=== PATIENT | female | born 1935 | race Caucasian/White ===

== ENCOUNTER 2018-01-15 15:45 | Inpatient (IN) | payer OTHER ==
--- OUTSIDE RECORDS SUMMARY | 2018-01-15 15:47 | XMS REPORT ---
:1935 Author Organization [employer] Care Team Providers Name Role Phone Mccarty, Na Provider Role Unavailable Allergies, Adverse Reactions, Alerts Substance Reaction Event Type Bactrim DS Info Not Available Drug Allergy Problems Problem Type Condition Code Onset Dates Condition Status Problem Mixed hyperlipidemia E78.2 Active Problem Pulmonary fibrosis J84.10 Active Problem Spondylosis M47.9 Active Problem Hypertension I10 Active Problem Anxiety F41.9 Active Problem Allergic rhinitis J30.9 Active Problem Hemorrhoids K64.9 Active Problem Fibrocystic breast N60.19 Active Problem GERD (gastroesophageal reflux K21.9 Active disease) Problem Urinary tract infection N39.0 Active Assessment Pulmonary hypertension I27.20 Active Assessment Anxiety F41.9 Active Assessment Pulmonary fibrosis J84.10 Active Problem At risk for falls Z91.81 Active Problem Iron deficiency anemia due to D50.8 Active dietary causes Assessment Iron deficiency anemia due to D50.8 Active dietary causes Problem Carotid occlusion, 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 Active Assessment Mixed hyperlipidemia E78.2 Active Problem Atopic dermatitis L20.9 Active Medications Medication Code Code Instructions Start End Status Dosage System Date Date [facility] 42364895042 81 MG Orally Active 1 tablet Once a day Nasacort [facility] 44409221423 55 MCG/ACT Active 1 puff in Allergy 24HR Nasally Once a each nostril day Breo Ellipta [facility] 36605791073 100-25 MCG/INH Active 1 puff Inhalation Once a day Omeprazole [facility] 78761587086 20 MG Orally Active 1 capsule Once a day Xanax [facility] [address]-64 0.25 MG Orally Active 1 tablet once a day Celexa [facility] 17688831180 20 MG Orally Active 1 tablet Once a day Zyrtec Allergy [facility] 32611825829 10 MG Orally Active 1 tablet Once a day Ventolin HFA [facility] [address]-56 90 MCG/ACT Active 2 puffs as Inhalation needed every 6 hrs Nystatin [facility] [address]-58 770002 UNIT/GM Active 1 application Externally to affected every 8 hrs area Ferrous [facility] [address]-77 325 (65 Fe) MG Active 1 tablet Sulfate Orally twice a day Simvastatin [facility] 03664834402 80 MG Orally Active 1 tablet in Once a day the evening Coreg [facility] [address]-17 6.25 MG Orally Active 1tablet twice a day Diflucan [facility] 74120806356 150 MG Orally Active 1 tablet Results No Known Results Summary Purpose e[employer]Works Submission
--- OUTSIDE RECORDS SUMMARY | 2018-01-15 15:47 | XMS REPORT | Clinical Summary ---
:1935 Author Organization [facility] Address [address] [place] [address] Care Team Providers Name Role Phone Hedy Mccarty DO Primary Care Provider Allergies Active Allergy Reactions Severity Noted Date Comments Sulfa (Sulfonamide Antibiotics) 05/09/2017 Current Medications Prescription Sig. Disp. Refills Start Date End Date Status VENTOLIN HFA 90 04/17/2017 Active mcg/actuation inhaler LUMIGAN 0.01 % ophthalmic 0.01 drops. 03/08/2017 Active drops carvedilol (COREG) 6.25 MG 6.25 mg. 04/10/2017 Active tablet citalopram (CeleXA) 20 MG 20 mg. 04/10/2017 Active tablet BREO ELLIPTA 100-25 04/17/2017 Active mcg/dose blister with device powder for inhalation omeprazole (PriLOSEC) 20 20 mg. 03/24/2017 Active MG capsule simvastatin (ZOCOR) 80 MG 80 mg. 04/10/2017 Active tablet timolol (TIMOPTIC) 0.5 % 03/03/2017 Active ophthalmic solution aspirin 325 MG tablet Take 325 mg by Active mouth daily. Active Problems Problem Noted Date Lymph nodes enlarged 06/05/2017 Encounters Date Type Specialty Care Team Description 06/27/2017 Telephone Cardiothoracic Surgery Neetu Reyna NP 06/10/2017 Telephone Cardiothoracic Surgery Mert Malhotra MD 06/05/2017 - Hospital Encounter Cardiology Mert Malhotra Lymph nodes 06/06/2017 MD Maryann enlarged 06/05/2017 Anesthesia Event Cardiothoracic Surgery Priyanka Vargas MD 06/05/2017 Procedure Pass Cardiothoracic Surgery 06/05/2017 Surgery Cardiothoracic Surgery Mert Malhotra MD BRONCHOSCOPY 06/04/2017 Telephone Cardiothoracic Surgery Neetu Reyna NP 05/27/2017 Telephone Cardiothoracic Surgery Diamond Bhatia MA 05/09/2017 Hospital Encounter Radiology Mert Malhotra MD 05/09/2017 Hospital Encounter Radiology Mert Malhotra MD 05/09/2017 Lab Lab Mert Malhotra MD 05/09/2017 Office Visit Cardiothoracic Surgery Mert Malhotra LAD ( lymphadenopathy), mediastinal (Primary Dx); MD Maryann SOB (shortness of breath); Pre-op testing 05/09/2017 Ancillary Orders Radiology Mert Malhotra MD after 01/14/2017 Family History Medical History Relation Name Comments Alzheimer's disease Brother Prostate cancer Brother Heart disease Father Stroke Father Arthritis Mother Breast cancer Sister Relation Name Status Comments Brother Father Mother Sister Social History Tobacco Use Types Packs/Day Years Used Date Never Smoker Alcohol Use Drinks/Week oz/Week Comments No Sex Assigned at Date Recorded Not on file Last Filed Vital Signs Vital Sign Reading Time Taken Blood Pressure 152/93 06/06/2017 11:43 AM CDT Pulse 89 06/06/2017 11:43 AM CDT Temperature 36.8 C (98.2 F) 06/06/2017 7:52 AM CDT Respiratory Rate 20 06/06/2017 7:52 AM CDT Oxygen Saturation 94% 06/06/2017 11:43 AM CDT Inhaled Oxygen Concentration - - Weight 72.5 kg (159 lb 13.3 oz) 06/06/2017 4:55 AM CDT Height 162.6 cm (5' 4") 06/05/2017 5:55 AM CDT Body Mass Index 27.44 06/06/2017 4:55 AM CDT Plan of Treatment Health Maintenance Due Date Last Done Comments SHINGRIX VACCINE (#1) 01/14/1984 ZOSTER VACCINE 1994 PNEUMOCOCCAL POLYSACCHARIDE VACCINE AGE 65 AND OVER 1999 PNEUMOCOCCAL-13 1999 INFLUENZA VACCINE 03/12/2018 Procedures Procedure Name Priority Date/Time Associated Diagnosis Comments NJ AN ELECTIVE Routine 06/05/2017 8:31 AM ENDOTRACHEAL AIRWAY CDT Procedure Note - Priyanka Vargas MD - 06/05/2017 8:30 AM CDT Airway Performed by: PRIYANKA VARGAS Authorized by: PRIYANKA VARGAS Location: OR Urgency: Elective Difficult Airway: No Anesthesiologist: PRIYANKA VARGAS Resident/RECEPTION AGENT: VITO QUINONES Preoxygenated with 100% O2: Yes C-spine Precautions Maintained Throughout: Yes Mask Ventilation: Assisted mask Final Airway Type: Endotracheal airway Final Endotracheal Airway: ETT Cuffed: Yes Technique Used: Direct laryngoscopy Insertion Site: Oral Blade Type: Rose Laryngoscope Blade/Videolaryngoscope Blade Size: 2 ETT Size (mm): 8.5 Cuff at minimum occlusion pressure: Yes Measured from: Lips ETT to Lips (cm): 20 Placement Verified by: CO2 detection, direct visualization and equal breath sounds Laryngoscopic view: Grade I - full view of glottis Rapid Sequence Induction (RSI): No Number of Attempts at Approach: 1 x1 attempt easy, atraumatic, lips and teeth as preinduction Mask vent with OPAW Eyes taped after LOLr and prior to Mask ventilation after 01/14/2017 Results Estimated GFR (06/06/2017 5:40 AM)Only the most recent of2 resultswithin the time period is included. Component Value Ref Range GFR Non Af Amer 68 mL/min/1.73 m2 GFR Af Amer 83 mL/min/1.73 m2 Comment: Chronic kidney disease: <60 mL/min/1.73m2 Kidney failure: <15 mL/min/1.73m2 The estimated GFR is calculated from the IDMS-traceable Modification of Diet in Renal Disease Equation. The accuracy of the calculation is poor when the creatinine is normal. Calculated values >90 mL/min/1.73m2 are not reported. This equation has not been validated in children (<18 years), women, the elderly (>70 years), or ethnic groups other than Caucasians and Americans. Specimen Performing Laboratory Plasma specimen [facility] DEPARTMENT OF PATHOLOGY AND GENOMIC MEDICINE [address] [place] [address] CBC with platelet and differential (06/06/2017 5:40 AM)Only the most recent of2 resultswithin the time period is included. Component Value Ref Range WBC 7.58 4.50 - 11.00 k/uL RBC 3.61 (L) 4.20 - 5.50 m/uL HGB 10.6 (L) 12.0 - 16.0 g/dL HCT 32.3 (L) 37.0 - 47.0 % MCV 89.5 82.0 - 100.0 fL MCH 29.4 27.0 - 34.0 pg MCHC 32.8 31.0 - 37.0 g/dL RDW - SD 45.7 37.0 - 55.0 fL MPV 10.0 8.8 - 13.2 fL Platelet count 188 150 - 400 k/uL Nucleated RBC 0.00 /100 WBC Neutrophils 68.5 39.0 - 69.0 % Lymphocytes 20.6 (L) 25.0 - 45.0 % Monocytes 7.4 0.0 - 10.0 % Eosinophils 2.8 0.0 - 5.0 % Basophils 0.3 0.0 - 1.0 % Immature granulocytes 0.4Comment: "Immature granulocytes" 0.0 - 1.0 % (promyelocytes, myelocytes, metamyelocytes) Specimen Performing Laboratory [facility] DEPARTMENT OF PATHOLOGY AND [facility] MEDICINE [address] [place] [address] Basic metabolic panel (06/06/2017 5:40 AM) Component Value Ref Range Sodium 130 (L) 135 - 148 mEq/L Potassium 4.0 3.5 - 5.0 mEq/L Chloride 91 (L) 98 - 112 mEq/L CO2 25 24 - 31 mEq/L Anion gap 14 7 - 15 mEq/L Comment: Starting from November , anion gap calculation no longer incorporates potassium. Please note the change. BUN 10 8 - 23 mg/dL Creatinine 0.8 0.5 - 0.9 mg/dL Glucose 92 65 - 99 mg/dL Calcium 9.1 8.8 - 10.2 mg/dL Specimen Performing Laboratory Plasma specimen [facility] DEPARTMENT OF PATHOLOGY AND GENOMIC MEDICINE [address] [place] [address] AFB culture (06/05/2017 10:22 AM) Component Value Ref Range AFB culture isolate No growth after 6 weeks of incubation. Comment: Specimen Information Specimen Source: Biopsy Specimen Site: Lymph node , 4Right FNA Specimen Performing Laboratory Tissue - Other [facility] DEPARTMENT OF PATHOLOGY AND [facility] MEDICINE [address] [place] [address] Fungus culture (06/05/2017 10:22 AM) Component Value Ref Range Fungus culture isolate No growth after 4 weeks of incubation. Comment: Specimen Information Specimen Source: Biopsy Specimen Site: Lymph node , 4Right FNA Specimen Performing Laboratory Tissue - Other [facility] DEPARTMENT OF PATHOLOGY AND GENOMIC MEDICINE [address] [place] [address] XR Chest 1 Vw Portable (06/05/2017 10:18 AM) Specimen Performing Laboratory [facility] [address] [place] [address] Narrative EXAMINATION:XR CHEST 1 VW PORTABLE CLINICAL HISTORY:SHORTNESS OF BREATH COMPARISON:None. IMPRESSION: Single frontal view reveals a normal cardiomediastinal silhouette, apart from arch calcifications. Pulmonary vasculature is prominent with diffuse patchy airspace opacities concerning for multilobar pneumonia. The remainder of the examination is unremarkable, apart from degenerative changes of the shoulders. [facility]-[id number] Procedure Note Interface, Radiology Results Incoming - 06/05/2017 10:28 AM CDT EXAMINATION: XR CHEST 1 VW PORTABLE CLINICAL HISTORY: SHORTNESS OF BREATH COMPARISON: None. IMPRESSION: Single frontal view reveals a normal cardiomediastinal silhouette, apart from arch calcifications. Pulmonary vasculature is prominent with diffuse patchy airspace opacities concerning for multilobar pneumonia. The remainder of the examination is unremarkable, apart from degenerative changes of the shoulders. [facility]-[id number] Fungus smear (06/05/2017 9:22 AM) Component Value Ref Range Fungus smear No fungi observed. Comment: Specimen Information Specimen Source: Biopsy Specimen Site: Lymph node , 4Right FNA Specimen Performing Laboratory Biopsy [facility] DEPARTMENT OF PATHOLOGY AND GENOMIC MEDICINE [address] [place] [address] Aerobic culture (06/05/2017 9:22 AM) Component Value Ref Range Aerobic culture isolate No growth after 3 days. Comment: Specimen Information Specimen Source: Biopsy Specimen Site: Lymph node , 4Right FNA Specimen Performing Laboratory Tissue - Other [facility] DEPARTMENT OF PATHOLOGY AND GENOMIC MEDICINE [address] [place] [address] Gram stain (06/05/2017 9:22 AM) Component Value Ref Range Gram stain isolate Few WBC's No organisms seen Comment: Specimen Information Specimen Source: Biopsy Specimen Site: Lymph node , 4Right FNA Specimen Performing Laboratory Biopsy [facility] DEPARTMENT OF PATHOLOGY AND GENOMIC MEDICINE [address] [place] [address]33 AFB stain (06/05/2017 9:22 AM) Component Value Ref Range AFB stain No acid fast bacilli (AFB) seen. Comment: Specimen Information Specimen Source: Biopsy Specimen Site: Lymph node , 4Right FNA Specimen Performing Laboratory Biopsy [facility] DEPARTMENT OF PATHOLOGY [address] [address] Anaerobic culture (06/05/2017 9:22 AM) Component Value Ref Range Anaerobic culture isolate No anaerobic organisms isolated. Comment: Specimen Information Specimen Source: Biopsy Specimen Site: Lymph node , 4Right FNA Specimen Performing Laboratory Tissue - Other [facility] OF PATHOLOGY [address] [address] Flow cytometry evaluation (06/05/2017 8:40 AM) Component Value Ref Range Flow cytometry evaluation See link below for PDF Lab Report Specimen Performing Laboratory [facility] DEPARTMENT PATHOLOGY [address] [address] Cytology (non-gynecological) request (06/05/2017 8:40 AM)Only the most recent of2 resultswithin the time period is included. Component Value Ref Range Cytology (non-gynecological) report See link below for PDF Lab Report Specimen Performing Laboratory [facility] DEPARTMENT OF PATHOLOGY AND [address] [address] Type and screen (06/05/2017 6:40 AM)Only the most recent of2 resultswithin the time period is included. Component Value Ref Range ABO grouping O Rh type POS Antibody screen (gel) NEG Specimen Performing Laboratory Blood [facility] DEPARTMENT OF PATHOLOGY [address] [address] Partial thromboplastin time, activated (05/09/2017 4:00 PM) Component Value Ref Range PTT 26.9 23.0 - 36.0 sec Comment: PTT therapeutic range for unfractionated heparin is 61.0-112.0 seconds which corresponds to Anti-Xa 0.3-0.7 U/ml. Specimen Performing Laboratory Blood [facility] DEPARTMENT PATHOLOGY [address] [address] Prothrombin time with INR (05/09/2017 4:00 PM) Component Value Ref Range Prothrombin time 12.8 12.0 - 15.0 sec INR 1.0 Comment: The International Normalized Ratio (INR) is a therapeutic monitoring tool for patients who are stable on oral anticoagulant therapy. An INR of 2.0-3.0 is suggested for deep vein thrombosis/pulmonary embolism. Specimen Performing Laboratory Blood [facility] DEPARTMENT OF PATHOLOGY AND GENOMIC MEDICINE [address] [place] [address] Comprehensive metabolic panel (05/09/2017 4:00 PM) Component Value Ref Range Sodium 140 135 - 148 mEq/L Potassium 5.0 3.5 - 5.0 mEq/L Chloride 101 98 - 112 mEq/L CO2 26 24 - 31 mEq/L Anion gap 13 7 - 15 mEq/L Comment: Starting from November , anion gap calculation no longer incorporates potassium. Please note the change. BUN 19 8 - 23 mg/dL Creatinine 1.1 (H) 0.5 - 0.9 mg/dL Glucose 106 (H) 65 - 99 mg/dL Calcium 9.7 8.8 - 10.2 mg/dL Protein 7.3 6.3 - 8.3 g/dL Comment: Bern 4.6-7.0 g/dL 1 week 4.4-7.6 g/dL 7 months-1year5.1-7.3 g/dL 1-2 years5.6-7.5 g/dL >3 years6.0-8.0 g/dL 18-150 6.3-8.3 g/dL Albumin 3.6 3.5 - 5.0 g/dL A/G ratio 1.0 0.7 - 3.8 Alkaline phosphatase 66 35 - 104 U/L AST 29 10 - 35 U/L ALT 23 5 - 50 U/L Total bilirubin <0.2 0.0 - 1.2 mg/dL Specimen Performing Laboratory Plasma specimen [facility] DEPARTMENT OF PATHOLOGY AND GENOMIC MEDICINE [address] [place] [address] Chest External Study (05/02/2017 1:55 PM)Only the most recent of2 resultswithin the time period is included. Specimen Performing Laboratory [facility] [address] [place] [address] Narrative This exam was not acquired at a [facility] facility and has not been interpreted by a [facility] Provider.The exam was imported into our imaging system for comparisons purposes. after 01/14/2017 Insurance Payer Benefit Plan / Group Subscriber ID Type Phone Address [address] [facility] xxxxxxxxx O
[2018-01-15 17:09] LABS: Absolute Lymphocytes (CBC) 0.5 K/uL (0.7-4.9); Absolute Monocytes 0.3 K/uL (0.1-1.3); Basophils % 0.4 % (0-1.3); Eosinophils % 1.1 % (0-4.4); Hematocrit 35.3 % (36.0-45.0); Lymphocytes % 6.1 % (15.3-44.8); MCH 31.3 pg (27.0-35.0); MCV 94.2 fL (80-100); MPV 8.3 fL (7.6-11.3); Monocytes % 3.2 % (3.3-12.3); RBC Red Blood Cell Count 3.75 M/uL (3.86-4.86)
[2018-01-15 17:15] LABS: Arterial Blood Carboxyhemoglob 1.4 % (0-1.5); Blood Gas Oxyhemoglobin 91.6 % (94-97); Blood O2 Saturation 93.9 % (92-98.5)
[2018-01-15 17:18] LABS: Protime INR 1.06
[2018-01-15] MEDS ORDERED: FUROSEMIDE 40 MG/4 ML VIAL ONE ×2 (17:21→17:52)
[2018-01-15 17:22] LABS: Potassium 4.6 mEq/L (3.6-5.0)
[2018-01-15 17:28] LABS: Albumin 3.5 g/dL (3.2-5.5); Bilirubin Direct 0.1 mg/dL (0-0.2); Bilirubin Total 0.6 mg/dL (0.3-1.2)
[2018-01-15 17:31] LABS: CKMB Creatine Kinase MB 5.6 ng/ml (0.3-4.0)
[2018-01-15 17:34] LABS: Magnesium 1.4 mg/dL (1.8-2.5)
--- NOTE | 2018-01-15 17:34 | RAD REPORT ---
[facility] 5:23 pm CLINICAL HISTORY: sob COMPARISON: August 2017 FINDINGS: Moderate bilateral pulmonary opacities are seen. The heart is enlarged. Mediastinal lymph adenopathy is unchanged. . The heart is normal size IMPRESSION: Moderate bilateral pulmonary opacities. This probably represents mild pulmonary edema, pneumonia or pneumonitis superimposed over pulmonary fibrosis
[2018-01-15] MEDS ORDERED: ALBUTEROL 2.5 MG/3 ML NEB SOL ONE (17:52)
[2018-01-15] MEDS ORDERED: ONDANSETRON 4 MG/2 ML VIAL IV PRN (18:02)
[2018-01-15] MEDS ORDERED: ACETAMINOPHEN 500 MG TAB PO PRN (18:02)
[2018-01-15] MEDS ORDERED: ALBUTEROL 2.5 MG/3 ML NEB SOL NEB PRN (18:02)
[2018-01-15] MEDS ORDERED: IPRATROPIUM BROM 0.5MG/2.5ML NEB PRN (18:02)
[2018-01-15] MEDS ORDERED: Magnesium Sulfate 2gm IVPB 2 G/50 ML BAG IV ONE (18:03)
--- NOTE | 2018-01-15 18:19 | EDPHYS ---
Physician Documentation [facility] Name: Herlinda Matias Age: 83 yrs Sex: Female : 1935 Arrival Date: 01/15/2018 Time: 15:51 Bed 23 Private MD: Chris Pierce K ED Physician Yusef Fuentes HPI: 01/15 18:05 This 83 yrs old Female presents to ER via Ambulatory with complaints of Leg pm1 Swelling and Shortness of breath. 18:05 The patient has shortness of breath at rest. Onset: The symptoms/episode began/occurred pm1 3 day(s) ago. Duration: The symptoms are continuous, and are steadily getting worse. The patient's shortness of breath is aggravated by exertion, is alleviated by nothing. Associated signs and symptoms: Pertinent negatives: chest pain, productive cough, fever. Severity of symptoms: in the emergency department the symptoms are worse Pain is currently a 0 / 10. Patient denies having pedal edema in the past. PCP Lul, Pulmonology Stan. Patient reports 10 pound weight gain over the past 3 days. Patient currently taking spirolactone for diuresis. Historical: - Allergies: 16:04 Sulfa (Sulfonamide Antibiotics); aj - Home Meds: 16:04 aspirin 325 mg Oral tab 1 tab once daily [Active]; citalopram 20 mg tab 1 tab once aj daily [Active]; ferrous sulfate 325 mg (65 mg iron) Oral tab three times a day [Active]; Keflex 500 mg Oral cap 1 cap daily [Active]; omeprazole 20 mg Oral cpDR 1 cap once daily [Active]; sildenafil 20 mg Oral tab 1 tab 3 times per day [Active]; simvastatin 80 mg Oral tab 80 mg daily [Active]; timolol maleate 0.5 % Opht solg 1 drop once daily [Active]; Ventolin HFA 90 mcg/actuation Nebulizer HFAA 2 puffs every 4 hours [Active]; Vitamin C 500 mg Oral tab every morning [Active]; Zyrtec 10 mg Oral tab 1 tab once daily [Active]; 16:06 metoprolol tartrate 25 mg Oral tab 1 tab once daily [Active]; spironolactone 25 mg Oral aj tab 1 tab once daily [Active]; - PMHx: 16:04 Anxiety; pulmonary fibrosis; PULMONARY HYPERTENSION; aj - PSHx: 16:04 None; aj - Immunization history:: Adult Immunizations up to date. - Social history:: Smoking status: Patient/guardian denies using tobacco. - Ebola Screening: : Patient negative for fever greater than or equal to 101.5 degrees Fahrenheit, and additional compatible Ebola Virus Disease symptoms Patient denies exposure to infectious person Patient denies travel to an Ebola-affected area in the 21 days before illness onset No symptoms or risks identified at this time. ROS: 18:05 Constitutional: Negative for fever, chills, and weight loss, Eyes: Negative for injury, pm1 pain, redness, and discharge, ENT: Negative for injury, pain, and discharge, Neck: Negative for injury, pain, and swelling. 18:05 Abdomen/GI: Negative for abdominal pain, nausea, vomiting, diarrhea, and constipation, Back: Negative for injury and pain, MS/Extremity: Negative for injury and deformity, Skin: Negative for injury, rash, and discoloration. 18:05 Cardiovascular: Positive for edema, Negative for chest pain. 18:05 Respiratory: Positive for shortness of breath. 18:05 Neuro: Positive for Forgetfulness , Negative for altered mental status, dizziness, headache. Exam: 18:05 Constitutional: This is a well developed, well nourished patient who is awake, alert, pm1 and in no acute distress. Head/Face: Normocephalic, atraumatic. Eyes: Pupils equal round and reactive to light, extra-ocular motions intact. Lids and lashes normal. Conjunctiva and sclera are non-icteric and not injected. Cornea within normal limits. Periorbital areas with no swelling, redness, or edema. ENT: Nares patent. No nasal discharge, no septal abnormalities noted. Tympanic membranes are normal and external auditory canals are clear. Oropharynx with no redness, swelling, or masses, exudates, or evidence of obstruction, uvula midline. Mucous membranes moist. Neck: Trachea midline, no thyromegaly or masses palpated, and no cervical lymphadenopathy. Supple, full range of motion without nuchal rigidity, or vertebral point tenderness. No Meningismus. Chest/axilla: Normal chest wall appearance and motion. Nontender with no deformity. No lesions are appreciated. 18:05 Abdomen/GI: Soft, non-tender, with normal bowel sounds. No distension or tympany. No guarding or rebound. No evidence of tenderness throughout. Back: No spinal tenderness. No costovertebral tenderness. Full range of motion. Skin: Warm, dry with normal turgor. Normal color with no rashes, no lesions, and no evidence of cellulitis. MS/ Extremity: Pulses equal, no cyanosis. Neurovascular intact. Full, normal range of motion. 18:05 Cardiovascular: Rate: normal, Rhythm: regular, Pulses: no pulse deficits are appreciated, Heart sounds: normal, normal S1and S2, murmur, not appreciated, rub, not appreciated, gallop, not appreciated, Edema: pedal edema, that is moderate, 3+. 18:05 Respiratory: the patient does not display signs of respiratory distress, Respirations: normal, Breath sounds: decreased breath sounds, are located in both bases. 18:05 Neuro: Orientation: is normal, Motor: moves all fours, Sensation: is normal, no obvious gross deficits. Vital Signs: 16:06 BP 98 / 63; Pulse 86; Resp 25; Temp 97.8; Pulse Ox 88% on 2 lpm NC; Weight 77.11 kg; aj Height 5 ft. 5 in. (165.10 cm); 17:30 BP 105 / 60; Pulse 85; Resp 24; Pulse Ox 95% on R/A; kr2 18:30 BP 101 / 70; Pulse 75; Resp 26; Pulse Ox 93% on 2 lpm NC; kr2 19:30 BP 128 / 75; Pulse 75; Resp 24; Pulse Ox 95% on 3 lpm NC; kr2 20:30 BP 131 / 75; Pulse 78; Resp 22; Pulse Ox 97% on 3 lpm NC; kr2 16:06 Body Mass Index 28.29 (77.11 kg, 165.10 cm) aj MDM: 16:34 Patient medically screened. pm1 17:50 Physician consultation: Zay Melchor MD was contacted at 17:50, regarding admission, pm1 patient's condition, and will see patient in ED, shortly. 18:00 Data reviewed: vital signs. pm1 01/15 16:43 Order name: Basic Metabolic Panel pm1 01/15 16:43 Order name: BNP pm1 01/15 16:43 Order name: CBC with Diff pm1 01/15 16:43 Order name: Ckmb pm1 01/15 16:43 Order name: CPK; Complete Time: 17:38 pm1 01/15 16:43 Order name: LFT's; Complete Time: 17:38 pm1 01/15 16:43 Order name: Magnesium; Complete Time: 17:38 pm1 01/15 16:43 Order name: PT-INR; Complete Time: 17:38 pm1 01/15 16:43 Order name: Ptt, Activated; Complete Time: 17:38 pm1 01/15 16:43 Order name: Troponin (emerg Dept Use Only); Complete Time: 17:38 pm1 01/15 16:43 Order name: Blood Culture Adult (2) pm1 01/15 16:43 Order name: Basic Metabolic Panel; Complete Time: 17:38 EDMS 01/15 16:43 Order name: BNP B-Type Natriuretic Peptide; Complete Time: 17:38 EDMS 01/15 16:43 Order name: CBC with Automated Diff; Complete Time: 17:38 EDMS 01/15 16:43 Order name: XRAY Chest (1 view); Complete Time: 17:38 pm1 01/15 16:43 Order name: CKMB Creatine Kinase MB; Complete Time: 17:38 EDMS 01/15 16:47 Order name: Procalcitonin; Complete Time: 01:18 pm1 01/15 16:52 Order name: ABG; Complete Time: 17:38 pm1 01/15 18:06 Order name: Echo with Doppler EDMS 01/15 18:06 Order name: CBC with Automated Diff EDMS 01/15 18:06 Order name: CBC with Automated Diff EDMS 01/15 18:06 Order name: CBC with Automated Diff EDMS 01/15 18:06 Order name: Comprehensive Metabolic Panel EDMS 01/15 18:06 Order name: Comprehensive Metabolic Panel EDMS 01/15 18:06 Order name: Comprehensive Metabolic Panel EDMS 01/15 18:06 Order name: Comprehensive Metabolic Panel EDMS 01/15 16:43 Order name: EKG; Complete Time: 16:43 pm1 01/15 16:43 Order name: Cardiac monitoring; Complete Time: 17:06 pm1 01/15 16:43 Order name: EKG - Nurse/Tech; Complete Time: 17:16 pm1 01/15 16:43 Order name: IV Saline Lock; Complete Time: 17:05 pm1 01/15 16:43 Order name: Labs collected and sent; Complete Time: 17:05 pm1 01/15 16:43 Order name: O2 Per Protocol; Complete Time: 17:05 pm1 01/15 16:43 Order name: O2 Sat Monitoring; Complete Time: 17:05 pm1 01/15 16:43 Order name: Urine Dipstick-Ancillary (obtain specimen); Complete Time: 18:16 pm1 01/15 17:10 Order name: Muro; Complete Time: 17:56 pm1 01/15 18:06 Order name: Physical Therapy Consult EDAZ 01/15 18:06 Order name: Heart Healthy EDMS Administered Medications: 17:30 Drug: Lasix 40 mg Route: IVP; Site: right forearm; kr2 17:45 Follow up: Response: No adverse reaction kr2 17:56 Drug: Albuterol 2.5 mg Route: Inhalation; kr2 20:39 Follow up: Response: No adverse reaction kr2 17:56 Drug: Lasix 40 mg Route: IVP; Site: right forearm; kr2 20:38 Follow up: Response: No adverse reaction kr2 18:00 Drug: Magnesium Sulfate 2 grams Route: IVPB; Infused Over: 2 hrs; Site: right forearm; kr2 20:00 Follow up: Response: No adverse reaction; IV Status: Completed infusion kr2 Disposition: 01/15/18 18:18 Hospitalization ordered by Zay Melchor for Inpatient Admission. Preliminary diagnosis are Acute combined systolic (congestive) and diastolic (congestive) heart failure, Pulmonary hypertension. - Bed requested for Telemetry/MedSurg (Inpatient). - Status is Inpatient Admission. kr2 - Condition is Stable. - Problem is new. - Symptoms have improved. UTI on Admission? No Addendum: 01/17/2018 21:35 Co-signature as Attending Physician, Yusef Fuentes MD. r n Signatures: Dispatcher [employer] [facility] Lore Brambila RN RN dw Myers, Amanda, RN RN aj Nieto, Roman, MD MD rn Marinas, Patrick, SAYRA KITCHEN AIDE pm1 Cherry Jay RN RN kr2 Corrections: (The following items were deleted from the chart) 01/15 18:38 18:18 Hospitalization Ordered by Zay Melchor MD for Inpatient Admission. Preliminary dw diagnosis is Acute combined systolic (congestive) and diastolic (congestive) heart failure; Pulmonary hypertension. Bed requested for Telemetry/MedSurg (Inpatient). Status is Inpatient Admission. Condition is Stable. Problem is new. Symptoms have improved. UTI on Admission? No. pm1 20:40 18:38 01/15/2018 18:18 Hospitalization Ordered by Zay Melchor MD for Inpatient kr2 Admission. Preliminary diagnosis is Acute combined systolic (congestive) and diastolic (congestive) heart failure; Pulmonary hypertension. Bed requested for Telemetry/MedSurg (Inpatient). Status is Inpatient Admission. Condition is Stable. Problem is new. Symptoms have improved. UTI on Admission? No. dw
--- NOTE | 2018-01-15 18:19 | ER ---
Nurse's Notes [facility] Name: Herlinda Matias Age: 83 yrs Sex: Female : 1935 Arrival Date: 01/15/2018 Time: 15:51 Bed 23 Private MD: Chris Pierce K Diagnosis: Acute combined systolic (congestive) and diastolic (congestive) heart failure;Pulmonary hypertension Presentation: 01/15 16:02 Presenting complaint: Patient states: Reports fatigues, generalized weakness, malaise, aj and bilateral leg swelling for 2 days. Transition of care: patient was not received from another setting of care. Onset of symptoms was January 12, 2018. Risk Assessment: Do you want to hurt yourself or someone else? Patient reports no desire to harm self or others. Care prior to arrival: None. 16:02 Method Of Arrival: Ambulatory aj 16:02 Acuity: LALITA 3 aj 16:30 Initial Sepsis Screen: Does the patient meet any 2 criteria? No. Patient's initial kr2 sepsis screen is negative. Does the patient have a suspected source of infection? No. Patient's initial sepsis screen is negative. Triage Assessment: 16:04 General: Appears in no apparent distress. comfortable, Behavior is calm, cooperative, aj appropriate for age. Pain: Denies pain. Neuro: Level of Consciousness is awake, alert, obeys commands, Oriented to person, place, time, situation, Appropriate for age. Cardiovascular: Edema is 2+ to left ankle, left foot, right ankle and right foot. Respiratory: Airway is patent Respiratory effort is even, unlabored, Respiratory pattern is regular, symmetrical. Derm: Skin is intact, is healthy with good turgor, Skin is pink, warm \T\ dry. normal. Musculoskeletal:. Historical: - Allergies: 16:04 Sulfa (Sulfonamide Antibiotics); aj - Home Meds: 16:04 aspirin 325 mg Oral tab 1 tab once daily [Active]; citalopram 20 mg tab 1 tab once aj daily [Active]; ferrous sulfate 325 mg (65 mg iron) Oral tab three times a day [Active]; Keflex 500 mg Oral cap 1 cap daily [Active]; omeprazole 20 mg Oral cpDR 1 cap once daily [Active]; sildenafil 20 mg Oral tab 1 tab 3 times per day [Active]; simvastatin 80 mg Oral tab 80 mg daily [Active]; timolol maleate 0.5 % Opht solg 1 drop once daily [Active]; Ventolin HFA 90 mcg/actuation Nebulizer HFAA 2 puffs every 4 hours [Active]; Vitamin C 500 mg Oral tab every morning [Active]; Zyrtec 10 mg Oral tab 1 tab once daily [Active]; 16:06 metoprolol tartrate 25 mg Oral tab 1 tab once daily [Active]; spironolactone 25 mg Oral aj tab 1 tab once daily [Active]; - PMHx: 16:04 Anxiety; pulmonary fibrosis; PULMONARY HYPERTENSION; aj - PSHx: 16:04 None; aj - Immunization history:: Adult Immunizations up to date. - Social history:: Smoking status: Patient/guardian denies using tobacco. - Ebola Screening: : Patient negative for fever greater than or equal to 101.5 degrees Fahrenheit, and additional compatible Ebola Virus Disease symptoms Patient denies exposure to infectious person Patient denies travel to an Ebola-affected area in the 21 days before illness onset No symptoms or risks identified at this time. Screenin:30 Abuse screen: Denies threats or abuse. Denies injuries from another. Nutritional kr2 screening: No deficits noted. Tuberculosis screening: No symptoms or risk factors identified. Fall Risk IV access (20 points). Ambulatory Aid- Crutches/Cane/Walker (15 pts). Assessment: 16:30 General: Appears in no apparent distress. comfortable, well groomed, well developed, kr2 well nourished, Behavior is calm, cooperative, appropriate for age. Pain: Denies pain. Neuro: Level of Consciousness is awake, alert, obeys commands, Oriented to person, place, time, situation, Appropriate for age. Cardiovascular: Capillary refill < 3 seconds in bilateral fingers Patient's skin is warm and dry. Cardiovascular: Edema is 2+ to left foot, left toes, right foot and right toes. Respiratory: Reports shortness of breath on exertion Airway is patent Respiratory effort is even, unlabored, Respiratory pattern is regular, symmetrical, Breath sounds with crackles bilaterally. the patient has mild shortness of breath. GI: Abdomen is flat, non-distended, Bowel sounds present X 4 quads. : Denies burning with urination. EENT: Nares are clear bilaterally Oral mucosa is moist. Derm: Skin is intact, is healthy with good turgor, Skin is pink, warm \T\ dry. Musculoskeletal: Circulation, motion, and sensation intact. 17:30 Reassessment: Patient appears in no apparent distress at this time. Patient and/or kr2 family updated on plan of care and expected duration. Pain level reassessed. Patient is alert, oriented x 3, equal unlabored respirations, skin warm/dry/pink. Patient denies pain at this time. 18:30 Reassessment: Patient appears in no apparent distress at this time. Patient and/or kr2 family updated on plan of care and expected duration. Pain level reassessed. Patient is alert, oriented x 3, equal unlabored respirations, skin warm/dry/pink. Patient denies pain at this time. Patient states symptoms have improved. 19:30 Reassessment: No changes from previously documented assessment. kr2 20:30 Reassessment: Patient appears in no apparent distress at this time. Patient and/or kr2 family updated on plan of care and expected duration. Pain level reassessed. Patient is alert, oriented x 3, equal unlabored respirations, skin warm/dry/pink. Patient denies pain at this time. Patient states feeling better. Vital Signs: 16:06 BP 98 / 63; Pulse 86; Resp 25; Temp 97.8; Pulse Ox 88% on 2 lpm NC; Weight 77.11 kg; aj Height 5 ft. 5 in. (165.10 cm); 17:30 BP 105 / 60; Pulse 85; Resp 24; Pulse Ox 95% on R/A; kr2 18:30 BP 101 / 70; Pulse 75; Resp 26; Pulse Ox 93% on 2 lpm NC; kr2 19:30 BP 128 / 75; Pulse 75; Resp 24; Pulse Ox 95% on 3 lpm NC; kr2 20:30 BP 131 / 75; Pulse 78; Resp 22; Pulse Ox 97% on 3 lpm NC; kr2 16:06 Body Mass Index 28.29 (77.11 kg, 165.10 cm) aj ED Course: 15:51 Patient arrived in ED. sb2 15:51 Chris Pierce MD is Private Physician. sb2 16:04 Triage completed. aj 16:06 Arm band placed on left wrist. Patient placed in waiting room, Patient notified of wait aj time. 16:30 Patient has correct armband on for positive identification. Bed in low position. Call kr2 light in reach. Side rails up X2. Adult w/ patient. threat monitoring analyst on. Pulse ox on. NIBP on. Door closed. Warm blanket given. Head of bed elevated. 16:31 Cherry Jay, AMANDA is Primary Nurse. kr2 16:34 Yoseph Galvin NP is PHCP. pm1 16:34 Yusef Fuentes MD is Attending Physician. pm1 17:03 Inserted saline lock: 20 gauge in right forearm, using aseptic technique. Blood mb3 collected. 17:21 XRAY Chest (1 view) In Process Unspecified. EDMS 17:21 X-ray completed. Portable x-ray completed in exam room. Patient tolerated procedure jb2 well. 17:23 EKG done, by roof service technician. reviewed by Yoseph Galvin NP. sm3 17:30 Muro cath inserted, using sterile technique, 16 Fr., by ms, balloon inflated, to kr2 gravity drainage, urine specimen collected. 18:18 Zay Melchor MD is Hospitalizing Provider. pm1 20:34 No provider procedures requiring assistance completed. Patient admitted, IV remains in kr2 place. Administered Medications: 17:30 Drug: Lasix 40 mg Route: IVP; Site: right forearm; kr2 17:45 Follow up: Response: No adverse reaction kr2 17:56 Drug: Albuterol 2.5 mg Route: Inhalation; kr2 20:39 Follow up: Response: No adverse reaction kr2 17:56 Drug: Lasix 40 mg Route: IVP; Site: right forearm; kr2 20:38 Follow up: Response: No adverse reaction kr2 18:00 Drug: Magnesium Sulfate 2 grams Route: IVPB; Infused Over: 2 hrs; Site: right forearm; kr2 20:00 Follow up: Response: No adverse reaction; IV Status: Completed infusion kr2 Outcome: 18:18 Decision to Hospitalize by Provider. pm1 20:34 Admitted to Tele accompanied by nurse, family with patient, via stretcher, room 406, kr2 with oxygen, with chart, Report called to Vijaya 20:34 Condition: stable 20:34 Instructed on the need for admit, Demonstrated understanding of instructions. 20:40 Patient left the ED. kr2 Signatures: Dispatcher [employer] Brianne Morse, RN RN Matthew Lovelace jb2 Yoseph Galvin, ASSISTANT ACCOUNT EXECUTIVE ASSISTANT ACCOUNT EXECUTIVE pm1 Cherry Jay, AMANDA RN kr2 Laney López sb2 Dao Ghotra RN RN mb3 Corrina Morris sm3
--- NOTE | 2018-01-15 19:55 | HP ---
Date of Admission: 01/15/2018 Primary Care Physician: Dr. Mccarty. Additional Consulting Physician: Dr. Patricia. Chief Complaint: Generalized weakness, leg swelling. Code Status: DNR. The patient's daughter is a medical power of contract attorney. The patient did not have a living will. History Of Present Illness: The patient is an 83-year-old female with past medical history of moderate idiopathic pulmonary fibrosis, pulmonary hypertension, tricuspid regurgitation, major depressive disorder, GERD, hyperlipidemia, glaucoma, who was in her usual state of health until the past few days when the patient has been feeling overall weak and not like herself. The patient according to the daughter has been somewhat more forgetful. The patient denies any cough, sputum production, ill contacts, or fevers. No nausea or vomiting. The patient does state that she has not been cooking for herself and has been eating canned soup and snacks including potato chips that have a significant amount of salt. The patient is not following a 2 g sodium diet or a fluid-restricted diet. The patient noticed worsening swelling of her lower extremities and gained 10 pounds. The patient is normally on oxygen approximately 3 L all the time due to her pulmonary fibrosis. Due to her worsening conditions that are constant and moderate, the patient came into the ER. No alleviating or aggravating factors. In the ER, her vital signs did show hypoxia and therefore was started on oxygen. She was 88%. She was afebrile. The patient's workup revealed magnesium of 1.4. Troponin was 0.05. BNP was elevated at 2000. Procalcitonin was negative. She was not septic. Her creatinine was elevated at 1.49, usually baseline is normal. Her white count was also normal. The patient's chest x-ray did show some bilateral pulmonary opacities representing likely mild pulmonary edema over pulmonary fibrosis. The patient was then referred for admission. She was given 80 mg of IV Lasix. When seen in the ER, the patient was awake, alert, oriented x3, in some mild distress due to her breathing. Past Medical History: Pulmonary fibrosis, pulmonary hypertension, tricuspid regurgitation, major depressive disorder, anemia, GERD, hyperlipidemia, glaucoma. Past Surgical History: Endoscopy. Family History: Noncontributory in this 83-year-old female. Social History: The patient denies any tobacco use, alcohol use, or illicit drug use. The patient lives at home by herself. She has a walker, fairly independent in her activities of daily living. Allergies: TO SULFA. Medications: List reviewed. Review of Systems: An 11-point system reviewed, negative except as per HPI. Physical Examination: Vital Signs: Blood pressure 98/63, pulse 86, respirations 25, temperature 97.8 , O2 88% on 2 L via nasal cannula. General: Awake, alert, oriented x3, in some mild distress due to difficulty breathing. Elderly female, ill appearing. HEENT: Normocephalic, atraumatic. PERRLA. EOMI. Dry mucous membranes. Oropharynx clear. Conjunctiva anicteric. Poor dentition. Neck: Supple. Trachea midline. CV: S1, S2. Regular rate and rhythm. Peripheral pulses present. Respiratory: Diminished breath sounds bilaterally. No wheezing or stridor. Some crackles heard. No use of accessory muscles. Gastrointestinal: Abdomen is soft, nontender, and nondistended. Positive bowel sounds. No guarding or rigidity. Extremities: No clubbing, cyanosis. 3+ lower extremity edema bilaterally. No calf tenderness. Neuro: Cranial nerves 2 through 12 intact grossly. No focal neurological deficit. Speech is normal. Skin: No rashes. Normal skin turgor. Psych: Mood is okay. Affect is full. Insight and judgment are fair. Laboratory Data: Sodium 132, potassium 4.6, chloride 102, CO2 22, BUN 37, creatinine 1.49, glucose 169, calcium 8.7, magnesium 1.4. Troponin 0.05. BNP is 2126. Procalcitonin 0.05. WBC 9, H and H 11.7 and 35.3, platelets 259, neutrophils 89%. INR 1.06. ABG; pH 7.3, pCO2 35.7, pO2 75.3, bicarb 20.6. Chest x-ray personally reviewed, shows moderate bilateral pulmonary opacities probably represent mild pulmonary edema, pneumonia, or pneumonitis superimposed over pulmonary fibrosis. Assessment And Plan: An 83-year-old female with: 1. Acute exacerbation of pulmonary fibrosis. 2. Acute on chronic respiratory failure 3. Pulmonary hypertension. 4. Tricuspid regurgitation. 5. Gastroesophageal reflux disease. 6. Mixed hyperlipidemia. 7. Major depressive disorder. 8. Anemia NC/NC. 9. Acute congestive heart failure exacerbation. BNP is elevated. Chest x- ray shows edema. We will continue with congestive heart failure guidelines, beta-jaye. No LUPE inhibitor due to acute kidney injury. We will continue with IV Lasix. We will obtain echocardiogram and consult Cardiology. 10. Acute kidney injury. We will monitor creatinine and gentle diuresis. 11. Gastrointestinal and deep venous thrombosis prophylaxis with PPI and Lovenox renally dosed. Plan: Admit the patient to Med/Surg, place as inpatient. We will continue with nebulizer treatments. EDIS Voice ID: [id number] MTDD
[2018-01-15] MEDS ORDERED: METOPROLOL TAR 50 MG TAB PO SCH (21:00)
[2018-01-15] MEDS: ENOXAPARIN 30 MG/0.3 ML SQ SCH (21:36)
[2018-01-15 21:51] VITALS: BMI 30.7
--- NOTE | 2018-01-15 22:38 | EKG ---
Test Date: 2018-01-15 Test Time: 17:14:46 Last Putter Away: CHUCK MEASUREMENT RESULTS: Intervals: Rate: 83 OH: 156 QRSD: 78 QT: 384 QTc: 451 Perry: P: 30 OH: 156 QRS: -52 T: 85 INTERPRETIVE STATEMENTS: Normal sinus rhythm Possible Left atrial enlargement Left axis deviation Possible Anterior infarct, age undetermined Abnormal ECG Compared to ECG 08/16/2017 15:27:09 Sinus tachycardia no longer present ST (T wave) deviation no longer present Electronically Signed On 01-15-18 22:38:17 CDT by Mark Garcia
[2018-01-16 04:15] LABS: Absolute Lymphocytes (CBC) 1.4 K/uL (0.7-4.9); Absolute Monocytes 0.7 K/uL (0.1-1.3); Absolute Neutrophil 6.7 K/uL (1.8-8.0); Basophils % 0.3 % (0-1.3); Eosinophils % 1.7 % (0-4.4); Hematocrit 34.5 % (36.0-45.0); Lymphocytes % 15.8 % (15.3-44.8); MCH 30.7 pg (27.0-35.0); MPV 8.2 fL (7.6-11.3); Monocytes % 7.4 % (3.3-12.3); RBC Red Blood Cell Count 3.67 M/uL (3.86-4.86)
[2018-01-16 04:29] LABS: Albumin 3.4 g/dL (3.2-5.5); Bilirubin Total 0.6 mg/dL (0.3-1.2); Potassium 5.1 mEq/L (3.6-5.0); Protein, Total 5.8 g/dL (6.0-8.3)
[2018-01-16 05:47] LABS: Magnesium 1.7 mg/dL (1.8-2.5)
[2018-01-16] MEDS ORDERED: MAGNESIUM SULFATE 1 gm IVPB 1 GM/100 ML BAG IV ONE (06:00)
[2018-01-16 08:27] VITALS: O2SAT 94
[2018-01-16] MEDS ORDERED: CETIRIZINE HCL 5 MG TABLET PO SCH (09:00)
[2018-01-16] MEDS ORDERED: CITALOPRAM 10 MG TABLET PO SCH (09:00)
[2018-01-16] MEDS ORDERED: FUROSEMIDE 40 MG/4 ML VIAL IV SCH (09:00)
[2018-01-16] MEDS ORDERED: predniSONE 10 MG TAB PO SCH (09:00)
[2018-01-16] MEDS ORDERED: BIMATOPROST OPHTH DROPS/2.5 ML BTL OPTH SCH (09:00)
[2018-01-16] MEDS ORDERED: FERROUS SULFATE 325 MG TAB PO SCH (09:00)
[2018-01-16] MEDS ORDERED: HOME MED 1 EA UNK (Brimonidine Tartrate/Timolol [Combigan 0.2%-0.5% Eye Drops] 1 DROP) EACH EYE SCH (09:00)
[2018-01-16] MEDS ORDERED: SPIRONOLACTONE 25 MG TABLET PO SCH (09:00)
[2018-01-16] MEDS ORDERED: ASPIRIN EC 325 MG TABLET PO SCH (09:00)
[2018-01-16] MEDS ORDERED: METOPROLOL XL 25 MG TAB PO SCH (09:00)
[2018-01-16] MEDS: ENOXAPARIN 30 MG/0.3 ML SQ SCH (10:14)
[2018-01-16] MEDS: SILDENAFIL CITRATE 20 MG TABLET PO SCH ×2 (10:58→13:45)
[2018-01-16 11:01] VITALS: BP 132/69
--- NOTE | 2018-01-16 11:49 | ECHO ---
HEIGHT: 5 ft 2 in WEIGHT: 167 lb 11.2 oz DATE OF STUDY: 01/16/[address]: Zay Melchor MD 2-DIMENSIONAL: YES M.MODE: YES DOPPLER: YES COLOR FLOW: YES TDS: PORTABLE: DEFINITY: BUBBLE STUDY: DIAGNOSIS: CONGESTIVE HEART FAILURE CARDIAC HISTORY: CATHERIZATION: NO SURGERY: NO PROSTHETIC VALVE: NO PACEMAKER: NO MEASUREMENTS (cm) DIASTOLIC (NORMALS) SYSTOLIC (NORMALS) IVSd 1.0 (0.6-1.2) LVIDs 1.6 (2.0-3.5) LVEF 83% LVIDd 3.2 (3.5-5.7) %FS 50% LVPWd 1.0 (0.6-1.2) Ao Diam 2.6 (2.0-3.7) 2 DIMENSIONAL ASSESSMENT: RIGHT ATRIUM: NORMAL LEFT ATRIUM: NORMAL RIGHT VENTRICLE: NORMAL LEFT VENTRICLE: NORMAL TRICUSPID VALVE: NORMAL MITRAL VALVE: NORMAL PULMONIC VALVE: NORMAL AORTIC VALVE: NORMAL PERICARDIAL EFFUSION: NONE AORTIC ROOT: NORMAL LEFT VENTRICULAR WALL MOTION: DIASTOLIC DYSFUNCTION. DOPPLER/COLOR FLOW: MODERATE TRICUSPID REGURGITATION. SEVERE PULMONARY HYPERTENSION. RIGHT VENTRICULAR SYSTOLIC PRESSURE 91 mmHg COMMENTS: SEVERE PULMONARY HYPERTENSION. RIGHT VENTRICULAR SYSTOLIC PRESSURE 91 mmHg. DIASTOLIC DYSFUNCTION. NORMAL EJECTION FRACTION. TECHNOLOGIST: SANIYA PEREZ
--- NOTE | 2018-01-16 12:26 | RAD REPORT ---
EXAM DESCRIPTION: RAD - Chest Single View - 01/16/2018 11:30 am CLINICAL HISTORY: Shortness of breath COMPARISON: January 15 chest film TECHNIQUE: AP portable chest image was obtained 1118 hours . FINDINGS: Lungs are underinflated. Interstitial markings remain prominent. Alveolar opacification se en in the mid and lower lung eastman have partially cleared. Fullness of the right hilum and suprahila r region is stable. This is believed to be summation of tortuous vascularity rather than mass. No pne umothorax or large pleural effusion. No acute bone finding. Chronic right shoulder degenerative lopez e noted. No acute aortic findings suspected. IMPRESSION: Bilateral alveolar edema or infiltrate pattern showing improvement from January 15. No new or progressive finding.
[2018-01-16 12:37] VITALS: TEMP 97.2
[2018-01-16] MEDS ORDERED: SOD POLYSTYREN SUL 15 GM/60 ML UCUP PO ONE (13:41)
--- NOTE | 2018-01-16 16:25 | DS ---
Date of Discharge: 01/16/2018 Consultants: Dr. Pierce with Pulmonology, Dr. Garcia with Cardiology. Admitting Diagnoses: 1.Acute congestive heart failure exacerbation, diastolic dysfunction, improved. 2.Acute exacerbation of pulmonary fibrosis. 3.Hypoxia. 4.Hypertension. 5.Tricuspid regurgitation. 6.Gastroesophageal reflux disease. 7.Mixed hyperlipidemia. 8.Major depressive disorder. 9.Anemia. 10.Acute kidney injury. Discharge Diagnoses: 1.Acute congestive heart failure exacerbation, diastolic dysfunction, ejection fraction of 83%. 2.Severe pulmonary hypertension. 3.Hypoxia, improved. 4.Acute exacerbation of pulmonary fibrosis, improved. 5.Acute on chronic respiratory distress. The patient is on 3 L of oxygen at home. 6.Tricuspid regurgitation. 7.Gastroesophageal reflux disease without esophagitis. 8.Mixed hyperlipidemia. 9.Major depressive disorder. 10.Hypomagnesemia, corrected. 11.Anemia, normocytic normochromic. 12.Acute kidney injury. Hospital Course: The patient is an 83-year-old female with multiple medical conditions including mod erate idiopathic pulmonary fibrosis, on oxygen 3 L 04/03, pulmonary hypertension, tricuspid regurgitat ion, hyperlipidemia, comes in with shortness of breath and generalized swelling and generalized weakn ess. The patient had been eating canned soups and snacks like potato chips that had significant amou nt of added sodium. The patient had gained approximately 10 pounds and had significant lower extremi ty swelling. The patient was found to have an elevated BNP of 2000. She was hypoxic at 88% and had a mild troponin leak of 0.05. No chest pain. Her electrolytes showed low magnesium, which was repla elliot. Her creatinine was slightly elevated at 1.49. She was given Lasix, started on CHF guidelines. The patient diuresed well, had improvement in her condition. The patient was saturating well on her home level of oxygen. She was seen by Dr. Garcia and Dr. Patricia of Cardiology. Echocardiogram was done, which showed EF of 84% with severe pulmonary hypertension. The patient was seen by Dr. Lorelei mancia and the patient was cleared for discharge from his standpoint. The patient was then able to ambul ate well without any difficulties using her walker. The patient does not require any residential facility or inpatient physical therapy. The patient was then cleared for discharge. Her chest x-ra y showed improvement in the edema pattern. Discharge Condition: Stable. Activity: Fall precautions. Diet: Low-sodium fluid-restricted diet. Followup: Follow up with primary care physician in 1-2 days. Follow up with upholstery technician, Dr. Roberto johnson in 2-3 days. Follow up with greenhouse worker, Dr. Patricia in 2 weeks. Return to the ER for worseni ng condition. Medications: As per the medication reconciliation list. Physical Examination: General: Awake, alert, oriented x3. No acute distress. CV: S1, S2. No murmurs. Respiratory: Moving air well bilaterally. No wheezing. Abdomen: Soft, nontender, and nondistended. Positive bowel sounds. Extremities: No clubbing, cyanosis. Trace pedal edema. Neurologic: Nonfocal. Total time spent discharging the patient was 37 minutes. /RODO Voice ID: [id number] Report ID: [id number]
[2018-01-16] MEDS ORDERED: ATORVASTATIN 40 MG TAB PO SCH (21:00)
[2018-01-17] MEDS ORDERED: PANTOPRAZOLE 40MG TABLET PO SCH (06:30)
--- NOTE | 2018-01-18 02:36 | CON ---
Date of Consultation: 01/18/2018 Reason For Consultation: Congestive heart failure. History Of Present Illness: Ms. Matias is an 83-year-old woman, who has severe pulmonary hypertensio n more than 70 mm of right ventricular systolic pressure as of April 2017 with a normal ejection fraction, decreased left ventricular compliance consistent with chronic diastolic congestive heart fa ilure. Has a history of hypertension, anxiety, dyslipidemia, COPD, gastroesophageal reflux disease, and anemia. She came in with shortness of breath, edema, and congestive heart failure by x-ray. Allergies: SHE IS ALLERGIC TO SULFA. Review of Systems: Negative. Social History: Negative. Family History: Negative. Medications: Zocor, Viagra, Aldactone, metoprolol, and inhalers. Past Medical History: As stated above. Physical Examination: Vital Signs: Stable. She was afebrile. HEENT: Exam negative. Neck: Supple. No bruit, lymphadenopathy, JVD, or thyromegaly. Chest: Reveals some rales at the bases. Cardiac: Exam revealed a regular rhythm and rate with a tricuspid regurgitation and murmur. No gall ops or rubs. Abdomen: Benign. Extremities: Revealed trace edema. Diagnostic Data: Include a creatinine of 1.4. Her magnesium was 1.4. Her BNP was 2126. Her tropon in was 0.05. Chest x-ray showed a combination of pulmonary fibrosis and CHF, possible pneumonitis, p ossible pneumonia. In August of 2017, stress test was negative. Impression And Plan: 1.Acute exacerbation of chronic diastolic congestive heart failure. 2.Severe pulmonary fibrosis. A repeat echocardiogram is pending. 3.Moderate renal insufficiency. 4.Hypomagnesemia. 5.Elevated BNP and troponin secondary to pulmonary hypertension and congestive heart failure. Her o ther problems include dyslipidemia and hypertension, chronic obstructive pulmonary disease, anxiety, gastroesophageal reflux, anemia, this seemed to be stable. She is on Viagra 20 mg 3 times a day for her pulmonary hypertension. As her right ventricular systolic pressure has worsened, so decreasing t hat may not be a bad idea. I believe Dr. Pierce is consulted. The patient is stable enough certai nly from a symptom standpoint and oxygenation standpoint that she can go home. She is on home oxygen . I will see her in the office soon. SERVANDO/RODO Voice ID: [id number] Report ID: [id number]
== END 2018-01-16 16:18 | disposition home or self-care (01) | DRG 292 ==
LOC: ER 15:45 → ERHOLD 18:09 → 4TH 19:55
PROVIDERS: ADMIT Family Medicine; ATTEND Family Medicine
DX: I11.0 Hypertensive heart disease with heart failure (principal); N17.9 Acute kidney failure, unspecified; I50.33 Acute on chronic diastolic (congestive) heart failure; R06.03 Acute respiratory distress; R09.02 Hypoxemia; I27.20 Pulmonary hypertension, unspecified; J84.10 Pulmonary fibrosis, unspecified; I07.1 Rheumatic tricuspid insufficiency; K21.9 Gastro-esophageal reflux disease without esophagitis; E78.2 Mixed hyperlipidemia; F32.9 Major depressive disorder, single episode, unspecified; E83.42 Hypomagnesemia; D64.9 Anemia, unspecified
CPT/HCPCS: 36415; 51702; 71045; 80048; 80053; 80076; 82550; 82553; 82805; 83735; 83880; 84145; 84484; 85025; 85610; 85730; 87040; 93005; 93306; 94760; 96365; 96366; 96375; 97163; 99285; J1650; J3475; J7512

== ENCOUNTER 2018-04-07 14:01 | Observation (INO) | payer OTHER ==
--- OUTSIDE RECORDS SUMMARY | 2018-04-07 14:03 | XMS REPORT ---
:1935 Author Organization [employer] Care Team Providers Name Role Phone Mccarty, Na Provider Role Unavailable Allergies, Adverse Reactions, Alerts Substance Reaction Event Type Bactrim DS Info Not Available Drug Allergy Problems Problem Type Condition Code Onset Dates Condition Status Assessment Pernicious anemia D51.0 Active Problem Atopic dermatitis L20.9 Active Assessment Fatigue, unspecified type R53.83 Active Problem Mixed hyperlipidemia E78.2 Active Assessment Urinary tract infection without N39.0 Active hematuria, site unspecified Problem Spondylosis M47.9 Active Problem Chronic fatigue R53.82 Active Problem 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19 Active Problem Hemorrhoids K64.9 Active Problem Hypertension I10 Active Problem Allergic rhinitis J30.9 Active Problem Iron deficiency anemia due to D50.8 Active dietary causes Problem Carotid occlusion, 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 Active Problem Pulmonary fibrosis J84.10 Active Problem At risk for falls Z91.81 Active Medications Medication Code Code Instructions Start End Status Dosage System Date Date Coreg [facility] 95060217905 6.25 MG Orally Active 1tablet twice a day Nasacort [facility] 60482977365 55 MCG/ACT Active 1 puff in Allergy 24HR Nasally Once a each nostril day Celexa [facility] 72588276116 20 MG Orally Active 1 tablet Once a day Diflucan [facility] 69312602755 150 MG Orally Active 1 tablet Augmentin [facility] 42786032922 500-125 MG December 13December 20, Active 1 tablet Orally every 12 2018 2018 hrs Omeprazole [facility] 17208783157 20 MG Orally Active 1 capsule Once a day Simvastatin ND 45145017164 80 MG Orally Active 1 tablet in Once a day the evening Aspir-81 [facility] 47843359887 81 MG Orally Active 1 tablet Once a day Nystatin [facility] 37152927970 009805 UNIT/GM Active 1 application Externally to affected every 8 hrs area Ventolin HFA [facility] 42127264095 90 MCG/ACT Active 2 puffs as Inhalation needed every 6 hrs Ferrous [facility] 96379024357 325 (65 Fe) MG Active 1 tablet Sulfate Orally twice a day Ventolin HFA [facility] 76039544000 90 Active INHALE TWO PUFFS BY MOUTH FOUR TIMES A DAY Xanax [facility] 99553682035 0.25 MG Orally Active 1 tablet once a day Zyrtec Allergy [facility] 08781052157 10 MG Orally Active 1 tablet Once a day Breo Ellipta [facility] 41169792496 100-25 MCG/INH Active 1 puff Inhalation Once a day Results No Known Results Summary Purpose eClinicalWorks Submission
--- OUTSIDE RECORDS SUMMARY | 2018-04-07 14:03 | XMS REPORT ---
[...] Start End Status Dosage System Date Date [facility] 44546240276 81 MG Orally Active 1 tablet Once a day Nasacort [facility] 17551815940 55 MCG/ACT Active 1 puff in Allergy 24HR Nasally Once a each nostril day Breo Ellipta [facility] 26379709636 100-25 MCG/INH Active 1 puff Inhalation Once a day Omeprazole [facility] 18626436568 20 MG Orally Active 1 capsule Once a day Xanax [facility] [address]-81 0.25 MG Orally Active 1 tablet once a day Celexa [facility] 40162765009 20 MG Orally Active 1 tablet Once a day Zyrtec Allergy [facility] 46625059675 10 MG Orally Active 1 tablet Once a day Ventolin HFA [facility] [address]-68 90 MCG/ACT Active 2 puffs as Inhalation needed every 6 hrs Nystatin [facility] [address]-47 760647 UNIT/GM Active 1 application Externally to affected every 8 hrs area Ferrous [facility] [address]-19 325 (65 Fe) MG Active 1 tablet Sulfate Orally twice a day Simvastatin [facility] 41740419995 80 MG Orally Active 1 tablet in Once a day the evening Coreg [facility] [address]-30 6.25 MG Orally Active 1tablet twice a day Diflucan [facility] 91888789068 150 MG Orally Active 1 tablet Results No Known Results Summary Purpose [employer]ClinicalWorks Submission
--- OUTSIDE RECORDS SUMMARY | 2018-04-07 14:03 | XMS REPORT ---
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 Active Assessment Mixed hyperlipidemia E78.2 Active Assessment Pulmonary fibrosis J84.10 Active Assessment Pulmonary hypertension I27.20 Active Problem Atopic dermatitis L20.9 Active Assessment Iron deficiency anemia due to D50.8 Active dietary causes Problem Mixed hyperlipidemia E78.2 Active Assessment Chronic fatigue R53.82 Active Problem Spondylosis M47.9 Active Problem Chronic fatigue [...] Start End Status Dosage System Date Date Ventolin HFA [facility] 64766166409 90 MCG/ACT Active 2 puffs as Inhalation needed every 6 hrs Xanax [facility] 96419253171 0.25 MG Orally Active 1 tablet once a day Omeprazole ND 25471217855 20 MG Orally Active 1 capsule Once a day Diflucan ND 69778587009 150 MG Orally Active 1 tablet Nystatin ND 83129060615 614267 UNIT/GM Active 1 application Externally to affected every 8 hrs area Coreg [facility] 75447816231 6.25 MG Orally Active 1tablet twice a day Zyrtec Allergy [facility] 81065194524 10 MG Orally Active 1 tablet Once a day Aspir-81 [facility] 71384474158 81 MG Orally Active 1 tablet Once a day Ventolin HFA [facility] 58620335342 90 Active INHALE TWO PUFFS BY MOUTH FOUR TIMES A DAY Celexa [facility] 37381682396 20 MG Orally Active 1 tablet Once a day Nasacort [facility] 61271793926 55 MCG/ACT Active 1 puff in Allergy 24HR Nasally Once a each nostril day Ferrous [facility] 35653593030 325 (65 Fe) MG Active 1 tablet Sulfate Orally twice a day Breo Ellipta [facility] 85648241605 100-25 MCG/INH Active 1 puff Inhalation Once a day Simvastatin [facility] 86136715345 80 MG Orally Active 1 tablet in Once a day the evening Results Name Result Date Reference Range Unit Abnormality Flag B12 VITAMIN CBC W/AUTO DIFF Summary Purpose eClinicalWorks Submission
--- OUTSIDE RECORDS SUMMARY | 2018-04-07 14:03 | XMS REPORT | Clinical Summary ---
:1935 Author Organization [facility] Address [address] [place] [address] Care Team Providers Name Role Phone Hedy [...] Ancillary Orders Radiology Mert Malhotra MD after 04/06/2017 Family History Medical History Relation Name Comments [...] 03/12/2018 Procedures Procedure Name Priority Date/Time Associated Comments Diagnosis ESTIMATED GFR Routine 06/06/2017 5:40 Results for this AM CDT procedure are in the results section. HC COMPLETE BLD COUNT Routine 06/06/2017 5:40 Results for this W/AUTO DIFF AM CDT procedure are in the results section. BASIC METABOLIC PANEL Routine 06/06/2017 5:40 Results for this AM CDT procedure are in the results section. AFB CULTURE Timed 06/05/2017 10:22 Lymph nodes Results for this AM CDT enlarged procedure are in the results section. FUNGUS CULTURE Timed 06/05/2017 10:22 Lymph nodes Results for this AM CDT enlarged procedure are in the results section. XR CHEST 1 VW STAT 06/05/2017 10:18 Results for this PORTABLE AM CDT procedure are in the results section. AFB STAIN Timed 06/05/2017 9:22 Results for this AM CDT procedure are in the results section. GRAM STAIN Timed 06/05/2017 9:22 Results for this AM CDT procedure are in the results section. FUNGUS SMEAR Timed 06/05/2017 9:22 Results for this AM CDT procedure are in the results section. AEROBIC CULTURE Timed 06/05/2017 9:22 Lymph nodes Results for this AM CDT enlarged procedure are in the results section. ANAEROBIC CULTURE Timed 06/05/2017 9:22 Lymph nodes Results for this AM CDT enlarged procedure are in the results section. CYTOLOGY Routine 06/05/2017 8:40 Results for this (NON-GYNECOLOGICAL) AM CDT procedure are in REQUEST the results section. CYTOLOGY Routine 06/05/2017 8:40 Results for this (NON-GYNECOLOGICAL) AM CDT procedure are in REQUEST the results section. FLOW CYTOMETRY Routine 06/05/2017 8:40 Results for this EVALUATION AM CDT procedure are in the results section. OH AN ELECTIVE Routine 06/05/2017 8:31 ENDOTRACHEAL AIRWAY AM CDT Procedure Note - Priyanka Vargas MD - 06/05/2017 8:30 AM CDT Airway Performed by: RPIYANKA VARGAS Authorized by: PRIYANKA VARGAS Location: [place] Urgency: Elective Difficult Airway: No Anesthesiologist: PRIYANKA VARGAS Resident/AGRICULTURAL APPRAISER: VITO QUINONES Preoxygenated with 100% O2: Yes [...] after LOLr and prior to Mask ventilation TYPE AND SCREEN STAT 06/05/2017 6:40 AM CDT TYPE AND SCREEN Routine 05/09/2017 4:00 PM CDT ESTIMATED GFR Routine 05/09/2017 4:00 PM CDT PARTIAL THROMBOPLASTIN TIME Routine 05/09/2017 4:00 PM CDT Results for this (PTT) procedure are in the results section. HC COMPLETE BLD COUNT W/AUTO Routine 05/09/2017 4:00 PM CDT Results for this DIFF procedure are in the results section. PROTHROMBIN TIME WITH INR Routine 05/09/2017 4:00 PM CDT COMPREHENSIVE METABOLIC Routine 05/09/2017 4:00 PM CDT Results for this PANEL procedure are in the results section. CT CHEST EXTERNAL STUDY Routine 05/02/2017 1:[address] CHEST EXTERNAL STUDY Routine 04/25/2017 10:07 AM CDT after 04/06/2017 Results Estimated GFR (06/06/2017 5:40 AM)Only the most recent of2 resultswithin the time period is included. GFR Non Af Amer 68 mL/min/1.73 m2 [facility] DEPARTMENT OF PATHOLOGY AND GENOMIC MEDICINE GFR Af Amer 83 mL/min/1.73 m2 [facility] DEPARTMENT OF Comment: PATHOLOGY AND GENOMIC Chronic kidney disease: <60 mL/min/1.73m2 MEDICINE Kidney failure: <15 mL/min/1.73m2 The estimated GFR is calculated from the IDMS-traceable Modification of Diet in Renal Disease Equation. The accuracy of the calculation is poor when the creatinine is normal. Calculated values >90 mL/min/1.73m2 are not reported. This equation has not been validated in children (<18 years), women, the elderly (>70 years), or ethnic groups other than Caucasians and Americans. Specimen Plasma specimen Performing Organization Address City/State/Zipcode Phone Number [facility] DEPARTMENT OF PATHOLOGY AND [address] [place], [place] [address] [address] GENOMIC MEDICINE CBC with platelet and differential (06/06/2017 5:40 AM)Only the most recent of2 resultswithin the time period is included. WBC 7.58 4.50 - 11.00 k/uL [facility] DEPARTMENT OF PATHOLOGY AND GENOMIC MEDICINE RBC 3.61 (L) 4.20 - 5.50 m/uL [facility] DEPARTMENT OF PATHOLOGY AND GENOMIC MEDICINE HGB 10.6 (L) 12.0 - 16.0 g/dL [facility] DEPARTMENT OF PATHOLOGY AND GENOMIC MEDICINE HCT 32.3 (L) 37.0 - 47.0 % [facility] DEPARTMENT OF PATHOLOGY AND GENOMIC MEDICINE MCV 89.5 82.0 - 100.0 fL [facility] DEPARTMENT OF PATHOLOGY AND GENOMIC MEDICINE MCH 29.4 27.0 - 34.0 pg [facility] DEPARTMENT OF PATHOLOGY AND GENOMIC MEDICINE MCHC 32.8 31.0 - 37.0 g/dL [facility] DEPARTMENT OF PATHOLOGY AND GENOMIC MEDICINE RDW - SD 45.7 37.0 - 55.0 fL [facility] DEPARTMENT OF PATHOLOGY AND GENOMIC MEDICINE MPV 10.0 8.8 - 13.2 fL [facility] DEPARTMENT OF PATHOLOGY AND GENOMIC MEDICINE Platelet count 188 150 - 400 k/uL [facility] DEPARTMENT OF PATHOLOGY AND GENOMIC MEDICINE Nucleated RBC 0.00 /100 WBC [facility] DEPARTMENT OF PATHOLOGY AND GENOMIC MEDICINE Neutrophils 68.5 39.0 - 69.0 % [facility] DEPARTMENT OF PATHOLOGY AND GENOMIC MEDICINE Lymphocytes 20.6 (L) 25.0 - 45.0 % [facility] DEPARTMENT OF PATHOLOGY AND GENOMIC MEDICINE Monocytes 7.4 0.0 - 10.0 % [facility] DEPARTMENT OF PATHOLOGY AND GENOMIC MEDICINE Eosinophils 2.8 0.0 - 5.0 % [facility] DEPARTMENT OF PATHOLOGY AND GENOMIC MEDICINE Basophils 0.3 0.0 - 1.0 % [facility] DEPARTMENT OF PATHOLOGY AND GENOMIC MEDICINE Immature granulocytes 0.4Comment: 0.0 - 1.0 % [facility] DEPARTMENT OF "Immature PATHOLOGY AND GENOMIC granulocytes" MEDICINE (promyelocytes, myelocytes, metamyelocytes) Performing Organization Address City/State/Zipcode Phone Number [facility] DEPARTMENT OF PATHOLOGY AND [address] [place] [phone] [employer] MEDICINE Basic metabolic panel (06/06/2017 5:40 AM) Sodium 130 (L) 135 - 148 mEq/L [facility] DEPARTMENT OF PATHOLOGY AND GENOMIC MEDICINE Potassium 4.0 3.5 - 5.0 mEq/L [facility] DEPARTMENT OF PATHOLOGY AND GENOMIC MEDICINE Chloride 91 (L) 98 - 112 mEq/L [facility] DEPARTMENT OF PATHOLOGY AND GENOMIC MEDICINE CO2 25 24 - 31 mEq/L [facility] DEPARTMENT OF PATHOLOGY AND GENOMIC MEDICINE Anion gap 14 7 - 15 mEq/L [facility] DEPARTMENT OF PATHOLOGY Comment: AND [facility] Starting from November , anion gap calculation no longer incorporates potassium. Please note the change. BUN 10 8 - 23 mg/dL [facility] DEPARTMENT OF PATHOLOGY AND GENOMIC MEDICINE Creatinine 0.8 0.5 - 0.9 mg/dL [facility] DEPARTMENT OF PATHOLOGY AND GENOMIC MEDICINE Glucose 92 65 - 99 mg/dL [facility] DEPARTMENT OF PATHOLOGY AND GENOMIC MEDICINE Calcium 9.1 8.8 - 10.2 mg/dL [facility] DEPARTMENT OF PATHOLOGY AND GENOMIC MEDICINE Specimen Plasma specimen Performing Organization Address City/[facility]/[employer] Phone Number [facility] DEPARTMENT OF PATHOLOGY AND [address] [place] [address] AFB culture (06/05/2017 10:22 AM) AFB culture isolate No growth after 6 weeks of incubation. [facility] DEPARTMENT OF PATHOLOGY Comment: AND [employer] [facility] Specimen Information Specimen Source: Biopsy Specimen Site: Lymph node , 4Right FNA Specimen Biopsy - Other Performing Organization Address City/[facility]/[employer] Phone Number [facility] DEPARTMENT OF PATHOLOGY AND [address] [place] [address] Fungus culture (06/05/2017 10:22 AM) Fungus culture isolate No growth after 4 weeks of incubation. [facility] DEPARTMENT OF Comment: PATHOLOGY AND GENOMIC Specimen Information MEDICINE Specimen Source: Biopsy Specimen Site: Lymph node , 4Right FNA Specimen Biopsy - Other Performing Organization Address City/[facility]/[employer] Phone Number [facility] DEPARTMENT OF PATHOLOGY AND [address] [place] [address] GENOMIC [facility] XR Chest 1 Vw Portable (06/05/2017 10:18 AM) Narrative Performed At EXAMINATION:XR CHEST 1 VW PORTABLE [facility] CLINICAL HISTORY:SHORTNESS OF BREATH COMPARISON:None. IMPRESSION: Single frontal view reveals a normal cardiomediastinal silhouette, apart from arch calcifications. Pulmonary vasculature is prominent with diffuse patchy airspace opacities concerning for multilobar pneumonia. The remainder of the examination is unremarkable, apart from degenerative changes of the shoulders. [facility]-[id number] Procedure Note Interface, Radiology Results Incoming - [...] apart from degenerative changes of the shoulders. [facility]-[id number] Performing Organization Address City/[facility]/Zipcode Phone Number [address] [address] Fungus smear (06/05/2017 9:22 AM) Fungus smear No fungi observed. [facility] DEPARTMENT OF PATHOLOGY Comment: AND GENOMIC MEDICINE Specimen Information Specimen Source: Biopsy Specimen Site: Lymph node , 4Right FNA Specimen Biopsy Performing Organization Address [facility]/[employer] Phone Number [facility] DEPARTMENT OF PATHOLOGY AND [address] [place] [address] GENOMIC MEDICINE Aerobic culture (06/05/2017 9:22 AM) Aerobic culture isolate No growth after 3 days. [facility] DEPARTMENT OF Comment: PATHOLOGY AND GENOMIC Specimen Information MEDICINE Specimen Source: Biopsy Specimen Site: Lymph node , 4Right FNA Specimen Biopsy - Other Performing Organization Address [facility]/[employer] Phone Number [facility] DEPARTMENT OF PATHOLOGY AND [address] [place] [address] GENOMIC MEDICINE Gram stain (06/05/2017 9:22 AM) Gram stain isolate Few WBC's [facility] DEPARTMENT OF PATHOLOGY No organisms seen AND GENOMIC MEDICINE Comment: Specimen Information Specimen Source: Biopsy Specimen Site: Lymph node , 4Right FNA Specimen Biopsy Performing Organization Address [facility]/Zipcode Phone Number [facility] DEPARTMENT OF PATHOLOGY AND [address] [place], [place] [phone] GENOMIC MEDICINE AFB stain (06/05/2017 9:22 AM) AFB stain No acid fast bacilli (AFB) seen. [facility] DEPARTMENT OF PATHOLOGY AND Comment: GENOMIC MEDICINE Specimen Information Specimen Source: Biopsy Specimen Site: Lymph node , 4Right FNA Specimen Biopsy Performing Organization Address City/[facility]/[employer] Phone Number [facility] DEPARTMENT OF PATHOLOGY AND [address] [place] [address] Anaerobic culture (06/05/2017 9:22 AM) Anaerobic culture No anaerobic organisms isolated. [facility] DEPARTMENT OF isolate Comment: PATHOLOGY AND GENOMIC Specimen Information MEDICINE Specimen Source: Biopsy Specimen Site: Lymph node , 4Right FNA Specimen Biopsy - Other Performing Organization Address [facility]/[employer] Phone Number [facility] DEPARTMENT OF PATHOLOGY AND [address] [place] [address] GENOMIC [facility] Flow cytometry evaluation (06/05/2017 8:40 AM) [facility] DEPARTMENT OF PATHOLOGY AND GENOMIC MEDICINE Flow cytometry evaluation See link below for PDF [facility] DEPARTMENT OF Lab Report PATHOLOGY AND GENOMIC MEDICINE Performing Organization Address [facility]/[employer] Phone Number [facility] DEPARTMENT OF PATHOLOGY AND [address] [place] [address] GENOMIC [facility] Cytology (non-gynecological) request (06/05/2017 8:40 AM)Only the most recent of2 resultswithin the time period is included. [facility] DEPARTMENT OF PATHOLOGY AND GENOMIC MEDICINE Cytology See link below for PDF [facility] DEPARTMENT OF (non-gynecological) report Lab Report PATHOLOGY AND GENOMIC MEDICINE Performing Organization Address [facility] Number [facility] DEPARTMENT OF PATHOLOGY AND [address] [place] [address] GENOMIC MEDICINE Type and screen (06/05/2017 6:40 AM)Only the most recent of2 resultswithin the time period is included. ABO grouping O [facility] DEPARTMENT OF PATHOLOGY AND GENOMIC MEDICINE Rh type POS [facility] DEPARTMENT OF PATHOLOGY AND GENOMIC MEDICINE Antibody screen (gel) NEG [facility] DEPARTMENT OF PATHOLOGY AND GENOMIC MEDICINE Specimen Blood Performing Organization Address City/[facility]/Zipcode Phone Number [facility] DEPARTMENT OF PATHOLOGY AND [address] [place] [address] Partial thromboplastin time, activated (05/09/2017 4:00 PM) PTT 26.9 23.0 - 36.0 sec [facility] DEPARTMENT OF PATHOLOGY Comment: AND [facility] PTT therapeutic range for unfractionated heparin is 61.0-112.0 seconds which corresponds to Anti-Xa 0.3-0.7 U/ml. Specimen Blood Performing Organization Address City/[facility]/Zipcode Phone Number [facility] DEPARTMENT OF PATHOLOGY AND [address] [place] [address] [facility] Prothrombin time with INR (05/09/2017 4:00 PM) Prothrombin time 12.8 12.0 - 15.0 sec [facility] DEPARTMENT OF PATHOLOGY AND GENOMIC MEDICINE INR 1.0 [facility] DEPARTMENT OF Comment: PATHOLOGY AND GENOMIC The International Normalized Ratio (INR) is a therapeutic MEDICINE monitoring tool for patients who are stable on oral anticoagulant therapy. An INR of 2.0-3.0 is suggested for deep vein thrombosis/pulmonary embolism. Specimen Blood Performing Organization Address City/[facility]/[employer] Phone Number [facility] PATHOLOGY AND [address] [place] [address] [facility] Comprehensive metabolic panel (05/09/2017 4:00 PM) Sodium 140 135 - 148 mEq/L [facility] DEPARTMENT OF PATHOLOGY AND GENOMIC MEDICINE Potassium 5.0 3.5 - 5.0 mEq/L [facility] DEPARTMENT OF PATHOLOGY AND GENOMIC MEDICINE Chloride 101 98 - 112 mEq/L [facility] DEPARTMENT OF PATHOLOGY AND GENOMIC MEDICINE CO2 26 24 - 31 mEq/L [facility] DEPARTMENT OF PATHOLOGY AND GENOMIC MEDICINE Anion gap 13 7 - 15 mEq/L [facility] DEPARTMENT OF Comment: PATHOLOGY AND GENOMIC Starting from November , anion gap calculation MEDICINE no longer incorporates potassium. Please note the change. BUN 19 8 - 23 mg/dL [facility] DEPARTMENT OF PATHOLOGY AND GENOMIC MEDICINE Creatinine 1.1 (H) 0.5 - 0.9 mg/dL [facility] DEPARTMENT OF PATHOLOGY AND GENOMIC MEDICINE Glucose 106 (H) 65 - 99 mg/dL [facility] DEPARTMENT OF PATHOLOGY AND GENOMIC MEDICINE Calcium 9.7 8.8 - 10.2 mg/dL [facility] DEPARTMENT OF PATHOLOGY AND GENOMIC MEDICINE Protein 7.3 6.3 - 8.3 g/dL [facility] DEPARTMENT OF Comment: PATHOLOGY AND GENOMIC 4.6-7.0 g/dL MEDICINE 1 week 4.4-7.6 g/dL 7 months-1year5.1-7.3 g/dL 1-2 years5.6-7.5 g/dL >3 years6.0-8.0 g/dL 18-150 6.3-8.3 g/dL Albumin 3.6 3.5 - 5.0 g/dL [facility] DEPARTMENT OF PATHOLOGY AND GENOMIC MEDICINE A/G ratio 1.0 0.7 - 3.8 [facility] DEPARTMENT OF PATHOLOGY AND GENOMIC MEDICINE Alkaline phosphatase 66 35 - 104 U/L [facility] DEPARTMENT OF PATHOLOGY AND GENOMIC MEDICINE AST 29 10 - 35 U/L [facility] DEPARTMENT OF PATHOLOGY AND GENOMIC MEDICINE ALT 23 5 - 50 U/L [facility] DEPARTMENT OF PATHOLOGY AND GENOMIC MEDICINE Total bilirubin <0.2 0.0 - 1.2 mg/dL [facility] DEPARTMENT OF PATHOLOGY AND GENOMIC MEDICINE Specimen Plasma specimen Performing Organization Address City/State/[place] Phone Number [facility] DEPARTMENT OF PATHOLOGY AND [address] [place] [address] [facility] MEDICINE CT Chest External Study (05/02/2017 1:55 PM)Only the most recent of2 resultswithin the time period is included. Narrative Performed At This exam was not acquired at a [facility] facility and has not been [facility] interpreted by a [facility] Provider.The exam was imported into our imaging system for comparisons purposes. Performing Organization Address City/[facility]/[employer] Phone Number [facility] [address] [place] [address] after 04/06/2017 Insurance Payer Benefit Plan / Group Subscriber ID Type Phone Address [employer] [facility] xxxxxxxxx O
--- OUTSIDE RECORDS SUMMARY | 2018-04-07 14:04 | XMS REPORT ---
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 unspecified etiology Assessment Pulmonary fibrosis J84.10 Active Assessment Mixed hyperlipidemia E78.2 Active Assessment Anemia due to vitamin B12 D51.9 Active deficiency, unspecified B12 deficiency type Assessment Hypomagnesemia E83.42 Active Problem Atopic dermatitis L20.9 Active Assessment Acute on chronic diastolic I50.33 Active congestive heart failure Problem Mixed hyperlipidemia E78.2 Active Assessment Hospital discharge follow-up Z09 Active Problem Spondylosis M47.9 Active Problem Chronic [...] Start End Status Dosage System Date Date Lasix ND 32374727541 20 MG Orally January 20, Active 1 tablet Once a day 2017 Celexa ND 84401153198 20 MG Orally Active 1 tablet Once a day Zyrtec Allergy NDC 27028769202 10 MG Orally Active 1 tablet Once a day Nystatin [facility] 32041674822 559378 UNIT/GM Active 1 application Externally to affected every 8 hrs area Omeprazole [facility] 56949512945 20 MG Orally Active 1 capsule Once a day Aspir-81 [facility] 48233000265 81 MG Orally Active 1 tablet Once a day Ferrous [facility] 38082016071 325 (65 Fe) MG Active 1 tablet Sulfate Orally twice a day Ventolin HFA [facility] 78777556171 90 Active INHALE TWO PUFFS BY MOUTH FOUR TIMES A DAY Xanax [facility] 45591443672 0.25 MG Orally Active 1 tablet once a day Diflucan [facility] 60708044686 150 MG Orally Active 1 tablet Coreg [facility] 56504215651 6.25 MG Orally Active 1tablet twice a day Breo Ellipta [facility] 48245385980 100-25 MCG/INH Active 1 puff Inhalation Once a day Nasacort [facility] 09841468400 55 MCG/ACT Active 1 puff in Allergy 24HR Nasally Once a each nostril day Simvastatin [facility] 33468837408 80 MG Orally Active 1 tablet in Once a day the evening Ventolin HFA [facility] 30603550018 90 MCG/ACT Active 2 puffs as Inhalation needed every 6 hrs Results No Known Results Summary Purpose [employer] Submission
--- OUTSIDE RECORDS SUMMARY | 2018-04-07 14:04 | XMS REPORT ---
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 Problem Hospital discharge follow-up Z09 Active Problem Anxiety F41.9 Active Problem Anemia due to vitamin B12 D51.9 Active deficiency, unspecified B12 deficiency type Problem GERD (gastroesophageal reflux K21.9 Active disease) Problem Urinary tract infection N39.0 Active Problem Hypomagnesemia E83.42 Active Problem Pulmonary hypertension, moderate to I27.20 [...] Active Problem Pulmonary fibrosis J84.10 Active Problem Atopic dermatitis L20.9 Active Problem At risk for falls Z91.81 Active Problem Mixed hyperlipidemia E78.2 Active Medications No Known Medications Results No Known Results Summary Purpose [employer] Submission
[2018-04-07 16:06] LABS: Absolute Lymphocytes (CBC) 0.7 K/uL (0.7-4.9); Absolute Monocytes 0.3 K/uL (0.1-1.3); Absolute Neutrophil 5.6 K/uL (1.8-8.0); Basophils % 0.5 % (0-1.3); Eosinophils % 0.9 % (0-4.4); Hematocrit 37.4 % (36.0-45.0); MCH 29.5 pg (27.0-35.0); MCV 91.9 fL (80-100); MPV 8.7 fL (7.6-11.3); RBC Red Blood Cell Count 4.07 M/uL (3.86-4.86)
[2018-04-07 16:23] LABS: Albumin 3.3 g/dL (3.4-5.0); Bilirubin Direct 0.2 mg/dL (0-0.2); Bilirubin Total 0.4 mg/dL (0.2-1.0); Magnesium 1.5 mg/dL (1.8-2.4); Potassium 4.4 mmol/L (3.5-5.1); Protein, Total 6.4 g/dL (6.4-8.2)
[2018-04-07 16:36] LABS: Urine Blood NEGATIVE (NEG); Urine Glucose NEGATIVE (NEG); Urine Protein 2+ (NEG); Urine Specific Gravity 1.015 (1.005-1.030); Urine pH 5.5 (5.0-7.0)
[2018-04-07 16:38] LABS: Protime INR 1.03
[2018-04-07] MEDS ORDERED: NA CHLORIDE 0.9% 1,000 ML ONE (16:53)
[2018-04-07] MEDS ORDERED: MAGNESIUM SULFATE 1 gm IVPB 1 GM/100 ML BAG IV ONE (16:58)
--- NOTE | 2018-04-07 17:09 | RAD REPORT ---
EXAM DESCRIPTION: RAD - Chest Single View - 04/07/2018 4:42 pm CLINICAL HISTORY: Cough and congestion, shortness of breath COMPARISON: Portable chest January 16, 2018, CT chest August 2017, two view chest exam April 2017 TECHNIQUE: AP portable chest image was obtained 1629 hours . FINDINGS: Patient has very extensive chronic interstitial lung disease as well as low lung volumes. Lung parenchyma is not clearly different from 2017 imaging which is favored to be at or near baseline . Severity of disease can easily obscure early edema or infiltrate. . Cardiac silhouette is enlarged but stable. No upper lobe vascular engorgement. Right-side peritracheal and mediastinal mass density was shown on the CT study to be very pronounced and tortuous vasculature. No measurable pleural effus ion and no pneumothorax. No acute bone finding. Patient has chronic rotator cuff tear on the right an d probably on the left. No acute aortic findings suspected. IMPRESSION: Very extensive baseline interstitial lung disease. Early interstitial edema or infiltrat e is easily masked.
--- NOTE | 2018-04-07 17:12 | EDPHYS ---
Physician Documentation [facility] Name: Herlinda Matias Age: 83 yrs Sex: Female : 1935 Arrival Date: 04/07/2018 Time: 14:06 Bed 5 Private MD: Hedy Mccarty ED Physician Dereck Savage HPI: 04/07 16:34 This 83 yrs old Female presents to ER via Wheelchair with complaints of temo Weakness, Leg Swelling. 16:34 The patient presents to the emergency department with weakness of the entire body, temo generalized weakness. Onset: The symptoms/episode began/occurred 3 day(s) ago. Context: occurred at home. Associated signs and symptoms: Pertinent positives: weakness. Severity of symptoms: At their worst the symptoms were mild in the emergency department the symptoms are unchanged. Patient's baseline: Neuro: alert and fully oriented. The patient has experienced similar episodes in the past, a few times. Historical: - Allergies: 14:13 Sulfa (Sulfonamide Antibiotics); aa5 - Home Meds: 19:32 aspirin 325 mg Oral tab 1 tab once daily [Active]; citalopram 20 mg tab 1 tab once lp1 daily [Active]; ferrous sulfate 325 mg (65 mg iron) Oral tab three times a day [Active]; Keflex 500 mg Oral cap 1 cap daily [Active]; metoprolol tartrate 25 mg Oral tab 1 tab once daily [Active]; omeprazole 20 mg Oral cpDR 1 cap once daily [Active]; sildenafil 20 mg Oral tab 1 tab 3 times per day [Active]; simvastatin 80 mg Oral tab 80 mg daily [Active]; spironolactone 25 mg Oral tab 1 tab once daily [Active]; timolol maleate 0.5 % Opht solg 1 drop once daily [Active]; Ventolin HFA 90 mcg/actuation Nebulizer HFAA 2 puffs every 4 hours [Active]; Vitamin C 500 mg Oral tab every morning [Active]; Zyrtec 10 mg Oral tab 1 tab once daily [Active]; - PMHx: 14:13 Anxiety; pulmonary fibrosis; PULMONARY HYPERTENSION; aa5 - PSHx: 14:13 None; aa5 - Immunization history:: Adult Immunizations up to date. - Ebola Screening: : No symptoms or risks identified at this time. - Social history:: Smoking status: Patient/guardian denies using tobacco. - Family history:: not pertinent. ROS: 16:34 Constitutional: Negative for fever, chills, and weight loss, Eyes: Negative for injury, temo pain, redness, and discharge, ENT: Negative for injury, pain, and discharge, Neck: Negative for injury, pain, and swelling, Cardiovascular: Negative for chest pain, palpitations, and edema, Abdomen/GI: Negative for abdominal pain, nausea, vomiting, diarrhea, and constipation, Back: Negative for injury and pain, : Negative for injury, bleeding, discharge, and swelling, MS/Extremity: Negative for injury and deformity, Skin: Negative for injury, rash, and discoloration, Psych: Negative for depression, anxiety, suicide ideation, homicidal ideation, and hallucinations, Allergy/Immunology: Negative for hives, rash, and allergies, Endocrine: Negative for neck swelling, polydipsia, polyuria, polyphagia, and marked weight changes. 16:34 Respiratory: Positive for cough, shortness of breath, at rest. 16:34 Abdomen/GI: Negative for abdominal pain. 16:34 MS/extremity: Positive for swelling, of the right leg and left leg. Exam: 16:34 Constitutional: This is a well developed, well nourished patient who is awake, alert, temo and in no acute distress. Head/Face: Normocephalic, atraumatic. Eyes: Pupils equal round and reactive to light, extra-ocular motions intact. Lids and lashes normal. Conjunctiva and sclera are non-icteric and not injected. Cornea within normal limits. Periorbital areas with no swelling, redness, or edema. ENT: Nares patent. No nasal discharge, no septal abnormalities noted. Tympanic membranes are normal and external auditory canals are clear. Oropharynx with no redness, swelling, or masses, exudates, or evidence of obstruction, uvula midline. Mucous membranes moist. Neck: Trachea midline, no thyromegaly or masses palpated, and no cervical lymphadenopathy. Supple, full range of motion without nuchal rigidity, or vertebral point tenderness. No Meningismus. Chest/axilla: Normal chest wall appearance and motion. Nontender with no deformity. No lesions are appreciated. Cardiovascular: Regular rate and rhythm with a normal S1 and S2. No gallops, murmurs, or rubs. Normal PMI, no JVD. No pulse deficits. Abdomen/GI: Soft, non-tender, with normal bowel sounds. No distension or tympany. No guarding or rebound. No evidence of tenderness throughout. Back: No spinal tenderness. No costovertebral tenderness. Full range of motion. Female : Normal external genitalia. Skin: Warm, dry with normal turgor. Normal color with no rashes, no lesions, and no evidence of cellulitis. Neuro: Awake and alert, GCS 15, oriented to person, place, time, and situation. Cranial nerves II-XII grossly intact. Motor strength 5/5 in all extremities. Sensory grossly intact. Cerebellar exam normal. Normal gait. Psych: Awake, alert, with orientation to person, place and time. Behavior, mood, and affect are within normal limits. 16:34 Cardiovascular: Rate: normal, Rhythm: regular, Pulses: Pulses are 4+ in bilateral radial, brachial, femoral, popliteal, posterior tibial and and dorsalis pedis arteries.. Heart sounds: normal, Edema: 3+ edema to level of left midcalf, left ankle, right midcalf and right ankle, JVD: is not appreciated. 16:34 Respiratory: the patient does not display signs of respiratory distress, Respirations: normal, Breath sounds: rhonchi, that are mild, are scattered, Respiratory rate: 26 16:34 Musculoskeletal/extremity: ROM: full active range of motion, full passive range of motion, Circulation is intact in all extremities. Sensation intact. Compartment Syndrome exam of affected extremity: is normal. DVT Exam: no pain, no tenderness, negative Homans' sign noted on exam, no appreciated bluish discoloration, no erythema, no increased warmth, swelling. Vital Signs: 14:18 BP 99 / 79; Pulse 81; Resp 22 S; Temp 98.0(TE); Pulse Ox 80% on 3 lpm NC; Weight 74.39 aa5 kg (R); Height 5 ft. 2 in. (157.48 cm) (R); Pain 0/10; 14:23 Pulse Ox 83% on 3 lpm NC; aa5 14:30 Pulse Ox 90% on 3 lpm NC; aa5 15:03 BP 116 / 88; Pulse 84; Resp 23; Pulse Ox 98% on 3 lpm NC; dh3 15:49 Temp 97.5(O); dh3 16:03 BP 123 / 97; Pulse 87; Resp 26; Pulse Ox 98% on 3 lpm NC; dh3 19:33 BP 121 / 92; Pulse 87; Resp 24; Temp 97.7(O); Pulse Ox 96% on 3 lpm NC; lp1 20:28 BP 129 / 94; Pulse 89; Resp 22; Pulse Ox 97% on 3 lpm NC; lp1 20:54 BP 125 / 93; Pulse 87; Resp 22; Pulse Ox 98% on 3 lpm NC; lp1 14:18 Body Mass Index 30.00 (74.39 kg, 157.48 cm) aa5 14:30 After pt was placed in bed pt's O2 increased to 90% aa5 MDM: 14:30 Patient medically screened. [facility] 16:38 Data reviewed: vital signs, nurses notes, lab test result(s), EKG, radiologic studies, [facility] CT scan, plain films. 04/07 15:42 Order name: Basic Metabolic Panel; Complete Time: 16:32 [facility] 04/07 15:42 Order name: CBC with Diff; Complete Time: 16:32 [facility] 04/07 15:42 Order name: Ckmb; Complete Time: 16:32 [facility] 04/07 15:42 Order name: CPK; Complete Time: 16:32 [facility] 04/07 15:42 Order name: LFT's; Complete Time: 16:32 [facility] 04/07 15:42 Order name: Magnesium; Complete Time: 16:32 [facility] 04/07 15:42 Order name: NT PRO-BNP; Complete Time: 16:32 [facility] 04/07 15:42 Order name: PT-INR; Complete Time: 17:08 [facility] 04/07 15:42 Order name: Ptt, Activated; Complete Time: 17:08 [facility] 04/07 15:42 Order name: Troponin (emerg Dept Use Only); Complete Time: 17:08 [facility] 04/07 15:42 Order name: Lipase; Complete Time: 16:32 [facility] 04/07 15:42 Order name: Urine Culture [facility] 04/07 16:29 Order name: Urine Dipstick--Ancillary (enter results); Complete Time: 17:08 04/07 16:33 Order name: TSH [facility] 04/07 15:42 Order name: XRAY Chest (1 view); Complete Time: 17:15 [facility] 04/07 15:42 Order name: EKG; Complete Time: 15:42 [facility] 04/07 15:42 Order name: Cardiac monitoring; Complete Time: 16:11 [facility] 04/07 15:42 Order name: EKG - Nurse/Tech; Complete Time: 16:11 [facility] 04/07 15:42 Order name: IV Saline Lock; Complete Time: 16:11 [facility] 04/07 16:33 Order name: Blood Culture Adult (2) [facility] 04/07 17:03 Order name: Diet Heart Healthy; Complete Time: 17:03 [facility] 04/07 17:19 Order name: CONS Physician Consult [facility] 04/07 17:20 Order name: CONS Physician Consult [facility] 04/07 17:20 Order name: Echo with Doppler [facility] 04/07 15:42 Order name: Labs collected and sent; Complete Time: 16:11 [facility] 04/07 15:42 Order name: O2 Per Protocol; Complete Time: 16:11 [facility] 04/07 15:42 Order name: O2 Sat Monitoring; Complete Time: 16:11 [facility] 04/07 15:42 Order name: Urine Dipstick-Ancillary (obtain specimen); Complete Time: 16:10 [facility] Administered Medications: 16:58 Drug: Magnesium Sulfate 1 grams Route: IVPB; Infused Over: 1 hrs; Site: right forearm; jl7 17:20 Follow up: IV Pause: 04/07/2018 17:20; IV Pause Reason: Limited IV access/Medication jl7 interaction 18:15 Follow up: Response: No adverse reaction; IV Status: Completed infusion jl7 16:59 Drug: NS 0.9% 1000 ml Route: IV; Rate: 75 ml/hr; Site: right forearm; jl7 20:30 Follow up: IV Status: IV converted to saline lock lp1 17:25 Drug: Lasix 40 mg Route: IVP; Site: right forearm; jl7 18:00 Follow up: Response: No adverse reaction jl7 17:29 Drug: Xopenex 1.25 mg Route: Inhalation; jl7 18:00 Follow up: Response: No adverse reaction jl7 17:29 Drug: AtroVENT Aerosol 0.5 mg Route: Inhalation; jl7 18:00 Follow up: Response: No adverse reaction jl7 17:30 Drug: Rocephin - (cefTRIAXone) 1 grams Route: IVPB; Infused Over: 30 mins; Site: right jl7 forearm; 17:32 Follow up: Response: No adverse reaction; IV Status: Completed infusion jl7 17:33 Follow up: Response: No adverse reaction; IV Status: Completed infusion jl7 Disposition: 04/07/18 17:11 Hospitalization ordered by Valerio Leo for Observation. Preliminary diagnosis are Dyspnea, Cystitis, Cardiomegaly, Hypomagnesemia, Pulmonary fibrosis, unspecified. - Bed requested for Telemetry/MedSurg (Inpatient). - Status is Observation. lp1 - Condition is Fair. - Problem is new. - Symptoms have improved. UTI on Admission? Yes Signatures: Dispatcher [employer] EDMS VibhaMaryuri rg2 Dereck Savage MD MD cha Calderon, Audri, RN RN aa5 Larissa Gil RN RN lp1 Dominguez Fernandes PA PA jr8 Helio Young RN RN jl7 Corrections: (The following items were deleted from the chart) 20:26 17:11 Hospitalization Ordered by Valerio Leo DO for Observation. Preliminary rg2 diagnosis is Dyspnea; Cystitis; Cardiomegaly; Hypomagnesemia; Pulmonary fibrosis, unspecified. Bed requested for Telemetry/MedSurg (Inpatient). Status is Observation. Condition is Fair. Problem is new. Symptoms have improved. UTI on Admission? Yes. [facility] 21:00 20:26 04/07/2018 17:11 Hospitalization Ordered by Valerio Leo DO for Observation. lp1 Preliminary diagnosis is Dyspnea; Cystitis; Cardiomegaly; Hypomagnesemia; Pulmonary fibrosis, unspecified. Bed requested for Telemetry/MedSurg (Inpatient). Status is Observation. Condition is Fair. Problem is new. Symptoms have improved. UTI on Admission? Yes. rg2
--- NOTE | 2018-04-07 17:12 | ER ---
Nurse's Notes [facility] Name: Herlinda Matias Age: 83 yrs Sex: Female : 1935 Arrival Date: 04/07/2018 Time: 14:06 Bed 5 Private MD: Hedy Mccarty Diagnosis: Dyspnea;Cystitis;Cardiomegaly;Hypomagnesemia;Pulmonary fibrosis, unspecified Presentation: 04/07 14:15 Presenting complaint: Patient states: generalized weakness and radha leg swelling. Pt's aa5 daughter states "the doctor said to give her spironolactone 25mg twice a day instead of once a day on 04/05/18". Pt's daughter also reports pt completed Flagyl x 2 weeks for C-diff. Pt currently 80% 3 L NC, no respiratory distress noted. Transition of care: patient was not received from another setting of care. Onset of symptoms was March 2018. Risk Assessment: Do you want to hurt yourself or someone else? Patient reports no desire to harm self or others. Care prior to arrival: None. 14:15 Method Of Arrival: Wheelchair aa5 14:15 Acuity: LALITA 2 aa5 16:26 Initial Sepsis Screen: Does the patient meet any 2 criteria? No. Patient's initial jl7 sepsis screen is negative. Does the patient have a suspected source of infection? No. Patient's initial sepsis screen is negative. Historical: - Allergies: 14:13 Sulfa (Sulfonamide Antibiotics); aa5 - Home Meds: 19:32 aspirin 325 mg Oral tab 1 tab once daily [Active]; citalopram 20 mg tab 1 tab once lp1 daily [Active]; ferrous sulfate 325 mg (65 mg iron) Oral tab three times a day [Active]; Keflex 500 mg Oral cap 1 cap daily [Active]; metoprolol tartrate 25 mg Oral tab 1 tab once daily [Active]; omeprazole 20 mg Oral cpDR 1 cap once daily [Active]; sildenafil 20 mg Oral tab 1 tab 3 times per day [Active]; simvastatin 80 mg Oral tab 80 mg daily [Active]; spironolactone 25 mg Oral tab 1 tab once daily [Active]; timolol maleate 0.5 % Opht solg 1 drop once daily [Active]; Ventolin HFA 90 mcg/actuation Nebulizer HFAA 2 puffs every 4 hours [Active]; Vitamin C 500 mg Oral tab every morning [Active]; Zyrtec 10 mg Oral tab 1 tab once daily [Active]; - PMHx: 14:13 Anxiety; pulmonary fibrosis; PULMONARY HYPERTENSION; aa5 - PSHx: 14:13 None; aa5 - Immunization history:: Adult Immunizations up to date. - Ebola Screening: : No symptoms or risks identified at this time. - Social history:: Smoking status: Patient/guardian denies using tobacco. - Family history:: not pertinent. Screenin:30 Abuse screen: Denies threats or abuse. Denies injuries from another. Nutritional jl7 screening: No deficits noted. Tuberculosis screening: No symptoms or risk factors identified. Fall Risk No fall in past 12 months (0 pts). No secondary diagnosis (0 pts). IV access (20 points). Ambulatory Aid- Crutches/Cane/Walker (15 pts). Gait- Weak (10 pts.). Mental Status- Oriented to own ability (0 pts). Total Wang Fall Scale indicates High Risk Score (45 or more points). Fall prevention measures have been instituted. Side Rails Up X 2 Placed Close to Nursing Station Frequent Obs/Assessments Occuring Family Present and informed to notify staff if the need to leave the bedside As available patient and family educated on Fall Prevention Program and Strategies. Assessment: 15:30 General: Appears in no apparent distress. Behavior is calm, cooperative, appropriate jl7 for age. Pain: Denies pain. Neuro: Level of Consciousness is awake, alert, obeys commands, Oriented to person, place, time, situation. Cardiovascular: Heart tones present Murmur present Patient's skin is warm and dry. Respiratory: Airway is patent Respiratory effort is even, unlabored, Respiratory pattern is regular, symmetrical, Breath sounds with crackles in left posterior upper lobe, right posterior upper lobe, left posterior lower lobe, right posterior middle lobe and right posterior lower lobe. GI: No signs and/or symptoms were reported involving the gastrointestinal system. Patient currently denies diarrhea, nausea, vomiting. : Urine is cloudy, Denies burning with urination. EENT: No signs and/or symptoms were reported regarding the EENT system. Derm: Skin is pink, warm \\T\\ dry. Musculoskeletal: No signs and/or symptoms reported regarding the musculoskeletal system. 19:23 Reassessment: Pt changed per staging technician cabrera care performed and pt changed into clean ea brief. Tolerated well. 19:28 Reassessment: Patient is alert, oriented x 3, equal unlabored respirations, skin lp1 warm/dry/pink. aware of pending admission, daughter at bedside. Pain: Denies pain. Respiratory: Respiratory effort is even, Breath sounds are clear bilaterally. Derm: Skin is fragile, is thin, Skin is dry, Skin is normal. 20:28 Reassessment: Attempted to give report, management development specialist states room has not been assigned to lp1 nurse yet. 21:00 Reassessment: Patient is alert, oriented x 3, equal unlabored respirations, skin lp1 warm/dry/pink. Patient states feeling better. Vital Signs: 14:18 BP 99 / 79; Pulse 81; Resp 22 S; Temp 98.0(TE); Pulse Ox 80% on 3 lpm NC; Weight 74.39 aa5 kg (R); Height 5 ft. 2 in. (157.48 cm) (R); Pain 0/10; 14:23 Pulse Ox 83% on 3 lpm NC; aa5 14:30 Pulse Ox 90% on 3 lpm NC; aa5 15:03 BP 116 / 88; Pulse 84; Resp 23; Pulse Ox 98% on 3 lpm NC; dh3 15:49 Temp 97.5(O); dh3 16:03 BP 123 / 97; Pulse 87; Resp 26; Pulse Ox 98% on 3 lpm NC; dh3 19:33 BP 121 / 92; Pulse 87; Resp 24; Temp 97.7(O); Pulse Ox 96% on 3 lpm NC; lp1 20:28 BP 129 / 94; Pulse 89; Resp 22; Pulse Ox 97% on 3 lpm NC; lp1 20:54 BP 125 / 93; Pulse 87; Resp 22; Pulse Ox 98% on 3 lpm NC; lp1 14:18 Body Mass Index 30.00 (74.39 kg, 157.48 cm) aa5 14:30 After pt was placed in bed pt's O2 increased to 90% aa5 ED Course: 14:06 Patient arrived in ED. mr 14:07 Hedy Mccarty MD is Private Physician. mr 14:13 Arm band placed on. aa5 14:18 Triage completed. aa5 14:28 Patient placed in an exam room, on a stretcher. aa5 14:30 Dereck Savage MD is Attending Physician. temo 15:30 Patient has correct armband on for positive identification. Placed in gown. Bed in low jl7 position. Call light in reach. Side rails up X2. meat stocker on. Pulse ox on. NIBP on. Warm blanket given. 15:42 Helio Young, RN is Primary Nurse. jl7 16:01 EKG done, by precision lens technician. reviewed by Dereck Savage MD. 3 16:05 Initial lab(s) drawn, by wa, sent to lab. Urine collected: straight cath specimen, jl7 cloudy. Inserted saline lock: 20 gauge in right forearm, using aseptic technique. Blood collected. 16:40 X-ray completed. Portable x-ray completed in exam room. Patient tolerated procedure az well. 16:41 XRAY Chest (1 view) In Process Unspecified. EDMS 16:55 First set of blood cultures drawn by wa, by venipuncture 23G to right ac. tsh drawn by [facility], sent to lab. 17:09 Valerio Leo DO is Hospitalizing Provider. temo 17:10 Second set of blood cultures drawn by wa, by venipuncture 23G to right ac. 3 19:16 Primary Nurse role handed off by Helio Young, AMANDA jl7 19:28 Larissa Gil, AMANDA is Primary Nurse. lp1 19:30 No provider procedures requiring assistance completed. Patient admitted, IV remains in lp1 place. Administered Medications: 16:58 Drug: Magnesium Sulfate 1 grams Route: IVPB; Infused Over: 1 hrs; Site: right forearm; jl7 17:20 Follow up: IV Pause: 04/07/2018 17:20; IV Pause Reason: Limited IV access/Medication jl7 interaction 18:15 Follow up: Response: No adverse reaction; IV Status: Completed infusion jl7 16:59 Drug: NS 0.9% 1000 ml Route: IV; Rate: 75 ml/hr; Site: right forearm; jl7 20:30 Follow up: IV Status: IV converted to saline lock lp1 17:25 Drug: Lasix 40 mg Route: IVP; Site: right forearm; jl7 18:00 Follow up: Response: No adverse reaction jl7 17:29 Drug: Xopenex 1.25 mg Route: Inhalation; 7 18:00 Follow up: Response: No adverse reaction jl7 17:29 Drug: AtroVENT Aerosol 0.5 mg Route: Inhalation; jl7 18:00 Follow up: Response: No adverse reaction jl7 17:30 Drug: Rocephin - (cefTRIAXone) 1 grams Route: IVPB; Infused Over: 30 mins; Site: right jl7 forearm; 17:32 Follow up: Response: No adverse reaction; IV Status: Completed infusion jl7 17:33 Follow up: Response: No adverse reaction; IV Status: Completed infusion 7 Outcome: 17:11 Decision to Hospitalize by Provider. [facility] 19:32 Condition: stable [facility] 19:32 Instructed on the need for admit. 20:53 Admitted to Tele family with patient, via stretcher, room 420, with chart, Report lp1 called to AMANDA Mathur 21:00 Patient left the ED. lp1 Signatures: Dispatcher [employer] EDMS Dereck Savage MD MD cha Rivera, Maria Corneila Deras, RN RN aa5 Larissa Gil RN RN lp1 Helio Young RN RN jl7 Faina Gaona 3 Omaira Archibald RN Corrina Aguirre ea 3 Fatuma Luu Corrections: (The following items were deleted from the chart) 20:55 20:53 Admitted to Tele family with patient, room 420, with chart, Report called to rajinder Mathur RN lp1
[2018-04-07] MEDS ORDERED: LEVALBUTEROL 1.25 MG/3 ML NEB ONE (17:23)
[2018-04-07] MEDS ORDERED: FUROSEMIDE 40 MG/4 ML VIAL ONE (17:23)
[2018-04-07] MEDS ORDERED: IPRATROPIUM BROM 0.5MG/2.5ML ONE (17:23)
[2018-04-07] MEDS ORDERED: CEFTRIAXONE/SWI 1gm 1 GM/10 ML SYR ONE (17:24)
[2018-04-07] MEDS ORDERED: ALBUTEROL 2.5 MG/3 ML NEB SOL NEB PRN (18:10)
[2018-04-07] MEDS ORDERED: ACETAMINOPHEN 500 MG TAB PO PRN (18:10)
[2018-04-07] MEDS ORDERED: ONDANSETRON 4 MG/2 ML VIAL IV PRN (18:10)
--- NOTE | 2018-04-07 18:24 | P.HP ---
Certification for Inpatient Patient admitted to: Observation With expected LOS: <2 Midnights Patient will require the following post-hospital care: Home Health Services Practitioner: I am a practitioner with admitting privileges, knowledge of patient current condition, hospital course, and medical plan of care. Services: Services provided to patient in accordance with Admission requirements found in Title 42 Section 412.3 of the Code of Federal Regulations Patient History Date of Service: 04/07/18 Primary Care Provider: Dr. Mccarty; Pulmonary-Dr. Pierce Reason for admission: Shortness of breath, edema History of Present Illness: 83-year-old female presented emergency room with increasing edema to the lower extremities and shortness of breath. Patient with history of pulmonary hypertension, pulmonary fibrosis, chronic steroid use, and GERD. Over the last several days she has been having increasing swelling to the lower extremities. She apparently called her electrical inspector who increased her aldactone. She was to get home health as well. She also reports that she had C diff colitis 2 weeks ago and finished antibiotics last week. A recent C diff culture was negative. Patient noted increasing sleep and fatigue. Her weight has increased. She further reports that she had a sleep study done recently. She is waiting on results. She came to the ER for further evaluation. In the ER patient was evaluated. Patient required oxygen as she was hypoxic off oxygen. White count 6.7, hemoglobin 12. Sodium 142, potassium 4.4, BUN of 36, creatinine 1.3 with a GFR of 39. Blood sugar 127. Magnesium 1.5. BNP 8782. Tsh unremarkable. Urinalysis showed no bacteria. Chest x-ray showed chronic interstitial lung disease. Patient was admitted for observation. When saw the patient ER, she data have edema to the lower extremities. She also had some edema to the face. Patient was given IV Lasix in the emergency room. She did not appear in any respiratory distress. She is stable this time. Allergies nitrofurantoin [From Macrobid] Adverse Reaction (Unknown, Verified 01/15/18 21: 46) Shortness of breath Sulfa (Sulfonamide Antibiotics) Allergy (Uncoded 07/12/17 03:40) Unknown Home medications list reviewed: Yes Home Medications: Albuterol Sulfate [Ventolin Hfa] 2 inhaler IH QID 08/17/17 Ascorbic Acid [Vitamin C] 2 tab PO DAILY 08/17/17 Aspirin [Aspirin EC 325 MG] 325 mg PO DAILY 08/17/17 Bimatoprost [Lumigan Opthalmic Drops*] 1 drops OPTH DAILY 08/17/17 Cetirizine HCl [Zyrtec] 10 mg PO DAILY 08/17/17 Citalopram Hydrobromide [Citalopram HBr] 20 mg PO DAILY 08/17/17 Ferrous Sulfate [Ferrous Sulfate*] 325 mg PO BID 08/17/17 Omeprazole 20 mg PO DAILY 08/17/17 Sildenafil Citrate [Sildenafil] 20 mg PO TID 08/17/17 Simvastatin 80 mg PO BEDTIME 08/17/17 Acetaminophen [Tylenol Extra Strength] 500 mg PO BID PRN 01/16/18 Brimonidine Tartrate/Timolol [Combigan 0.2%-0.5% Eye Drops] 1 drop EACH EYE BID 01/16/18 Cephalexin [Keflex*] 500 mg PO DAILY 01/16/18 Cyanocobalamin (Vitamin B-12) [Vitamin B-12] 1,000 mcg PO DAILY 01/16/18 Furosemide [Lasix] 20 mg PO DAILY #30 tablet 01/16/18 Metoprolol Succinate [Toprol Xl*] 25 mg PO DAILY 01/16/18 Multivitamin [Multivitamins] 1 cap PO DAILY 01/16/18 Spironolactone [Aldactone*] 25 mg PO DAILY 01/16/18 predniSONE [Prednisone*] 10 mg PO DAILY 01/16/18 - Past Medical/Surgical History Diabetic: No -: Pulmonary fibrosis -: Pulmonary hypertension -: Tricuspid regurgitation -: CHF, diastolic dysfunction -: GERD -: Iron deficiency anemia -: Depression -: Hyperlipidemia -: Chronic steroids -: Endoscopy Psychosocial/ Personal History: Patient lives by herself. - Family History Father -: Stroke Mother -: Other (see notes) Notes: Rheumatoid arthritis - Social History Smoking Status: Never smoker Alcohol use: No CD- Drugs: No Caffeine use: Yes Place of Residence: Home Review of Systems General: Weakness, Malaise, As per HPI Eyes: Unremarkable ENT: Unremarkable Respiratory: Shortness of Breath, As per HPI Cardiovascular: Edema, As per HPI Gastrointestinal: Unremarkable Genitourinary: Unremarkable Musculoskeletal: Unremarkable Integumentary: Unremarkable Neurological: Unremarkable Lymphatics: Unremarkable Physical Examination - Physical Exam General: Alert, In no apparent distress, Oriented x3, Cooperative HEENT: Atraumatic, Normocephalic, PERRLA, Mucous membr. moist/pink Neck: Supple, No Thyromegaly Respiratory: Crackles/rales Cardiovascular: Normal pulses, Regular rate/rhythm Gastrointestinal: Normal bowel sounds, Soft and benign, Non-distended, No tenderness, No masses, No rebound, No guarding Musculoskeletal: No erythema, No tenderness, No warmth Integumentary: No erythema, No warmth, No cyanosis, Tenderness/swelling (1+ pitting edema to the lower extremities bilateral) Neurological: Normal speech, Normal strength at 5/5 x4 extr, Normal tone, Normal affect Lymphatics: No axilla or inguinal lymphadenopathy - Studies Laboratory Data (last 24 hrs) 04/07/18 15:53: PT 12.1, INR 1.03, APTT 23.0 L 04/07/18 15:53: WBC 6.7, Hgb 12.0, Hct 37.4, Plt Count 185 04/07/18 15:53: Sodium 142, Potassium 4.4, BUN 36 H, Creatinine 1.30, Glucose 127 H, Magnesium 1.5 L, Total Bilirubin 0.4, AST 32, ALT 26, Alkaline Phosphatase 40 L, Lipase 145 Assessment and Plan - Problems (Diagnosis) (1) Shortness of breath Current Visit: Yes Status: Acute Plan: Shortness of breath and edema likely from severe pulmonary hypertension and diastolic dysfunction. Will start IV Lasix. Will continue with Aldactone. Will provide a 1500 cc per day fluid restriction. Pulmonology has been consulted for further recommendation. Patient uses home oxygen. Patient also on chronic steroids. Will continue both. Anticipate discharge tomorrow if much improved. I will turn the service over to Dr. Mccormack tomorrow. I will go over the plan of care. (2) Edema Current Visit: Yes Status: Acute Plan: Her weight has increased along with edema over the last week. Will start IV Lasix. Will continue with Aldactone. Will address fluid restriction. Edema related to pulmonary hypertension and acute on chronic diastolic dysfunction. Qualifiers: Edema type: unspecified Qualified Code(s): R60.9 - Edema, unspecified (3) CHF (congestive heart failure) Current Visit: Yes Status: Acute Plan: Acute on chronic diastolic dysfunction. Will continue with IV Lasix. Will continue with Aldactone. Continue with fluid restriction. Anticipate possible discharge tomorrow. Patient will need to be set up with home health. Pulmonology consulted to further assess. Will continue with her pulmonary hypertension medication. Qualifiers: Heart failure type: diastolic Heart failure chronicity: acute on chronic Qualified Code(s): I50.33 - Acute on chronic diastolic (congestive) heart failure (4) Hyperlipidemia Current Visit: Yes Status: Chronic Plan: Continue home medication Qualifiers: Hyperlipidemia type: unspecified Qualified Code(s): E78.5 - Hyperlipidemia , unspecified (5) Depression Current Visit: Yes Status: Chronic Plan: Continue home medication Qualifiers: Depression Type: unspecified Qualified Code(s): F32.9 - Major depressive disorder, single episode, unspecified (6) Hypomagnesemia Current Visit: Yes Status: Acute Plan: Will monitor and replace appropriately. Replacement protocol in place. (7) Renal insufficiency Current Visit: Yes Status: Acute Plan: Likely from chronic diuretics. Will continue with diuresis due to acute on chronic CHF. Will monitor renal function closely. (8) Hypoxemia Current Visit: No Status: Acute Plan: Patient was hypoxic in the emergency room. Will need to maintain oxygen. Patient has home oxygen at home. (9) Pulmonary fibrosis Current Visit: No Status: Chronic Plan: Patient with chronic pulmonary fibrosis. Patient seen by pulmonology. Will consult pulmonology to further address. Patient on home oxygen. (10) Pulmonary hypertension Current Visit: No Status: Chronic Plan: Patient with pulmonary hypertension. Will continue with her home medication Discharge Plan: Home Plan to discharge in: 24 Hours - Advance Directives Does patient have a Living Will: No Does patient have a Durable POA for Healthcare: Yes - Code Status/Comfort Care Code Status Assessed: Yes Time Spent Managing Pts Care (In Minutes): 55
--- NOTE | 2018-04-07 19:06 | EKG ---
Test Date: 2018-04-07 Test Time: 15:51:39 Corporate Development Analyst: CHUCK MEASUREMENT RESULTS: Intervals: Rate: 89 NV: 164 QRSD: 76 QT: 376 QTc: 457 [place]: P: 37 NV: 164 QRS: -43 T: 28 INTERPRETIVE STATEMENTS: Sinus rhythm with premature atrial complexes Left axis deviation Low voltage QRS Inferior infarct, age undetermined Cannot rule out Anterior infarct, age undetermined Abnormal ECG Compared to ECG 01/15/2018 17:14:46 Atrial premature complex(es) now present Low QRS voltage now present Myocardial infarct finding still present Electronically Signed On 04-07-18 19:06:06 CDT by Mark Garcia
[2018-04-07 21:48] VITALS: BMI 29.9
[2018-04-07] MEDS: IPRATROPIUM BROM 0.5MG/2.5ML NEB SCH (21:51)
[2018-04-07 23:04] LABS: Urine Appearance CLEAR; Urine Bilirubin NEGATIVE (NEG); Urine Blood NEGATIVE (NEG); Urine Color YELLOW; Urine Glucose NEGATIVE (NEG); Urine Protein NEGATIVE (NEG); Urine Urobilinogen 0.2 mg/dL (0.2-1.0); Urine pH 5.5 (5.0-7.0)
[2018-04-07 23:20] LABS: Urine Microscopic Reflex ORDER UMIC
[2018-04-07] MEDS: SILDENAFIL CITRATE 20 MG TABLET PO SCH (23:20)
[2018-04-07] MEDS: ATORVASTATIN 40 MG TAB PO SCH (23:20)
[2018-04-07] MEDS: ENOXAPARIN 30 MG/0.3 ML SQ SCH (23:20)
[2018-04-07] MEDS: SPIRONOLACTONE 25 MG TABLET PO SCH (23:21)
[2018-04-07] MEDS: LACTOBACILLUS/ACIDOPHILUS TAB PO SCH (23:21)
[2018-04-08 00:10] LABS: Urine Culture Reflex Order NOT NEEDED
[2018-04-08 00:16] LABS: Urine Bacteria <20 /HPF (<20); Urine RBC NONE SEEN /HPF (NONE SEEN)
[2018-04-08] MEDS: IPRATROPIUM BROM 0.5MG/2.5ML NEB SCH ×4 (02:52→20:33)
[2018-04-08 05:14] LABS: Absolute Lymphocytes (CBC) 1.5 K/uL (0.7-4.9); Absolute Monocytes 0.7 K/uL (0.1-1.3); Absolute Neutrophil 4.9 K/uL (1.8-8.0); Basophils % 0.7 % (0-1.3); Eosinophils % 2.9 % (0-4.4); Hematocrit 35.6 % (36.0-45.0); Lymphocytes % 20.5 % (15.3-44.8); MCH 30.7 pg (27.0-35.0); MCV 92.9 fL (80-100); MPV 8.7 fL (7.6-11.3); Monocytes % 9.8 % (3.3-12.3); RBC Red Blood Cell Count 3.84 M/uL (3.86-4.86)
[2018-04-08 05:32] LABS: Magnesium 1.8 mg/dL (1.8-2.4)
[2018-04-08] MEDS ORDERED: MAGNESIUM SULFATE 1 gm IVPB 1 GM/100 ML BAG IV ONE (06:30)
[2018-04-08] MEDS: PANTOPRAZOLE 40MG TABLET PO SCH (06:39)
[2018-04-08] MEDS: METOPROLOL XL 25 MG TAB PO SCH (06:39)
[2018-04-08] MEDS: ENOXAPARIN 30 MG/0.3 ML SQ SCH (08:42)
[2018-04-08] MEDS: CYANOCOBALAMIN 1,000 MCG TAB PO SCH (08:42)
[2018-04-08] MEDS: CETIRIZINE HCL 5 MG TABLET PO SCH (08:42)
[2018-04-08] MEDS: LACTOBACILLUS/ACIDOPHILUS TAB PO SCH ×3 (08:42→21:53)
[2018-04-08] MEDS: predniSONE 10 MG TAB PO SCH (08:43)
[2018-04-08] MEDS: FUROSEMIDE 20 MG/ 2ML VIAL IV SCH ×2 (08:43→16:42)
[2018-04-08] MEDS: ASPIRIN EC 81 MG TAB PO SCH (08:43)
[2018-04-08] MEDS: FERROUS SULFATE 325 MG TAB PO SCH (08:43)
[2018-04-08] MEDS: SPIRONOLACTONE 25 MG TABLET PO SCH ×2 (08:43→21:53)
[2018-04-08] MEDS: CITALOPRAM 10 MG TABLET PO SCH (09:00)
[2018-04-08] MEDS: SILDENAFIL CITRATE 20 MG TABLET PO SCH (09:00)
[2018-04-08] MEDS: SILDENAFIL 20 MG TABLET PO SCH ×2 (13:18→21:54)
--- NOTE | 2018-04-08 19:28 | P.PN ---
Subjective Date of Service: 04/08/18 Primary Care Provider: Dr. Mccarty; Pulmonary-Dr. Pierce Chief Complaint: Shortness of breath, edema Patient feels better today, less shortness of breath, but still not at her baseline. Physical Examination - Vital Signs Temperature: 97.9 F Blood Pressure: 107/72 Pulse: 96 Respirations: 17 Pulse Ox (%): 94 - Physical Exam General: Alert, In no apparent distress Respiratory: Normal air movement, Diminished, Crackles/rales (Bibasilar rales) Cardiovascular: Regular rate/rhythm, Normal S1 S2 Gastrointestinal: Normal bowel sounds, No tenderness Musculoskeletal: No tenderness, Erythema (Bilateral lower extremity 1+) Integumentary: No rashes Neurological: Normal speech, Normal tone, Normal affect - Studies Medications List Reviewed: Yes Assessment And Plan - Current Problems (Diagnosis) (1) Acute on chronic diastolic CHF (congestive heart failure) Current Visit: Yes Status: Acute (2) Severe pulmonary arterial systolic hypertension Current Visit: Yes Status: Chronic (3) Dyspnea Current Visit: No Status: Acute Qualifiers: Dyspnea type: shortness of breath Qualified Code(s): R06.02 - Shortness of breath; R06.00 - Dyspnea, unspecified; R06.01 - Orthopnea (4) Chronic kidney disease Current Visit: Yes Status: Acute Qualifiers: Chronic kidney disease stage: stage 3 (moderate) Qualified Code(s): N18.3 - Chronic kidney disease, stage 3 (moderate) - Plan The patient has been improving since admission after being treated with IV diuretics. She still has room for more negative balance. She may be ready to be discharged home tomorrow. - Code Status/Comfort Care Code Status Assessed: Yes Code Status: Full Code
[2018-04-08] MEDS: ATORVASTATIN 40 MG TAB PO SCH (21:53)
[2018-04-09] MEDS: IPRATROPIUM BROM 0.5MG/2.5ML NEB SCH ×4 (01:59→19:45)
[2018-04-09 04:19] LABS: Absolute Lymphocytes (CBC) 1.4 K/uL (0.7-4.9); Absolute Monocytes 0.6 K/uL (0.1-1.3); Absolute Neutrophil 5.1 K/uL (1.8-8.0); Basophils % 0.5 % (0-1.3); Eosinophils % 2.4 % (0-4.4); Hematocrit 36.3 % (36.0-45.0); Lymphocytes % 19.5 % (15.3-44.8); MCH 30.2 pg (27.0-35.0); MCV 92.7 fL (80-100); Monocytes % 8.4 % (3.3-12.3); RBC Red Blood Cell Count 3.91 M/uL (3.86-4.86)
[2018-04-09 04:33] LABS: Magnesium 1.9 mg/dL (1.8-2.4); Potassium 4.8 mmol/L (3.5-5.1)
[2018-04-09] MEDS: PANTOPRAZOLE 40MG TABLET PO SCH (06:37)
[2018-04-09] MEDS: METOPROLOL XL 25 MG TAB PO SCH (06:37)
--- NOTE | 2018-04-09 06:37 | CON ---
Date of Consultation: 04/08/2018 Reason For Consultation: Congestive heart failure. History Of Present Illness: Ms. Matias is an 83-year-old white woman. She is known to us from [facility] office visits and admissions. She has severe pulmonary hypertension. Her echocardiogram in January of this year showed normal ejection fraction and diastolic dysfunction with a right ventricular syst olic pressure of 91 mmHg. She is followed by Dr. Pierce as an outpatient and she takes sildenafil 20 mg 3 times a day for pulmonary hypertension. She was having some shortness of breath issue over t he weekend. Dr. Bruno suggested to increase her lactone, but her symptoms continued, and she came into the emergency room, and was admitted. By the time I saw her, she has received 20 mg IV Lasix an d has diuresed significantly. She is feeling better, her edema is resolved. She denied chest pain, nausea, vomiting, or diaphoresis. She denied any palpitation or syncope. Denied any fever or chills . Past Medical History: 1.CHF, diastolic, chronic. 2.Pulmonary fibrosis, severe. 3.Severe pulmonary hypertension. 4.Dyslipidemia. 5.Hypertension. Allergies: TO SULFA, NITROFURANTOIN. Social History: Negative. Family History: Noncontributory. Medications: Lasix, multiple inhalers, aspirin, metoprolol, Zocor, sudanophil, Aldactone 50 mg daily , and prednisone. She is also on home oxygen at 3 L. Physical Examination: Vital Signs: Stable. General: She was in sinus rhythm. She was in no acute distress. She was pleasant. HEENT: Negative. Neck: Supple with no bruit or JVD. Chest: Revealed poor air movement, some wheezing at the bases, but no rales. Cardiac: Revealed a regular rhythm and rate with a tricuspid regurgitation murmur. No gallops or ru bs. Abdomen: Benign. Extremities: Reveal trace edema. Diagnostic Data: She had a UTI and she had a BNP of 8782. Her troponin was negative. Impression And Plan: 1.Acute exacerbation of chronic diastolic congestive heart failure. 2.Severe pulmonary hypertension. Another echocardiogram is pending. 3.Hypertension. 4.Pulmonary fibrosis. 5.Dyslipidemia. I will continue her present regimen with a higher dose of Aldactone. She can go home on a higher dos e of Lasix. She was then instructed about her dietary changes and salt restrictions. She was instru cted to take an extra Lasix if she starts feeling short of breath or edematous. She was instructed t o weigh herself daily. She can go home whenever it is okay with Dr. Leo and Dr. Pierce and we w ill be happy to see her in the office in 2 weeks. SERVANDO/RODO Voice ID: [id number] Report ID: [id number]
[2018-04-09] MEDS: SPIRONOLACTONE 25 MG TABLET PO SCH (09:26)
[2018-04-09] MEDS: LACTOBACILLUS/ACIDOPHILUS TAB PO SCH ×3 (09:26→22:32)
[2018-04-09] MEDS: CITALOPRAM 10 MG TABLET PO SCH (09:26)
[2018-04-09] MEDS: ASPIRIN EC 81 MG TAB PO SCH (09:26)
[2018-04-09] MEDS: FERROUS SULFATE 325 MG TAB PO SCH (09:26)
[2018-04-09] MEDS: predniSONE 10 MG TAB PO SCH (09:26)
[2018-04-09] MEDS: CYANOCOBALAMIN 1,000 MCG TAB PO SCH (09:26)
[2018-04-09] MEDS: CETIRIZINE HCL 5 MG TABLET PO SCH (09:27)
[2018-04-09] MEDS: ENOXAPARIN 30 MG/0.3 ML SQ SCH (09:27)
[2018-04-09] MEDS: FUROSEMIDE 20 MG/ 2ML VIAL IV SCH (09:27)
[2018-04-09] MEDS: SILDENAFIL 20 MG TABLET PO SCH ×3 (09:33→22:32)
--- NOTE | 2018-04-09 11:43 | P.CNS ---
Date of Consult: 04/09/18 Primary Care Provider: Dr. Mccarty; Pulmonary-Dr. Pierce Chief Complaint: Shortness of breath, edema History of Present Illness: Patient is 83 years of age well known to [place] history of pulmonary hypertension and pulmonary fibrosis admitted with worsening lower extremity edema today she is doing much better patient was advised to increase the spironolactone as an outpatient with no effect and confused today no cough or congestion feeling much better Allergies nitrofurantoin [From Macrobid] Adverse Reaction (Unknown, Verified 01/15/18 21: 46) Shortness of breath Sulfa (Sulfonamide Antibiotics) Allergy (Uncoded 07/12/17 03:40) Unknown Home Medications: Albuterol Sulfate [Ventolin Hfa] 2 inhaler IH QID 08/17/17 Ascorbic Acid [Vitamin C] 500 mg PO DAILY 08/17/17 Aspirin [Aspirin EC 325 MG] 325 mg PO DAILY 08/17/17 Bimatoprost [Lumigan Opthalmic Drops*] 1 drops OPTH DAILY 08/17/17 Cetirizine HCl [Zyrtec] 10 mg PO DAILY 08/17/17 Citalopram Hydrobromide [Citalopram HBr] 20 mg PO DAILY 08/17/17 Omeprazole 20 mg PO DAILY 08/17/17 Sildenafil Citrate [Sildenafil] 20 mg PO TID 08/17/17 Simvastatin 80 mg PO BEDTIME 08/17/17 Brimonidine Tartrate/Timolol [Combigan 0.2%-0.5% Eye Drops] 1 drop EACH EYE BID 01/16/18 Cephalexin [Keflex*] 500 mg PO DAILY 01/16/18 Metoprolol Succinate [Toprol Xl*] 25 mg PO DAILY 01/16/18 Spironolactone [Aldactone*] 50 mg PO DAILY 01/16/18 predniSONE [Prednisone*] 10 mg PO DAILY 01/16/18 Furosemide [Lasix] 40 mg PO DAILY 04/08/18 - Past Medical/Surgical History Diabetic: No -: Pulmonary fibrosis -: Pulmonary hypertension -: Tricuspid regurgitation -: CHF, diastolic dysfunction -: GERD -: Iron deficiency anemia -: Depression -: Hyperlipidemia -: Chronic steroids -: increase sleepiness during daytime -: Endoscopy -: cataract sx Psychosocial/ Personal History: Patient lives by herself. - Family History Father Medical History: Stroke Mother Medical History: Other (see notes) Notes: Rheumatoid arthritis - Social History Alcohol use: No CD- Drugs: No Caffeine use: No Place of Residence: Home Review of Systems General: Weakness Respiratory: Cough, Shortness of Breath Cardiovascular: Edema Physical Examination Temp Pulse Resp BP Pulse Ox 98.4 F 98 H 22 H 156/91 H 91 04/09/18 08:00 04/09/18 09:27 04/09/18 08:00 04/09/18 09:27 04/09/18 08:00 General: Alert, Oriented x3 HEENT: Atraumatic Neck: Supple Respiratory: Clear to auscultation bilaterally, Crackles/rales (Bilateral crackles) Cardiovascular: No edema, Normal S1 S2 - Problems (1) Pulmonary hypertension Onset Date: 04/08/18 Current Visit: No Status: Chronic Plan: Patient is 83 years of age with a history of pulmonary hypertension pulmonary fibrosis admitted with worsening edema she is currently doing better he is on Lasix and spironolactone at home laboratory data reviewed unremarkable normal renal function patient's vital signs in oxygenation are stable chest x-ray shows pulmonary fibrosis stable for discharge continue with present dose of diuretic patient does take 10 mg of prednisone every day according the daughter she has a little confused urine culture shows greater than 100,000 colony- forming bacteria gram-negative rods awaiting cultures
[2018-04-09] MEDS ORDERED: CEFTRIAXONE 1 GM/NS 50 ML 1 GM/50 ML BAG IV ONE (12:22)
[2018-04-09] MEDS: CEFTRIAXONE/SWI 1gm 1 GM/10 ML SYR IV SCH (13:26)
[2018-04-09] MEDS: FUROSEMIDE 40 MG TABLET PO SCH (15:00)
--- NOTE | 2018-04-09 15:55 | P.PN ---
Subjective Date of Service: 04/09/18 Primary Care Provider: Dr. Mccarty; Pulmonary-Dr. Pierce Chief Complaint: Shortness of breath, edema Patient seen and examined at bedside with RN. Chart reviewed at this time. Currently patient is altered per family member at bedside. This seemed to have some confusion and generalized weakness. Overnight patient has not been able to sleep properly and has been talking about things that are not in her room for the family member at bedside. Review of Systems 10-point ROS is otherwise unremarkable Physical Examination - Vital Signs Temperature: 97.8 F Blood Pressure: 131/82 Pulse: 92 Respirations: 26 Pulse Ox (%): 92 - Physical Exam General: Alert, In no apparent distress, Oriented x1, Confused HEENT: Atraumatic, PERRLA, EOMI Neck: Supple, JVD not distended Respiratory: Normal air movement, Crackles/rales Cardiovascular: Regular rate/rhythm, Normal S1 S2 Gastrointestinal: Normal bowel sounds, No tenderness Musculoskeletal: No tenderness Integumentary: No rashes Neurological: Normal tone, Abnormal affect Lymphatics: No axilla or inguinal lymphadenopathy - Studies Medications List Reviewed: Yes Assessment And Plan - Current Problems (Diagnosis) (1) Toxic encephalopathy Current Visit: Yes Status: Acute Plan: Acute AMS change most likely 2.2 to UTI -Continue to monitor closely -Does appear Alert but confused at this time (2) UTI (urinary tract infection) Current Visit: Yes Status: Acute Plan: Ua concerning for UTI. -Culture + for gram - rods -IV rocephin for now -F/U with Culture Qualifiers: Urinary tract infection type: acute cystitis Hematuria presence: without hematuria Qualified Code(s): N30.00 - Acute cystitis without hematuria (3) CHF exacerbation Onset Date: 01/16/18 Current Visit: No Status: Acute Plan: Pt with SOB most likely 2.2 to CHF exacerbation -IV lasix and Spironolactone. -Switched to PO lasix from Tomorrow -Continue to monitor for volume overload. -Fluid restriction and Low NA diet Qualifiers: Heart failure type: systolic Qualified Code(s): I50.23 - Acute on chronic systolic (congestive) heart failure (4) Generalized weakness Current Visit: Yes Status: Acute Plan: Generalized weakness. Most Likely 2.2 to Infection vs CHF exacerbation -PT consulted. -Fall precaution given (5) Chronic kidney disease Current Visit: Yes Status: Chronic Qualifiers: Chronic kidney disease stage: stage 3 (moderate) Qualified Code(s): N18.3 - Chronic kidney disease, stage 3 (moderate) (6) Depression Onset Date: 04/08/18 Current Visit: Yes Status: Chronic Qualifiers: Depression Type: unspecified Qualified Code(s): F32.9 - Major depressive disorder, single episode, unspecified (7) Hyperlipidemia Onset Date: 04/08/18 Current Visit: Yes Status: Chronic Qualifiers: Hyperlipidemia type: unspecified Qualified Code(s): E78.5 - Hyperlipidemia , unspecified (8) Pulmonary hypertension Onset Date: 04/08/18 Current Visit: No Status: Chronic (9) History of pulmonary fibrosis Current Visit: No Status: Acute Discharge Plan: Home Plan to discharge in: 24 Hours - Code Status/Comfort Care Code Status Assessed: Yes Critical Care: No
[2018-04-09] MEDS ORDERED: SILDENAFIL CITRATE 20 MG TABLET PO SCH (21:00)
[2018-04-09] MEDS ORDERED: ATORVASTATIN 40 MG TAB PO SCH (21:00)
[2018-04-09] MEDS ORDERED: HOME MED 1 EA UNK (Simvastatin [Simvastatin] 80 MG) PO SCH (21:00)
[2018-04-09] MEDS ORDERED: HOME MED 1 EA UNK (Brimonidine Tartrate/Timolol [Combigan 0.2%-0.5% Eye Drops] 1 DROP) EACH EYE SCH (21:00)
[2018-04-10] MEDS: IPRATROPIUM BROM 0.5MG/2.5ML NEB SCH ×3 (01:48→13:32)
[2018-04-10 04:26] LABS: Absolute Lymphocytes (CBC) 1.5 K/uL (0.7-4.9); Absolute Monocytes 0.5 K/uL (0.1-1.3); Absolute Neutrophil 4.1 K/uL (1.8-8.0); Basophils % 0.7 % (0-1.3); Eosinophils % 2.9 % (0-4.4); Hematocrit 34.8 % (36.0-45.0); Lymphocytes % 23.6 % (15.3-44.8); MCH 30.8 pg (27.0-35.0); MCV 91.8 fL (80-100); MPV 8.9 fL (7.6-11.3); Monocytes % 8.3 % (3.3-12.3); RBC Red Blood Cell Count 3.79 M/uL (3.86-4.86)
[2018-04-10 04:35] LABS: Magnesium 1.9 mg/dL (1.8-2.4); Potassium 4.1 mmol/L (3.5-5.1)
[2018-04-10] MEDS ORDERED: PANTOPRAZOLE 40MG TABLET PO SCH (07:30)
[2018-04-10] MEDS: CETIRIZINE HCL 5 MG TABLET PO SCH (08:38)
[2018-04-10] MEDS: FERROUS SULFATE 325 MG TAB PO SCH (08:38)
[2018-04-10] MEDS: CYANOCOBALAMIN 1,000 MCG TAB PO SCH (08:38)
[2018-04-10] MEDS: LACTOBACILLUS/ACIDOPHILUS TAB PO SCH ×2 (08:38→13:31)
[2018-04-10] MEDS: PANTOPRAZOLE 40MG TABLET PO SCH (08:39)
[2018-04-10] MEDS: FUROSEMIDE 40 MG TABLET PO SCH (08:39)
[2018-04-10] MEDS: SILDENAFIL 20 MG TABLET PO SCH ×2 (08:40→13:31)
[2018-04-10] MEDS: ENOXAPARIN 30 MG/0.3 ML SQ SCH (08:40)
[2018-04-10] MEDS ORDERED: METOPROLOL XL 25 MG TAB PO SCH (09:00)
[2018-04-10] MEDS ORDERED: CITALOPRAM 10 MG TABLET PO SCH (09:00)
[2018-04-10] MEDS ORDERED: HOME MED 1 EA UNK (Ascorbic Acid [Vitamin C] 500 MG) PO SCH (09:00)
[2018-04-10] MEDS ORDERED: HOME MED 1 EA UNK (Citalopram Hydrobromide [Citalopram Hbr] 20 MG) PO SCH (09:00)
[2018-04-10] MEDS ORDERED: HOME MED 1 EA UNK (Omeprazole [Omeprazole] 20 MG) PO SCH (09:00)
[2018-04-10] MEDS ORDERED: ASPIRIN EC 325 MG TABLET PO SCH (09:00)
[2018-04-10] MEDS ORDERED: ASCORBIC ACID 500 MG TABLET PO SCH (09:00)
[2018-04-10] MEDS: CEFTRIAXONE/SWI 1gm 1 GM/10 ML SYR IV SCH (09:00)
[2018-04-10] MEDS ORDERED: HOME MED 1 EA UNK (Aspirin [Aspirin Ec 325 Mg] 325 MG) PO SCH (09:00)
[2018-04-10] MEDS ORDERED: CEFTRIAXONE 1 GM/NS 50 ML 1 GM/50 ML BAG IV SCH (09:00)
[2018-04-10] MEDS ORDERED: BIMATOPROST OPHTH DROPS/2.5 ML BTL OPTH SCH (09:00)
[2018-04-10] MEDS ORDERED: SPIRONOLACTONE 25 MG TABLET PO SCH (09:00)
[2018-04-10] MEDS ORDERED: predniSONE 10 MG TAB PO SCH (09:00)
[2018-04-10 09:04] VITALS: TEMP 97.4
[2018-04-10] MEDS ORDERED: Levofloxacin500mg IV 500 MG/100 ML BAG IV SCH (10:00)
[2018-04-10 12:50] VITALS: BP 113/69
[2018-04-10 14:09] VITALS: O2SAT 94
--- NOTE | 2018-04-10 15:44 | P.DS ---
Admission Date: 04/07/18 Discharge Date: 04/10/18 Primary Care Provider: Dr. Mccarty; Pulmonary-Dr. Pierce Disposition: ROUTINE DISCHARGE Discharge Condition: GOOD Reason for Admission: Shortness of breath, edema Consultations: Pulmonology Cardiology - Problems (1) Toxic encephalopathy Status: Acute (2) UTI (urinary tract infection) Status: Acute Qualifiers: Urinary tract infection type: acute cystitis Hematuria presence: without hematuria Qualified Code(s): N30.00 - Acute cystitis without hematuria (3) CHF exacerbation Onset Date: 01/16/18 Status: Acute Qualifiers: Heart failure type: systolic Qualified Code(s): I50.23 - Acute on chronic systolic (congestive) heart failure (4) Generalized weakness Status: Acute (5) Chronic kidney disease Status: Chronic Qualifiers: Chronic kidney disease stage: stage 3 (moderate) Qualified Code(s): N18.3 - Chronic kidney disease, stage 3 (moderate) (6) Depression Onset Date: 04/08/18 Status: Chronic Qualifiers: Depression Type: unspecified Qualified Code(s): F32.9 - Major depressive disorder, single episode, unspecified (7) Hyperlipidemia Onset Date: 04/08/18 Status: Chronic Qualifiers: Hyperlipidemia type: unspecified Qualified Code(s): E78.5 - Hyperlipidemia , unspecified (8) Pulmonary hypertension Onset Date: 04/08/18 Status: Chronic (9) History of pulmonary fibrosis Status: Acute Brief History of Present Illness: 83-year-old female presented emergency room with increasing edema to the lower extremities and shortness of breath. Patient with history of pulmonary hypertension, pulmonary fibrosis, chronic steroid use, and GERD. Over the last several days she has been having increasing swelling to the lower extremities. She apparently called her senior medical billing specialist who increased her aldactone. She was to get home health as well. She also reports that she had C diff colitis 2 weeks ago and finished antibiotics last week. A recent C diff culture was negative. Patient noted increasing sleep and fatigue. Her weight has increased. She further reports that she had a sleep study done recently. She is waiting on results. She came to the ER for further evaluation. In the ER patient was evaluated. Patient required oxygen as she was hypoxic off oxygen. White count 6.7, hemoglobin 12. Sodium 142, potassium 4.4, BUN of 36, creatinine 1.3 with a GFR of 39. Blood sugar 127. Magnesium 1.5. BNP 8782. Tsh unremarkable. Urinalysis showed no bacteria. Chest x-ray showed chronic interstitial lung disease. Patient was admitted for observation. When saw the patient ER, she data have edema to the lower extremities. She also had some edema to the face. Patient was given IV Lasix in the emergency room. She did not appear in any respiratory distress. She is stable this time. Hospital Course: Overall during the hospital stay patient remained stable The patient was initially admitted to the hospital for CHF exacerbation was started on IV Lasix here in the hospital. Patient improved overall while here in the hospital in terms of her CHF exacerbation. Pulmonology was consulted as patient had you see the hand pulmonary fibrosis. Patient was was doing well and was stable from cardiopulmonary status. Day 3 of hospital visit patient did develop acute altered mental status most likely secondary to urinary tract infection here in the hospital. Patient UA was done which was consider positive and culture was done which was positive for Enterobacter which was sensitive to Levaquin. Patient was switched over to p.o. Levaquin and had marked improvement in her symptoms. Patient then was discharged home under stable condition was given a prescription for p.o. Levaquin along with Flagyl as patient recently had an episode of C. diff for 2 weeks. Patient was also asked to continue taking all her medication as prescribed and to stop Keflex. Patient was asked to follow up with urology for due to recurrent history of UTI. Patient and family member educated extensively on several concerns regarding disease process and followup appointments. Family but he was in agreement for discharge home and thus patient was discharged home under stable condition. Home health has been set up for patient for rehab at the house. Vital Signs/Physical Exam: Temp Pulse Resp BP Pulse Ox 97.4 F 98 H 18 113/69 91 04/10/18 12:00 04/10/18 12:00 04/10/18 12:00 04/10/18 12:04/10/18 12:00 General: Alert, In no apparent distress HEENT: Atraumatic, PERRLA, EOMI Neck: Supple, JVD not distended Respiratory: Clear to auscultation bilaterally, Normal air movement Cardiovascular: Regular rate/rhythm, Normal S1 S2 Gastrointestinal: Normal bowel sounds, No tenderness Musculoskeletal: No tenderness Integumentary: No rashes Neurological: Normal speech, Normal tone, Normal affect Lymphatics: No axilla or inguinal lymphadenopathy Laboratory Data at Discharge: WBC 6.4 K/uL (4.3-10.9) 04/10/18 03:38 Hgb 11.7 g/dL (12.0-15.0) L 04/10/18 03:38 Hct 34.8 % (36.0-45.0) L 04/10/18 03:38 Plt Count 168 K/uL (152-406) 04/10/18 03:38 PT 12.1 SECONDS (9.5-12.5) 04/07/18 15:53 INR 1.03 04/07/18 15:53 APTT 23.0 SECONDS (24.3-36.9) L 04/07/18 15:53 Sodium 141 mmol/L (136-145) 04/10/18 03:38 Potassium 4.1 mmol/L (3.5-5.1) 04/10/18 03:38 BUN 30 mg/dL (7-18) H 04/10/18 03:38 Creatinine 1.20 mg/dL (0.55-1.3) 04/10/18 03:38 Glucose 87 mg/dL (74-106) 04/10/18 03:38 Magnesium 1.9 mg/dL (1.8-2.4) 04/10/18 03:38 Total Bilirubin 0.4 mg/dL (0.2-1.0) 04/07/18 15:53 AST 32 U/L (15-37) 04/07/18 15:53 ALT 26 U/L (12-78) 04/07/18 15:53 Alkaline Phosphatase 40 U/L (45-117) L 04/07/18 15:53 Lipase 145 U/L (73-393) 04/07/18 15:53 Home Medications: Albuterol Sulfate [Ventolin Hfa] 2 inhaler IH QID 08/17/17 Ascorbic Acid [Vitamin C] 500 mg PO DAILY 08/17/17 Aspirin [Aspirin EC 325 MG] 325 mg PO DAILY 08/17/17 Bimatoprost [Lumigan Opthalmic Drops*] 1 drops OPTH DAILY 08/17/17 Cetirizine HCl [Zyrtec] 10 mg PO DAILY 08/17/17 Citalopram Hydrobromide [Citalopram HBr] 20 mg PO DAILY 08/17/17 Omeprazole 20 mg PO DAILY 08/17/17 Sildenafil Citrate [Sildenafil] 20 mg PO TID 08/17/17 Simvastatin 80 mg PO BEDTIME 08/17/17 Brimonidine Tartrate/Timolol [Combigan 0.2%-0.5% Eye Drops] 1 drop EACH EYE BID 01/16/18 Metoprolol Succinate [Toprol Xl*] 25 mg PO DAILY 01/16/18 Spironolactone [Aldactone*] 50 mg PO DAILY 01/16/18 predniSONE [Prednisone*] 10 mg PO DAILY 01/16/18 Furosemide [Lasix] 40 mg PO DAILY 04/08/18 levoFLOXacin [Levaquin] 500 mg PO DAILY #10 tab 04/10/18 metroNIDAZOLE [Flagyl] 500 mg PO Q8H #30 tablet 04/10/18 New Medications: levoFLOXacin [Levaquin] 500 mg PO DAILY #10 tab metroNIDAZOLE [Flagyl] 500 mg PO Q8H #30 tablet Patient Discharge Instructions: Please f.u with Dr Blackwell in 1 to 2 week post discharge. New medication. Levaquin 500mg Daily. Flagyl 500mg q8h Daily. Stop Taking. keflex Diet: Regular Activity: Ad vlad Followup: Chris Pierce MD [ACTIVE - CAN ADMIT] - 1 Week
== END 2018-04-10 14:57 | disposition home health service (06) ==
LOC: ER 14:01 → ERHOLD 17:14 → 4TH 20:28
PROVIDERS: ADMIT Family Medicine; ATTEND Family Medicine
DX: I13.0 Hypertensive heart and chronic kidney disease with heart failure and stage 1 through stage 4 chronic kidney disease, or unspecified chronic kidney disease (principal); I50.23 Acute on chronic systolic (congestive) heart failure; N18.3 Chronic kidney disease, stage 3 (moderate); N39.0 Urinary tract infection, site not specified; B96.89 Other specified bacterial agents as the cause of diseases classified elsewhere; E78.5 Hyperlipidemia, unspecified; F32.9 Major depressive disorder, single episode, unspecified; E83.42 Hypomagnesemia; I27.20 Pulmonary hypertension, unspecified; J84.10 Pulmonary fibrosis, unspecified; Z88.2 Allergy status to sulfonamides
CPT/HCPCS: 36415 ×2; 71045; 80048 ×4; 80076; 82550; 82553; 83690; 83735 ×4; 83880; 84443; 84484; 85025 ×4; 85610; 85730; 87040 ×2; 87077; 87086; 87088; 87186; 93005; 94640; 96361; 96365; 96375; 97116; 97163; 97530; 99285; G0378 ×2; J0696 ×2; J1650 ×4; J1940 ×3; J3475 ×2; J7030; 81003; 81015; J7512

== ENCOUNTER 2018-04-17 11:28 | Inpatient (IN) | payer OTHER ==
--- OUTSIDE RECORDS SUMMARY | 2018-04-17 11:38 | XMS REPORT | Clinical Summary ---
:1935 Author Organization [facility] Address [address] [place] [address] Care Team Providers Name Role Phone Hedy [...] Ancillary Orders Radiology Mert Malhotra MD after 04/16/2017 Family History Medical History Relation Name Comments [...] CDT procedure are in the results section. SC AN ELECTIVE Routine 06/05/2017 8:31 ENDOTRACHEAL AIRWAY AM CDT Procedure Note - Priyanka Vargas MD - 06/05/2017 8:30 AM CDT Airway Performed by: PRIYANKA VARGAS Authorized by: PRIYANKA VARGAS Location: OR Urgency: Elective Difficult Airway: No Anesthesiologist: PRIYANKA VARGAS Resident/SUPERVISOR PLATING [employer] POINT ASSEMBLY: VITO QUINONES Preoxygenated with 100% O2: Yes [...] STUDY Routine 04/25/2017 10:07 AM CDT after 04/16/2017 Results Estimated GFR (06/06/2017 5:40 AM)Only the most recent of2 resultswithin the time period is included. GFR Non Af Amer 68 mL/min/1.73 m2 [facility] DEPARTMENT OF PATHOLOGY AND GENOMIC MEDICINE GFR Af Amer 83 mL/min/1.73 m2 [facility] DEPARTMENT OF Comment: PATHOLOGY AND GENOMIC Chronic [...] specimen Performing Organization Address City/State/Zipcode Phone Number [facility] DEPARTMENT OF PATHOLOGY AND [address] [place], [place] [address] [address] GENOMIC MEDICINE CBC with platelet and differential (06/06/2017 5:40 AM)Only the most recent of2 resultswithin the time period is included. WBC 7.58 4.50 - 11.00 k/uL [facility] DEPARTMENT OF PATHOLOGY AND GENOMIC MEDICINE RBC 3.61 (L) 4.20 - 5.50 m/uL [facility] DE[facility]MENT OF PATHOLOGY AND GENOMIC MEDICINE HGB 10.6 (L) 12.0 - 16.0 g/dL [facility] DEPARTMENT OF PATHOLOGY AND GENOMIC MEDICINE HCT 32.3 (L) 37.0 - 47.0 % [facility] DEPARTMENT OF PATHOLOGY AND GENOMIC MEDICINE MCV 89.5 82.0 - 100.0 fL [facility] DEPARTMENT OF PATHOLOGY AND GENOMIC MEDICINE MCH 29.4 27.0 - 34.0 pg [facility] DEPARTMENT OF PATHOLOGY AND GENOMIC MEDICINE MCHC 32.8 31.0 - 37.0 g/dL [facility] DEPARTMENT OF PATHOLOGY AND GENOMIC MEDICINE RDW - SD 45.7 37.0 - 55.0 fL [facility] DEPARTMENT OF PATHOLOGY AND GENOMIC MEDICINE MPV 10.0 8.8 - 13.2 fL [facility] DEPARTMENT OF PATHOLOGY AND GENOMIC MEDICINE Platelet count 188 150 - 400 k/uL [facility] DEPARTMENT OF PATHOLOGY AND GENOMIC MEDICINE Nucleated RBC 0.00 /100 WBC [facility] DEPARTMENT OF PATHOLOGY AND GENOMIC MEDICINE Neutrophils 68.5 39.0 - 69.0 % [facility] DEPARTMENT OF PATHOLOGY AND GENOMIC MEDICINE Lymphocytes 20.6 (L) 25.0 - 45.0 % [facility] DEPARTMENT OF PATHOLOGY AND GENOMIC MEDICINE Monocytes 7.4 0.0 - 10.0 % [facility] DEPARTMENT OF PATHOLOGY AND GENOMIC MEDICINE Eosinophils 2.8 0.0 - 5.0 % [facility] DEPARTMENT OF PATHOLOGY AND GENOMIC MEDICINE Basophils 0.3 0.0 - 1.0 % [facility] DEPARTMENT OF PATHOLOGY AND GENOMIC MEDICINE Immature granulocytes 0.4Comment: 0.0 - 1.0 % [facility] DEPARTMENT OF "Immature PATHOLOGY AND GENOMIC granulocytes" MEDICINE (promyelocytes, myelocytes, metamyelocytes) Performing Organization Address City/State/Zipcode Phone Number [facility] DEPARTMENT OF PATHOLOGY AND [address] [place] [phone] [employer] [facility] Basic metabolic panel (06/06/2017 5:40 AM) Sodium 130 (L) 135 - 148 mEq/L [facility] DEPARTMENT OF PATHOLOGY AND GENOMIC MEDICINE Potassium 4.0 3.5 - 5.0 mEq/L [facility] DEPARTMENT OF PATHOLOGY AND GENOMIC MEDICINE Chloride 91 (L) 98 - 112 mEq/L [facility] DEPARTMENT OF PATHOLOGY AND GENOMIC MEDICINE CO2 25 24 - 31 mEq/L [facility] DEPARTMENT OF PATHOLOGY AND GENOMIC MEDICINE Anion gap 14 7 - 15 mEq/L [facility] DEPARTMENT OF PATHOLOGY Comment: AND [facility] Starting from November , anion gap calculation no longer incorporates potassium. Please note the change. BUN 10 8 - 23 mg/dL [facility] DEPARTMENT OF PATHOLOGY AND GENOMIC MEDICINE Creatinine 0.8 0.5 - 0.9 mg/dL [facility] DEPARTMENT OF PATHOLOGY AND GENOMIC MEDICINE Glucose 92 65 - 99 mg/dL [facility] DEPARTMENT OF PATHOLOGY AND GENOMIC MEDICINE Calcium 9.1 8.8 - 10.2 mg/dL [facility] DEPARTMENT OF PATHOLOGY AND GENOMIC MEDICINE Specimen Plasma specimen Performing Organization Address City/[facility] Phone Number [facility] DEPARTMENT OF PATHOLOGY AND [address] [place] [address] AFB culture (06/05/2017 10:22 AM) AFB culture isolate No growth after 6 weeks of incubation. [facility] DEPARTMENT OF PATHOLOGY Comment: AND [employer] [facility] Specimen Information Specimen Source: Biopsy Specimen Site: Lymph node , 4Right FNA Specimen Biopsy - Other Performing Organization Address City/[facility] Facility[facility] Phone Number [facility] DEPARTMENT OF PATHOLOGY AND [address] [place] [address] Fungus culture (06/05/2017 10:22 AM) Fungus culture isolate No growth after 4 weeks of incubation. [facility] DEPARTMENT OF Comment: PATHOLOGY AND GENOMIC Specimen Information MEDICINE Specimen Source: Biopsy Specimen Site: Lymph node , 4Right FNA Specimen Biopsy - Other Performing Organization Address City/[facility] Facility[facility] Phone Number [facility] DEPARTMENT OF PATHOLOGY AND [address] [place] [address] GENOMIC [facility] XR Chest 1 Vw Portable (06/05/2017 10:18 AM) Narrative Performed At EXAMINATION:XR CHEST 1 VW PORTABLE [facility] CLINICAL HISTORY:SHORTNESS OF BREATH COMPARISON:None. IMPRESSION: Single frontal view reveals a normal cardiomediastinal silhouette, apart from arch calcifications. Pulmonary vasculature is prominent with diffuse patchy airspace opacities concerning for multilobar pneumonia. The remainder of the examination is unremarkable, apart from degenerative changes of the shoulders. [facility]-[id number] Procedure Note Interface, Radiology Results Incoming - [...] apart from degenerative changes of the shoulders. [facility]-[id number] Performing Organization Address City/[facility]/Zipcode Phone Number [address] [address] Fungus smear (06/05/2017 9:22 AM) Fungus smear No fungi observed. [facility] DEPARTMENT OF PATHOLOGY Comment: AND GENOMIC MEDICINE Specimen Information Specimen Source: Biopsy Specimen Site: Lymph node , 4Right FNA Specimen Biopsy Performing Organization Address [facility] Facility[facility] Phone Number [facility] DEPARTMENT OF PATHOLOGY AND [address] [place] [phone] GENOMIC MEDICINE Aerobic culture (06/05/2017 9:22 AM) Aerobic culture isolate No growth after 3 days. [facility] DEPARTMENT OF Comment: PATHOLOGY AND GENOMIC Specimen Information MEDICINE Specimen Source: Biopsy Specimen Site: Lymph node , 4Right FNA Specimen Biopsy - Other Performing Organization Address [facility] Facility[facility] Phone Number [facility] DEPARTMENT OF PATHOLOGY AND [address] [place] [phone] GENOMIC MEDICINE Gram stain (06/05/2017 9:22 AM) Gram stain isolate Few WBC's [facility] DEPARTMENT OF PATHOLOGY No organisms seen AND GENOMIC MEDICINE Comment: Specimen Information Specimen Source: Biopsy Specimen Site: Lymph node , 4Right FNA Specimen Biopsy Performing Organization Address [facility]/Zipcode Phone Number [facility] DEPARTMENT OF PATHOLOGY AND [address] [place], [place] [phone] GENOMIC MEDICINE AFB stain (06/05/2017 9:22 AM) AFB stain No acid fast bacilli (AFB) seen. [facility] DEPARTMENT OF PATHOLOGY AND Comment: GENOMIC MEDICINE Specimen Information Specimen Source: Biopsy Specimen Site: Lymph node , 4Right FNA Specimen Biopsy Performing Organization Address City/[facility] Phone Number [facility] DEPARTMENT OF PATHOLOGY AND [address] [place] [address] Anaerobic culture (06/05/2017 9:22 AM) Anaerobic culture No anaerobic organisms isolated. [facility] DEPARTMENT OF isolate Comment: PATHOLOGY AND GENOMIC Specimen Information MEDICINE Specimen Source: Biopsy Specimen Site: Lymph node , 4Right FNA Specimen Biopsy - Other Performing Organization Address [facility] Facility[facility] Phone Number [facility] DEPARTMENT OF PATHOLOGY AND [address] [place] [address] GENOMIC [facility] Flow cytometry evaluation (06/05/2017 8:40 AM) [facility] DEPARTMENT OF PATHOLOGY AND GENOMIC MEDICINE Flow cytometry evaluation See link below for PDF [facility] DEPARTMENT OF Lab Report PATHOLOGY AND GENOMIC MEDICINE Performing Organization Address [facility] Facilitycoct Phone Number [facility] DEPARTMENT OF PATHOLOGY AND [address] [place] [address] GENOMIC [facility] Cytology (non-gynecological) request (06/05/2017 8:40 AM)Only the most recent of2 resultswithin the time period is included. [facility] DEPARTMENT OF PATHOLOGY AND GENOMIC MEDICINE Cytology See link below for PDF [facility] DEPARTMENT OF (non-gynecological) report Lab Report PATHOLOGY AND GENOMIC MEDICINE Performing Organization Address [facility] Number [facility] DEPARTMENT OF PATHOLOGY AND [address] [place] [address] GENOMIC MEDICINE Type and screen (06/05/2017 6:40 AM)Only the most recent of2 resultswithin the time period is included. ABO grouping O [facility] DEPARTMENT OF PATHOLOGY AND GENOMIC MEDICINE Rh type POS [facility] DEPARTMENT OF PATHOLOGY AND GENOMIC MEDICINE Antibody screen (gel) NEG [facility] DEPARTMENT OF PATHOLOGY AND GENOMIC MEDICINE Specimen Blood Performing Organization Address City/[facility]/Zipcode Phone Number [facility] DEPARTMENT OF PATHOLOGY AND [address] [place] [address] Partial thromboplastin time, activated (05/09/2017 4:00 PM) PTT 26.9 23.0 - 36.0 sec [facility] DEPARTMENT OF PATHOLOGY Comment: AND [facility] PTT therapeutic range for unfractionated heparin is 61.0-112.0 seconds which corresponds to Anti-Xa 0.3-0.7 U/ml. Specimen Blood Performing Organization Address City/[facility]/Zipcode Phone Number [facility] DEPARTMENT OF PATHOLOGY AND [address] [place] [address] [facility] Prothrombin time with INR (05/09/2017 4:00 PM) Prothrombin time 12.8 12.0 - 15.0 sec [facility] DEPARTMENT OF PATHOLOGY AND GENOMIC MEDICINE INR 1.0 [facility] DEPARTMENT OF Comment: PATHOLOGY AND GENOMIC The International Normalized Ratio (INR) is a therapeutic MEDICINE monitoring tool for patients who are stable on oral anticoagulant therapy. An INR of 2.0-3.0 is suggested for deep vein thrombosis/pulmonary embolism. Specimen Blood Performing Organization Address City/[facility] Facility[facility] Phone Number [facility] PATHOLOGY AND [address] [place] [address] [facility] Comprehensive metabolic panel (05/09/2017 4:00 PM) Sodium 140 135 - 148 mEq/L [facility] DEPARTMENT OF PATHOLOGY AND GENOMIC MEDICINE Potassium 5.0 3.5 - 5.0 mEq/L [facility] DEPARTMENT OF PATHOLOGY AND GENOMIC MEDICINE Chloride 101 98 - 112 mEq/L [facility] DEPARTMENT OF PATHOLOGY AND GENOMIC MEDICINE CO2 26 24 - 31 mEq/L [facility] DEPARTMENT OF PATHOLOGY AND GENOMIC MEDICINE Anion gap 13 7 - 15 mEq/L [facility] DEPARTMENT OF Comment: PATHOLOGY AND GENOMIC Starting from November , anion gap calculation MEDICINE no longer incorporates potassium. Please note the change. BUN 19 8 - 23 mg/dL [facility] DEPARTMENT OF PATHOLOGY AND GENOMIC MEDICINE Creatinine 1.1 (H) 0.5 - 0.9 mg/dL [facility] DEPARTMENT OF PATHOLOGY AND GENOMIC MEDICINE Glucose 106 (H) 65 - 99 mg/dL [facility] DEPARTMENT OF PATHOLOGY AND GENOMIC MEDICINE Calcium 9.7 8.8 - 10.2 mg/dL [facility] DEPARTMENT OF PATHOLOGY AND GENOMIC MEDICINE Protein 7.3 6.3 - 8.3 g/dL [facility] DEPARTMENT OF Comment: PATHOLOGY AND GENOMIC 4.6-7.0 g/dL MEDICINE 1 week 4.4-7.6 g/dL 7 months-1year5.1-7.3 g/dL 1-2 years5.6-7.5 g/dL >3 years6.0-8.0 g/dL 18-150 6.3-8.3 g/dL Albumin 3.6 3.5 - 5.0 g/dL [facility] DEPARTMENT OF PATHOLOGY AND GENOMIC MEDICINE A/G ratio 1.0 0.7 - 3.8 [facility] DEPARTMENT OF PATHOLOGY AND GENOMIC MEDICINE Alkaline phosphatase 66 35 - 104 U/L [facility] DEPARTMENT OF PATHOLOGY AND GENOMIC MEDICINE AST 29 10 - 35 U/L [facility] DEPARTMENT OF PATHOLOGY AND GENOMIC MEDICINE ALT 23 5 - 50 U/L [facility] DEPARTMENT OF PATHOLOGY AND GENOMIC MEDICINE Total bilirubin <0.2 0.0 - 1.2 mg/dL [facility] DEPARTMENT OF PATHOLOGY AND GENOMIC MEDICINE Specimen Plasma specimen Performing Organization Address City/State/[facility] Phone Number [facility] DEPARTMENT OF PATHOLOGY AND [address] [place] [phone] [facility] MEDICINE CT Chest External Study (05/02/2017 1:55 PM)Only the most recent of2 resultswithin the time period is included. Narrative Performed At This exam was not acquired at a [facility] facility and has not been [facility] interpreted by a [facility] Provider.The exam was imported into our imaging system for comparisons purposes. Performing Organization Address City/[facility] Facility[facility] Phone Number [facility] [address] [place] [address] after 04/16/2017 Insurance Payer Benefit Plan / Group Subscriber ID Type Phone Address [facility] O
--- OUTSIDE RECORDS SUMMARY | 2018-04-17 11:39 | XMS REPORT ---
[...] Status Dosage System Date Date Ventolin HFA [facility] 70476231890 90 MCG/ACT Active 2 puffs as Inhalation needed every 6 hrs Xanax [facility] 16113523798 0.25 MG Orally Active 1 tablet once a day Omeprazole ND 75933952654 20 MG Orally Active 1 capsule Once a day Diflucan ND 81350055909 150 MG Orally Active 1 tablet Nystatin ND 40245987126 093921 UNIT/GM Active 1 application Externally to affected every 8 hrs area Coreg [facility] 39529175629 6.25 MG Orally Active 1tablet twice a day Zyrtec Allergy [facility] 43125248354 10 MG Orally Active 1 tablet Once a day Aspir-81 [facility] 51926634360 81 MG Orally Active 1 tablet Once a day Ventolin HFA [facility] 42334477248 90 Active INHALE TWO PUFFS BY MOUTH FOUR TIMES A DAY Celexa [facility] 44823931729 20 MG Orally Active 1 tablet Once a day Nasacort [facility] 01630637522 55 MCG/ACT Active 1 puff in Allergy 24HR Nasally Once a each nostril day Ferrous [facility] 36443622685 325 (65 Fe) MG Active 1 tablet Sulfate Orally twice a day Breo Ellipta [facility] 01644435941 100-25 MCG/INH Active 1 puff Inhalation Once a day Simvastatin [facility] 53488406016 80 MG Orally Active 1 tablet in Once a day the evening Results Name Result Date Reference Range Unit Abnormality Flag B12 VITAMIN CBC W/AUTO DIFF Summary Purpose eClinicalWorks Submission
--- OUTSIDE RECORDS SUMMARY | 2018-04-17 11:39 | XMS REPORT ---
[...] Start End Status Dosage System Date Date [facility] 89489985373 81 MG Orally Active 1 tablet Once a day Nasacort [facility] 40929047438 55 MCG/ACT Active 1 puff in Allergy 24HR Nasally Once a each nostril day Breo Ellipta [facility] 10047826799 100-25 MCG/INH Active 1 puff Inhalation Once a day Omeprazole [facility] 71822713255 20 MG Orally Active 1 capsule Once a day Xanax [facility] [address]-08 0.25 MG Orally Active 1 tablet once a day Celexa [facility] 58140350393 20 MG Orally Active 1 tablet Once a day Zyrtec Allergy [facility] 34084082156 10 MG Orally Active 1 tablet Once a day Ventolin HFA [facility] [address]-94 90 MCG/ACT Active 2 puffs as Inhalation needed every [address] [facility] [address]-40 423765 UNIT/GM Active 1 application Externally to affected every 8 hrs area [address] [facility] [address]-82 325 (65 Fe) MG Active 1 tablet Sulfate Orally twice a day Simvastatin [facility] 21857490234 80 MG Orally Active 1 tablet in Once a day the evening Coreg [facility] [address]-14 6.25 MG Orally Active 1tablet twice a day Diflucan [facility] 00432960727 150 MG Orally Active 1 tablet Results No Known Results Summary Purpose eClinicalWorks Submission
--- OUTSIDE RECORDS SUMMARY | 2018-04-17 11:39 | XMS REPORT ---
[...] Status Dosage System Date Date Lasix ND 20942482959 20 MG Orally January 20, Active 1 tablet Once a day 2017 Celexa ND 41604165955 20 MG Orally Active 1 tablet Once a day Zyrtec Allergy NDC 91283688897 10 MG Orally Active 1 tablet Once a day Nystatin [facility] 64366978277 535414 UNIT/GM Active 1 application Externally to affected every 8 hrs area Omeprazole [facility] 99836354225 20 MG Orally Active 1 capsule Once a day Aspir-81 [facility] 87449130216 81 MG Orally Active 1 tablet Once a day Ferrous [facility] 86495777164 325 (65 Fe) MG Active 1 tablet Sulfate Orally twice a day Ventolin HFA [facility] 04865288290 90 Active INHALE TWO PUFFS BY MOUTH FOUR TIMES A DAY Xanax [facility] 67264345777 0.25 MG Orally Active 1 tablet once a day Diflucan [facility] 35556795304 150 MG Orally Active 1 tablet Coreg [facility] 15209943861 6.25 MG Orally Active 1tablet twice a day Breo Ellipta [facility] 12392106977 100-25 MCG/INH Active 1 puff Inhalation Once a day Nasacort [facility] 59642395898 55 MCG/ACT Active 1 puff in Allergy 24HR Nasally Once a each nostril day Simvastatin [facility] 01559443641 80 MG Orally Active 1 tablet in Once a day the evening Ventolin HFA [facility] 98534756910 90 MCG/ACT Active 2 puffs as Inhalation needed every 6 hrs Results No Known Results Summary Purpose eClinicalWorks Submission
--- OUTSIDE RECORDS SUMMARY | 2018-04-17 11:39 | XMS REPORT ---
[...] End Status Dosage System Date Date Coreg [facility] 09669535636 6.25 MG Orally Active 1tablet twice a day Nasacort [facility] 00468881230 55 MCG/ACT Active 1 puff in Allergy 24HR Nasally Once a each nostril day Celexa [facility] 88694113305 20 MG Orally Active 1 tablet Once a day Diflucan [facility] 15398636468 150 MG Orally Active 1 tablet Augmentin [facility] 21060851310 500-125 MG December 13December 20, Active 1 tablet Orally every 12 2018 2018 hrs Omeprazole [facility] 46790812036 20 MG Orally Active 1 capsule Once a day Simvastatin ND 78709275451 80 MG Orally Active 1 tablet in Once a day the evening Aspir-81 [facility] 64155527540 81 MG Orally Active 1 tablet Once a day Nystatin [facility] 77501631444 024865 UNIT/GM Active 1 application Externally to affected every 8 hrs area Ventolin HFA [facility] 73156598233 90 MCG/ACT Active 2 puffs as Inhalation needed every 6 hrs Ferrous [facility] 25766530416 325 (65 Fe) MG Active 1 tablet Sulfate Orally twice a day Ventolin HFA [facility] 66925930894 90 Active INHALE TWO PUFFS BY MOUTH FOUR TIMES A DAY Xanax [facility] 73824355943 0.25 MG Orally Active 1 tablet once a day Zyrtec Allergy [facility] 15597829024 10 MG Orally Active 1 tablet Once a day Breo Ellipta [facility] 18692194431 100-25 MCG/INH Active 1 puff Inhalation Once a day Results No Known Results Summary Purpose eClinicalWorks Submission
[2018-04-17] MEDS ORDERED: NA CHLORIDE 0.9% 500 ML ONE (12:01)
[2018-04-17] MEDS ORDERED: CEFTRIAXONE/SWI 1gm 1 GM/10 ML SYR ONE (12:08)
[2018-04-17] MEDS ORDERED: DOPAMINE/D5W 400 MG/250 ML BAG IV ONE (12:08)
[2018-04-17 12:14] LABS: Absolute Lymphocytes (CBC) 3.7 K/uL (0.7-4.9); Absolute Monocytes 0.8 K/uL (0.1-1.3); Absolute Neutrophil 8.5 K/uL (1.8-8.0); Basophils % 0.4 % (0-1.3); Eosinophils % 0.1 % (0-4.4); Hematocrit 46.2 % (36.0-45.0); Lymphocytes % 28.7 % (15.3-44.8); MCH 30.7 pg (27.0-35.0); MCV 96.8 fL (80-100); MPV 10.9 fL (7.6-11.3); Monocytes % 5.9 % (3.3-12.3); RBC Red Blood Cell Count 4.77 M/uL (3.86-4.86)
--- NOTE | 2018-04-17 12:24 | ER ---
Nurse's Notes [facility] Name: Herlinda Matias Age: 83 yrs Sex: Female : 1935 Arrival Date: 04/17/2018 Time: 11:31 Bed 2 Private MD: Diagnosis: Cardiopulmonary Arrest Presentation: 04/17 11:20 Presenting complaint: EMS states: daughter said she was adjusting her in bed, pt c/o tw2 back pain and then pt collapsed and became unresponsive, office on scene stated pt had pulse, within 10 minutes we arrived, pt had no pulse, and was asystole on monitor and was cyanotic, we started cpr, pt was intubated, given 1 round epi and 1 round bicarb, ROSC obtained, pt started trying to breathe on her own, BVM assist. Transition of care: patient was not received from another setting of care. Onset of symptoms was April 17, 2018. Risk Assessment: Do you want to hurt yourself or someone else? Patient reports no desire to harm self or others. Initial Sepsis Screen: Does the patient meet any 2 criteria? No. Patient's initial sepsis screen is negative. Does the patient have a suspected source of infection? No. Patient's initial sepsis screen is negative. Care prior to arrival: Oral intubation, CPR manually Medication(s) given: bicarb x1 and epi x1 11:20 Method Of Arrival: EMS: [facility] tw2 11:20 Acuity: LALITA 1 tw2 11:20 Care prior to arrival: Oral intubation, 24 and the lip, 7.5 tube IV initiated. 22 GA, jl7 in the left hand, Glucose check: 67. 11:20 Compressions began prior to arrival. jl7 Historical: - Allergies: 11:39 Sulfa (Sulfonamide Antibiotics); tw2 11:39 nitrofurantoin; tw2 - PMHx: 11:39 Anxiety; pulmonary fibrosis; PULMONARY HYPERTENSION; tw2 - Immunization history:: Adult Immunizations up to date. - Social history:: Smoking status: Patient/guardian denies using tobacco. - Ebola Screening: : No symptoms or risks identified at this time. Screenin:38 Abuse screen: Denies threats or abuse. Nutritional screening: No deficits noted. tw2 Tuberculosis screening: No symptoms or risk factors identified. Fall Risk None identified. Assessment: 11:37 CPR assessment: intubated. Cardiac rhythm is Sinus rhythm with run of PVS's at this tw2 time. Neuro: Level of Consciousness is unresponsive. 12:00 Reassessment: warming blanket was placed on pt at this time. tw2 Vital Signs: 11:35 BP 90 / 36; Pulse 86; Resp 14 A; Pulse Ox 100% on ETT ambu; tw2 11:59 BP 126 / 90; Pulse 75; Resp 16 A; Temp 94.9(C); Pulse Ox 95% on ETT vent; tw2 12:00 BP 62 / 50; Pulse Ox 98% on ETT vent; tw2 12:21 BP 59 / 47; tw2 12:28 BP 83 / 46; Pulse 92; tw2 12:35 BP 105 / 83; tw2 12:36 BP 105 / 79; Pulse 98; Resp 16; Temp 97.7; Pulse Ox 99% on ETT vent; tw2 12:40 BP 105 / 73; tw2 12:45 BP 113 / 90; Pulse 99; Resp 17 A; Pulse Ox 100% on ETT vent; tw2 12:50 BP 110 / 79; Pulse 99; Resp 18; Pulse Ox 99% on ETT vent; tw2 13:00 BP 115 / 80; Pulse 89; Resp 18 A; Temp 96.0(C); Pulse Ox 99% on ETT vent; jl7 13:40 BP 147 / 94; Pulse 90; Resp 18 A; Temp 96.6(C); Pulse Ox 99% on ETT vent; jl7 14:00 BP 133 / 89; Pulse 90; Resp 16 A; Temp 95.9(C); Pulse Ox 100% on ETT vent; jl7 12:00 provider notified. tw2 12:45 at 15 mcg/kg of Dopamine tw2 13:40 Dapamine decreased to 5 mcg/kg jl7 ED Course: 11:31 Patient arrived in ED. tw2 11:35 Triage completed. tw2 11:38 Kevan Lamas MD is Attending Physician. kdr 11:45 EKG done, by specimen technician. reviewed by Kevan Lamas MD. dt2 11:45 Inserted saline lock: 20 gauge in right antecubital area, using aseptic technique. jl7 Blood collected. 12:00 Assisted provider with central line placement. Set up central line tray. Triple lumen jl7 line placed in left femoral. Line placed by Geneva BOLANOS-Linda Placement verified by CXR, blood return, Dressed with Tegaderm, Blood was collected. Before procedure, did Practitioner(s) obtain informed consent? No. Patient \T\ family education about procedure, CLABSI prevention and S/S of infection? No. Time-out/Briefing performed prior to start of procedure? Yes. Was handwashing/sanitizing done immediately prior to procedure? Yes. Was patient positioned to in a way to prevent air embolism? Yes. Was procedure site sterilized? Yes, with chlorhexidine. Was the site allowed to dry? Yes. Was local anesthetic and/or sedation utilized? No. During the procedure, did the Practitioner(s) maintain a sterile field? Yes. Were unused ports clamped during insertion? Yes. Was a 2nd qualified MD obtained after 3 unsuccessful insertion attempts? No. Was blood aspirated from each lumen? Yes. After the procedure, did the Practitioner(s) clean the site and apply a sterile dressing? Yes. 12:00 Arm band placed on right wrist. jl7 12:12 Nazanin Griggs RN is Primary Nurse. tw2 12:21 Valerio Leo DO is Hospitalizing Provider. kdr 12:27 X-ray completed. Portable x-ray completed in exam room. jr1 12:29 XRAY Chest (1 view) In Process Unspecified. EDMS 13:00 Patient has correct armband on for positive identification. Placed in gown. Bed in low jl7 position. Call light in reach. Side rails up X2. environmental monitoring specialist on. Pulse ox on. NIBP on. Warm blanket given. 14:19 Patient admitted, IV remains in place. intact, No redness/swelling at site. jl7 Administered Medications: 11:58 Drug: NS 0.9% 500 ml Route: IV; Rate: bolus; Site: right antecubital; tw2 13:00 Follow up: IV Status: Completed infusion jl7 11:58 CANCELLED (Duplicate Order): NS 0.9% 500 ml IV at bolus once tw2 12:18 Drug: Dopamine drip 5 mcg/kg/min - (DOPamine 400 mg, D5W 250 ml) {Note: central line.} tw2 Route: IV; Rate: calculated rate; Site: Other; 14:13 Follow up: IV Status: Infusion continued upon admission jl7 12:30 Drug: Rocephin - (cefTRIAXone) 1 grams Route: IVPB; Infused Over: 30 mins; Site: right jl7 antecubital; 12:33 Follow up: IV Status: Completed infusion jl7 13:40 Drug: Insulin Regular Human 10 units {Co-Signature: leonico (Malcolm Diaz RN).} Route: IVP; jl7 Site: left femoral; 14:11 Follow up: Response: No adverse reaction; Other jl7 13:41 Drug: D50W 50 ml Route: IVP; Site: left femoral; sg 14:11 Follow up: Response: No adverse reaction jl7 13:42 Drug: Albuterol - atroVENT (3:1) (2.5 mg - 0.5 mg) 3 ml Route: Nebulizer; sg 14:12 Follow up: Response: No adverse reaction jl7 Point of Care Testing: Blood Glucose: 11:35 Blood Glucose: 83 mg/dL; tw2 11:35 per Shruthi Pulliam tw2 Ranges: Outcome: 12:24 Decision to Hospitalize by Provider. kdr 14:19 Admitted to ICU accompanied by nurse, family with patient, via stretcher, room 7, with jl7 oxygen, on monitor, with chart, Report called to AMANDA Crowder 14:19 Condition: stable 14:19 Discharge instructions given to patient, family, Instructed on the need for admit, Demonstrated understanding of instructions. 14:20 Outcome Resuscitation successful jl7 14:26 Patient left the ED. jl7 Signatures: Dispatcher [employer] EDMalcolm Rick RN RN sg Kevan Lamas MD MD [facility] Cheli Chabmers jr1 Nazanin Griggs RN RN tw2 Helio Young RN RN jl7 Marcy Gotti dt2 Malcolm Diaz RN sg Corrections: (The following items were deleted from the chart) 12:00 11:59 BP 126 / 90; Pulse 75bpm; Resp 16bpm; Assisted; Pulse Ox 95% ET / Ventilator; tw2 Temp 94.6F Catheter; tw2 12:53 12:45 BP 113 / 90; Pulse 99bpm; Resp 17bpm; Assisted; Pulse Ox 100% ET / Ventilator; tw2tw2
--- NOTE | 2018-04-17 12:24 | EDPHYS ---
Physician Documentation [facility] Name: Herlinda Matias Age: 83 yrs Sex: Female : 1935 Arrival Date: 04/17/2018 Time: 11:31 Bed 2 Private MD: ED Physician Kevan Lamas HPI: 04/17 15:04 This 83 yrs old Female presents to ER via EMS with complaints of Respiratory kdr Arrest. 15:05 Preceding the arrest, the patient collapsed. The arrest occurred at home. Pre-hospital kdr course: The arrest was witnessed Bystanders at the scene did not perform CPR. EMS care prior to arrival: initiation of ACLS, peripheral IV, intubation oxygen, backboard, EMS on scene time was 10 minutes elapsed prior to ACLS. ACLS has been in progress for 20 minutes. ACLS details: Initial rhythm was asystole. The presenting rhythm is bradycardia. Airway: oral intubation, Medications given by EMS prior to arrival - none, Defibrillation was not performed, an external pacer was not used, Response to therapy: return of rhythm. The patient has not experienced similar symptoms in the past. It is unknown whether or not the patient has recently seen a physician. Historical: - Allergies: 11:39 Sulfa (Sulfonamide Antibiotics); tw2 11:39 nitrofurantoin; tw2 - PMHx: 11:39 Anxiety; pulmonary fibrosis; PULMONARY HYPERTENSION; tw2 - Immunization history:: Adult Immunizations up to date. - Social history:: Smoking status: Patient/guardian denies using tobacco. - Ebola Screening: : No symptoms or risks identified at this time. ROS: 15:05 Constitutional: Negative for fever, chills, and weight loss, Eyes: Unoobtainable kdr Hematologic/Lymphatic: Negative for swollen nodes, abnormal bleeding, and unusual bruising. 15:05 Unable to obtain ROS due to patient is on ventilator. Exam: 15:05 Constitutional: This is a well developed, well nourished patient who is intubated with kdr spontaneous respirations of about 4/min. She is unresponsive Head/Face: Normocephalic, atraumatic. Eyes: Pupils equal round (4 mm) and poorly reactive to light. Lids and lashes normal. Conjunctiva and sclera are non-icteric and not injected. Cornea within normal limits. Periorbital areas with no swelling, redness, or edema. Neck: Trachea midline, no thyromegaly or masses palpated, and no cervical lymphadenopathy. Supple, full range of motion without nuchal rigidity, or vertebral point tenderness. No Meningismus. Chest/axilla: Normal chest wall appearance and motion. Nontender with no deformity. No lesions are appreciated. Cardiovascular: Regular rate and rhythm with a normal S1 and S2. No gallops, murmurs, or rubs. Normal PMI, no JVD. No pulse deficits. Respiratory: Lungs have equal breath sounds bilaterally, clear to auscultation and percussion. No rales, rhonchi or wheezes noted. No increased work of breathing, no retractions or nasal flaring. Abdomen/GI: Soft, non-tender, with normal bowel sounds. No distension or tympany. No guarding or rebound. No evidence of tenderness throughout. Back: No spinal tenderness. No costovertebral tenderness. Full range of motion. Skin: Warm, dry with normal turgor. Normal color with no rashes, no lesions, and no evidence of cellulitis. MS/ Extremity: Pulses equal, no cyanosis. Neurovascular intact. Full, normal range of motion. Vital Signs: 11:35 BP 90 / 36; Pulse 86; Resp 14 A; Pulse Ox 100% on ETT ambu; tw2 11:59 BP 126 / 90; Pulse 75; Resp 16 A; Temp 94.9(C); Pulse Ox 95% on ETT vent; tw2 12:00 BP 62 / 50; Pulse Ox 98% on ETT vent; tw2 12:21 BP 59 / 47; tw2 12:28 BP 83 / 46; Pulse 92; tw2 12:35 BP 105 / 83; tw2 12:36 BP 105 / 79; Pulse 98; Resp 16; Temp 97.7; Pulse Ox 99% on ETT vent; tw2 12:40 BP 105 / 73; tw2 12:45 BP 113 / 90; Pulse 99; Resp 17 A; Pulse Ox 100% on ETT vent; tw2 12:50 BP 110 / 79; Pulse 99; Resp 18; Pulse Ox 99% on ETT vent; tw2 13:00 BP 115 / 80; Pulse 89; Resp 18 A; Temp 96.0(C); Pulse Ox 99% on ETT vent; jl7 13:40 BP 147 / 94; Pulse 90; Resp 18 A; Temp 96.6(C); Pulse Ox 99% on ETT vent; jl7 14:00 BP 133 / 89; Pulse 90; Resp 16 A; Temp 95.9(C); Pulse Ox 100% on ETT vent; jl7 12:00 provider notified. tw2 12:45 at 15 mcg/kg of Dopamine tw2 13:40 Dapamine decreased to 5 mcg/kg jl7 Procedures: 12:29 Central Line: the site was prepped with in sterile fashion, a triple lumen catheter was snw inserted, in the left femoral vein, in 1 attempts. placement was verified, by blood return, the site was dressed with Tegaderm, using sterile technique, the patient tolerated the procedure, well. MDM: 12:24 Patient medically screened. kdr 15:05 Data reviewed: vital signs, nurses notes, lab test result(s), radiologic studies. kdr Counseling: I had a detailed discussion with the patient and/or guardian regarding: the historical points, exam findings, and any diagnostic results supporting the discharge/admit diagnosis, lab results, radiology results, the need for further work-up and treatment in the hospital. ED course: The airway was patent and appropriate. IV access was available and patent. Interventions as noted elsewhere - the patient appeared to regain likely transient stability of VS. 04/17 11:56 Order name: Basic Metabolic Panel [facility] 04/17 11:56 Order name: CBC with Diff [facility] 04/17 11:56 Order name: LFT's [facility] 04/17 11:56 Order name: Magnesium kdr 04/17 11:56 Order name: NT PRO-BNP [facility] 04/17 11:56 Order name: PT-INR [facility] 04/17 11:56 Order name: Ptt, Activated kdr 04/17 11:56 Order name: Troponin (emerg Dept Use Only) kdr 04/17 11:56 Order name: XRAY Chest (1 view) kdr 04/17 12:10 Order name: ABG eb 04/17 12:22 Order name: CBC Smear Scan EDIA 04/17 12:33 Order name: CT Head Brain wo Cont kdr 04/17 13:42 Order name: CT EDIA 04/17 11:56 Order name: EKG; Complete Time: 11:57 kdr 04/17 11:56 Order name: Cardiac monitoring; Complete Time: 11:58 kdr 04/17 11:56 Order name: EKG - Nurse/Tech; Complete Time: 11:58 kdr 04/17 11:56 Order name: IV Saline Lock; Complete Time: 11:59 kdr 04/17 11:56 Order name: Labs collected and sent; Complete Time: 11:59 kdr 04/17 11:56 Order name: O2 Per Protocol; Complete Time: 11:59 kdr 04/17 11:56 Order name: O2 Sat Monitoring; Complete Time: 11:59 kdr Administered Medications: 11:58 Drug: NS 0.9% 500 ml Route: IV; Rate: bolus; Site: right antecubital; tw2 13:00 Follow up: IV Status: Completed infusion jl7 11:58 CANCELLED (Duplicate Order): NS 0.9% 500 ml IV at bolus once tw2 12:18 Drug: Dopamine drip 5 mcg/kg/min - (DOPamine 400 mg, D5W 250 ml) {Note: central line.} tw2 Route: IV; Rate: calculated rate; Site: Other; 14:13 Follow up: IV Status: Infusion continued upon admission jl7 12:30 Drug: Rocephin - (cefTRIAXone) 1 grams Route: IVPB; Infused Over: 30 mins; Site: right jl7 antecubital; 12:33 Follow up: IV Status: Completed infusion jl7 13:40 Drug: Insulin Regular Human 10 units {Co-Signature: sg (Malcolm Diaz RN).} Route: IVP; jl7 Site: left femoral; 14:11 Follow up: Response: No adverse reaction; Other jl7 13:41 Drug: D50W 50 ml Route: IVP; Site: left femoral; sg 14:11 Follow up: Response: No adverse reaction jl7 13:42 Drug: Albuterol - atroVENT (3:1) (2.5 mg - 0.5 mg) 3 ml Route: Nebulizer; sg 14:12 Follow up: Response: No adverse reaction jl7 Point of Care Testing: Blood Glucose: 11:35 Blood Glucose: 83 mg/dL; tw2 11:35 per Shruthi Pulliam tw2 Ranges: Critical Glucose Levels:Adult <50 mg/dl or >400 mg/dl <40 mg/dl or >180 mg/dl Disposition: 15:02 Co-signature as Attending Physician, Kevan Lamas MD I agree with the assessment and kdr plan of care. 15:05 Critical Care:. kdr Disposition: 04/17/18 12:24 Hospitalization ordered by Valerio Leo for Inpatient Admission. Preliminary diagnosis is Cardiopulmonary Arrest. - Bed requested for Intensive Care Unit. - Status is Inpatient Admission. jl7 - Condition is Critical. - Problem is new. - Symptoms have improved. UTI on Admission? No Critical care time excluding procedures: 15:05 Critical care time: Bedside Care: 20 minutes, Consultation: 10 minutes. Total time: 30 kdr minutes Signatures: Dispatcher [employer] EDMS Aaliyah Norman Steven, RN RN sg Kevan Lamas MD MD kdr Geneva Culp, ORTHOPEDIC PHYSICAL THERAPIST-C ORTHOPEDIC PHYSICAL THERAPIST-Csnw Nazanin Griggs, RN RN tw2 Helio Young RN RN jl7 Malcolm Diaz RN sg Corrections: (The following items were deleted from the chart) 11:58 11:58 NS 0.9% 500 ml IV at bolus once ordered. tw2 tw 13:26 12:24 Hospitalization Ordered by Valerio Leo DO for Inpatient Admission. Preliminary bd diagnosis is Cardiopulmonary Arrest. Bed requested for Intensive Care Unit. Status is Inpatient Admission. Condition is Critical. Problem is new. Symptoms have improved. UTI on Admission? No. kdr 14:26 13:26 04/17/2018 12:24 Hospitalization Ordered by Valerio Leo DO for Inpatient jl7 Admission. Preliminary diagnosis is Cardiopulmonary Arrest. Bed requested for Intensive Care Unit. Status is Inpatient Admission. Condition is Critical. Problem is new. Symptoms have improved. UTI on Admission? No. bd
[2018-04-17 12:27] LABS: Protime INR 1.48
[2018-04-17 12:36] LABS: Arterial Blood Carboxyhemoglob 0.4 % (0-1.5); Blood Gas Oxyhemoglobin 88.8 % (94-97); Blood O2 Saturation 89.9 % (92-98.5)
[2018-04-17] MEDS ORDERED: NA CHLORIDE 0.9% 1,000 ML ONE (12:40)
--- NOTE | 2018-04-17 12:40 | RAD REPORT ---
EXAM DESCRIPTION: RAD - Chest Single View - 04/17/2018 12:31 pm CLINICAL HISTORY: CPR Chest pain. COMPARISON: Chest Single View dated 04/07/2018; Chest Single View dated 01/16/2018; Chest Single View d ated 01/15/2018; Chest Single View dated 08/16/2017 FINDINGS: Portable technique limits examination quality. Mild pulmonary edema. The heart is significantly prominent in size. Tip of the ET tube is above the c isabel. Enteric tube descends into the stomach.
[2018-04-17] MEDS ORDERED: ACETAMINOPHEN 650MG/RECT SUPP PR PRN (13:06)
[2018-04-17] MEDS ORDERED: ONDANSETRON 4 MG/2 ML VIAL IV PRN (13:06)
[2018-04-17] MEDS ORDERED: SODIUM CHLORIDE 0.9% 10ML INJ IV PRN (13:08)
[2018-04-17] MEDS ORDERED: DOPAMINE/D5W 400 MG/250 ML BAG IV PRN (13:08)
[2018-04-17 13:15] LABS: Albumin 3.2 g/dL (3.4-5.0); Bilirubin Direct 0.7 mg/dL (0-0.2); Bilirubin Total 1.2 mg/dL (0.2-1.0); Protein, Total 6.2 g/dL (6.4-8.2); Troponin (Emerg Dept Use Only) 0.08 ng/mL (0.0-0.045)
[2018-04-17 13:22] LABS: Potassium 6.3 mmol/L (3.5-5.1)
[2018-04-17 13:25] LABS: Blood Morphology Comment NOT SEEN (NOT SEEN); Platelet Estimate ADEQ; Urine White Blood Cell Casts OK
[2018-04-17] MEDS ORDERED: INSULIN -REGULAR HUMAN 50 UNIT/0.5 ML ML ONE (13:37)
[2018-04-17] MEDS ORDERED: ALBUTEROL 2.5 MG/3 ML NEB SOL ONE (13:37)
[2018-04-17] MEDS ORDERED: D50W 25 GM/50 ML SYRINGE IV ONE (13:38)
[2018-04-17] MEDS ORDERED: IPRATROPIUM BROM 0.5MG/2.5ML ONE (13:38)
--- NOTE | 2018-04-17 13:40 | RAD REPORT ---
EXAM DESCRIPTION: CT - Head Brain Wo Cont - 04/17/2018 1:19 pm CLINICAL HISTORY: Unresponsive COMPARISON: 2010 TECHNIQUE: Computed axial tomography of the head was obtained. IV contrast was not requested. All CT scans are performed using dose optimization technique as appropriate and may include automated exposure control or mA/KV adjustment according to patient size. FINDINGS: An intracranial bleed is not seen . The ventricles are normal in caliber. No extra-axial fluid collection is noted. Mild to moderate low-density areas within periventricular, deep and subcortical white matter Fluid within the sinuses/ mastoids is not seen. IMPRESSION: No acute intracranial abnormality is seen. If patient's symptoms persist MRI of the bra in would be recommended.
--- NOTE | 2018-04-17 13:57 | P.HP ---
Certification for Inpatient Patient admitted to: Inpatient With expected LOS: >2 Midnights Patient will require the following post-hospital care: Other Practitioner: I am a practitioner with admitting privileges, knowledge of patient current condition, hospital course, and medical plan of care. Services: Services provided to patient in accordance with Admission requirements found in Title 42 Section 412.3 of the Code of Federal Regulations Patient History Date of Service: 04/17/18 Primary Care Provider: Dr. Mccarty; Pulmonary-Dr. Pierce Reason for admission: Cardiac arrest History of Present Illness: 83-year-old female presented emergency room after cardiac arrest. Most information came from the ER physician and daughter who was present. Daughter reports that the patient had not been feeling well earlier this morning. She had reported some back pain. Her daughter called home health nurse to evaluate the patient. Patient apparently had been having low blood pressures. She had been told by her PCP to hold her medications. During this process apparently the patient collapsed and became unresponsive. Her daughter immediately called EMS. Within 10 min EMS arrived. She was found to be in asystole. CPR was started. Patient was given epinephrine and bicarb. Patient also was intubated. Daughter further reports the patient was recently hospitalized on 04/07/2018 for acute on chronic diastolic CHF and UTI. In the ER patient was evaluated. Patient was intubated. Patient was started on dopamine drip due to hypotension. In her workup white count was elevated at 13.0. Hemoglobin 14.6. Sodium 140, potassium 6.3. Bicarb 19. BUN of 18, creatinine 3.1 with a GFR 14. Glucose 75. Total bilirubin 1.2. AST 420. [place] [address]. Troponin 0.08. Chest x-ray showed mild pulmonary edema. CT scan shows no acute findings. Patient was slightly hypothermic. The patient was given treatment for hyperkalemia. I was called to admit the patient. Patient has multiple medical problems including end-stage pulmonary fibrosis, severe pulmonary hypertension, diastolic CHF, GERD, chronic renal disease, on chronic steroids, depression, hyperlipidemia and on chronic oxygen. The patient has been stabilized. Family present at bedside. Allergies nitrofurantoin [From Macrobid] Adverse Reaction (Unknown, Verified 01/15/18 21: 46) Shortness of breath Sulfa (Sulfonamide Antibiotics) Allergy (Uncoded 12/01/17 03:40) Unknown Home Medications: Albuterol Sulfate [Ventolin Hfa] 2 inhaler IH QID 08/17/17 Ascorbic Acid [Vitamin C] 500 mg PO DAILY 08/17/17 Aspirin [Aspirin EC 325 MG] 325 mg PO DAILY 08/17/17 Bimatoprost [Lumigan Opthalmic Drops*] 1 drops OPTH DAILY 08/17/17 Cetirizine HCl [Zyrtec] 10 mg PO DAILY 08/17/17 Citalopram Hydrobromide [Citalopram HBr] 20 mg PO DAILY 08/17/17 Omeprazole 20 mg PO DAILY 08/17/17 Sildenafil Citrate [Sildenafil] 20 mg PO TID 08/17/17 Simvastatin 80 mg PO BEDTIME 08/17/17 Brimonidine Tartrate/Timolol [Combigan 0.2%-0.5% Eye Drops] 1 drop EACH EYE BID 01/16/18 Metoprolol Succinate [Toprol Xl*] 25 mg PO DAILY 01/16/18 Spironolactone [Aldactone*] 50 mg PO DAILY 01/16/18 predniSONE [Prednisone*] 10 mg PO DAILY 01/16/18 Furosemide [Lasix] 40 mg PO DAILY 04/08/18 levoFLOXacin [Levaquin] 500 mg PO DAILY #10 tab 04/10/18 metroNIDAZOLE [Flagyl] 500 mg PO Q8H #30 tablet 04/10/18 - Past Medical/Surgical History Diabetic: No -: Pulmonary fibrosis, end-stage -: Pulmonary hypertension -: Tricuspid regurgitation -: CHF, diastolic dysfunction -: GERD -: Iron deficiency anemia -: Depression -: Hyperlipidemia -: Chronic steroids -: increase sleepiness during daytime -: Endoscopy -: cataract sx Psychosocial/ Personal History: Patient lives by herself. - Family History Father -: Stroke Mother -: Other (see notes) Notes: Rheumatoid arthritis - Social History Smoking Status: Never smoker Alcohol use: No CD- Drugs: No Caffeine use: No Place of Residence: Home Review of Systems is unable to be obtained Physical Examination - Physical Exam General: Other (Patient intubated with poor response.) HEENT: Atraumatic, Other (Pupils not reactive to light. Endotracheal in place.) Neck: Supple, No Thyromegaly Respiratory: Clear to auscultation bilaterally, Normal air movement Cardiovascular: Normal pulses, Regular rate/rhythm Gastrointestinal: Normal bowel sounds, Soft and benign Musculoskeletal: No tenderness, No warmth, Other (Cool extremities noted.) Integumentary: Other Neurological: Other (Patient intubated.) - Studies Laboratory Data (last 24 hrs) 04/17/18 11:40: PT 17.5 H, INR 1.48, APTT 21.9 L 04/17/18 11:40: WBC 13.0 H D, Hgb 14.6 D, Hct 46.2 H D, Plt Count 101 L D 04/17/18 11:40: Sodium 140, Potassium 6.3 H*, BUN 58 H D, Creatinine 3.10 H D, Glucose 75, Magnesium 2.0, Total Bilirubin 1.2 H, AST 420 H* D, ALT 195 H D, Alkaline Phosphatase 65 Assessment and Plan - Plan Impression: Syncope with collapse with noted asystole. Status post CPR. Acute encephalopathy likely toxic Septic shock Metabolic acidosis Suspect recurrent UTI Acute on chronic respiratory failure with end-stage pulmonary fibrosis on chronic steroids and home oxygen Acute on chronic diastolic CHF Hyperkalemia Acute on chronic renal failure Elevated liver function likely acute liver failure GERD Depression Plan: Patient currently intubated at this time. Poor response with poor prognosis. Patient given treatment for hyperkalemia and metabolic acidosis. Patient currently on dopamine. Will need to wean off dopamine to maintain blood pressure systolic above 100. Continue with IV fluids with bicarb drip. Suspect septic shock with possible toxic encephalopathy related to possible infection. Patient with recent UTI. Will start vancomycin and Levaquin. Will provide IV hydrocortisone as the patient is on chronic steroids. Continue with vent protocol. Neurology, nephrology, pulmonology, and Cardiology consulted. Case discussed at length with pulmonology. Pulmonology is aware of the patient. Pulmonology reports the patient has end-stage pulmonary fibrosis. Patient has poor prognosis. Case discussed at length with family and daughter who has medical power of traffic law attorney. They understand the patient is critically and has poor chance for recovery. Prognosis poor. Advanced directives address in detail. Daughter had discuss this in the past with the patient. Patient will be DNR. Due to her prognosis and current condition they are considering withdrawal of care which was suggested by pulmonology. Will check EEG. Will monitor over the next 24 hr. If no significant improvement will be address the possibility of withdrawal of care and comfort measures only. - Advance Directives Does patient have a Living Will: No Does patient have a Durable POA for Healthcare: Yes - Code Status/Comfort Care Code Status Assessed: Yes (Patient is DNR. This was discussed in detail with family) Time Spent Managing Pts Care (In Minutes): 65
[2018-04-17] MEDS ORDERED: D5W 1,000 ML with NA BICARB 8.4% 50 MEQ IV SCH ×2 (14:00)
[2018-04-17] MEDS ORDERED: Levofloxacin 250mg IV 250 MG/50 ML BAG IV SCH (14:00)
[2018-04-17] MEDS ORDERED: CALCIUM GLUCONATE 1gm/100 ML NS (4.65 mEq/100mL) IV ONE ×2 (14:00)
[2018-04-17] MEDS ORDERED: NA CHLORIDE 0.9% 1,000 ML IV SCH (14:00)
[2018-04-17 14:29] VITALS: BMI 25.4
--- NOTE | 2018-04-17 14:37 | P.CNS ---
Date of Consult: 04/17/18 Primary Care Provider: Dr. Mccarty; Pulmonary-Dr. Pierce Chief Complaint: Cardiac arrest History of Present Illness: Patient is 83 years of age well known to me he has been progressively declining from a pulmonary fibrosis and pulmonary hypertension apparently she became unresponsive today and was found to be in asystole blood pressures also been declining currently patient is on maximum ventilatory support unresponsive Allergies nitrofurantoin [From Macrobid] Adverse Reaction (Unknown, Verified 01/15/18 21: 46) Shortness of breath Sulfa (Sulfonamide Antibiotics) Allergy (Uncoded 07/12/17 03:40) Unknown Home Medications: Albuterol Sulfate [Ventolin Hfa] 2 inhaler IH QID 08/17/17 Ascorbic Acid [Vitamin C] 500 mg PO DAILY 08/17/17 Aspirin [Aspirin EC 325 MG] 325 mg PO DAILY 08/17/17 Bimatoprost [Lumigan Opthalmic Drops*] 1 drops OPTH DAILY 08/17/17 Cetirizine HCl [Zyrtec] 10 mg PO DAILY 08/17/17 Citalopram Hydrobromide [Citalopram HBr] 20 mg PO DAILY 08/17/17 Omeprazole 20 mg PO DAILY 08/17/17 Sildenafil Citrate [Sildenafil] 20 mg PO TID 08/17/17 Simvastatin 80 mg PO BEDTIME 08/17/17 Brimonidine Tartrate/Timolol [Combigan 0.2%-0.5% Eye Drops] 1 drop EACH EYE BID 01/16/18 Metoprolol Succinate [Toprol Xl*] 25 mg PO DAILY 01/16/18 Spironolactone [Aldactone*] 50 mg PO DAILY 01/16/18 predniSONE [Prednisone*] 10 mg PO DAILY 01/16/18 Furosemide [Lasix] 40 mg PO DAILY 04/08/18 levoFLOXacin [Levaquin] 500 mg PO DAILY #10 tab 04/10/18 metroNIDAZOLE [Flagyl] 500 mg PO Q8H #30 tablet 04/10/18 - Past Medical/Surgical History Diabetic: No -: Pulmonary fibrosis, end-stage -: Pulmonary hypertension -: Tricuspid regurgitation -: CHF, diastolic dysfunction -: GERD -: Iron deficiency anemia -: Depression -: Hyperlipidemia -: Chronic steroids -: increase sleepiness during daytime -: Endoscopy -: cataract sx Psychosocial/ Personal History: Patient lives by herself. - Family History Father Medical History: Stroke Mother Medical History: Other (see notes) Notes: Rheumatoid arthritis - Social History Alcohol use: No CD- Drugs: No Caffeine use: No Place of Residence: Home Review of Systems is unable to be obtained Physical Examination General: Comatose Respiratory: Clear to auscultation bilaterally, Crackles/rales (Crackles bilaterally) Cardiovascular: No edema, Normal S1 S2 Laboratory Data (last 24 hrs) 04/17/18 11:40: PT 17.5 H, INR 1.48, APTT 21.9 L 04/17/18 11:40: WBC 13.0 H D, Hgb 14.6 D, Hct 46.2 H D, Plt Count 101 L D 04/17/18 11:40: Sodium 140, Potassium 6.3 H*, BUN 58 H D, Creatinine 3.10 H D, Glucose 75, Magnesium 2.0, Total Bilirubin 1.2 H, AST 420 H* D, ALT 195 H D, Alkaline Phosphatase 65 Conclusions/Impression: Patient is 83 years of age admitted with cardiac arrest he has been declining recently in the diagnosis of pulmonary hypertension and pulmonary fibrosis became unresponsive today patient was hyperkalemia multiple organ failure renal dysfunction hypoxic currently on 70% oxygen chest x-ray shows some cardiomegaly possible pulmonary edema with metabolic acidosis discuss with the family members prognosis is very poor the considering withdrawal of care patient was on chronic prednisone agree with hydrocortisone cover with broad-spectrum antibiotic
[2018-04-17] MEDS: WATER FOR INJ,STERILE 10 ML IV SCH ×2 (14:43→20:26)
[2018-04-17] MEDS: HYDROCORTISONE SUC 100 MG INJ IV SCH ×2 (14:44→20:26)
[2018-04-17] MEDS ORDERED: VANCOMYCIN 1.25 GM in NA CHLORIDE 0.9% 250 ML IVPB SCH (15:00)
[2018-04-17] MEDS ORDERED: ENOXAPARIN 30 MG/0.3 ML SQ SCH (17:00)
[2018-04-17] MEDS ORDERED: PIPER/TAZO/NS 3.375gm 3.375 GM/100 ML BAG IVPB SCH (17:00)
[2018-04-17 20:55] LABS: Troponin I 0.25 ng/mL (0.0-0.045)
[2018-04-17] MEDS ORDERED: HYDROCORTISONE SUC 100 MG INJ IV SCH (21:00)
[2018-04-17 21:10] LABS: CKMB Creatine Kinase MB 10.8 ng/mL (0.3-3.6)
[2018-04-17] MEDS ORDERED: NOREPINEPHRINE 4mg/D5W 250mL 4 MG/250 ML BAG IV ONE (21:40)
[2018-04-17] MEDS ORDERED: NOREPINEPHRINE 4 MG in D5W 250 ML IV PRN (21:45)
[2018-04-17] MEDS ORDERED: ATROPINE SULF 1 MG/10 ML SYR IV ONE (22:07)
[2018-04-17 23:44] VITALS: BP 43/33; TEMP 101
--- NOTE | 2018-04-17 23:47 | P.DS ---
Admission Date: 04/17/18 Discharge Date: 04/17/18 Primary Care Provider: Dr. Mccarty; Pulmonary-Dr. Pierce Disposition: Reason for Admission: Cardiac arrest Brief History of Present Illness: By Dr Leo: 83-year-old female presented emergency room after cardiac arrest. Most information came from the ER physician and daughter who was present. Daughter reports that the patient had not been feeling well earlier this morning. She had reported some back pain. Her daughter called home health nurse to evaluate the patient. Patient apparently had been having low blood pressures. She had been told by her PCP to hold her medications. During this process apparently the patient collapsed and became unresponsive. Her daughter immediately called EMS. Within 10 min EMS arrived. She was found to be in asystole. CPR was started. Patient was given epinephrine and bicarb. Patient also was intubated. Daughter further reports the patient was recently hospitalized on 04/07/2018 for acute on chronic diastolic CHF and UTI. In the ER patient was evaluated. Patient was intubated. Patient was started on dopamine drip due to hypotension. In her workup white count was elevated at 13.0. Hemoglobin 14.6. Sodium 140, potassium 6.3. Bicarb 19. BUN of 18, creatinine 3.1 with a GFR 14. Glucose 75. Total bilirubin 1.2. AST 420. [place] [address]. Troponin 0.08. Chest x-ray showed mild pulmonary edema. CT scan shows no acute findings. Patient was slightly hypothermic. The patient was given treatment for hyperkalemia. I was called to admit the patient. Patient has multiple medical problems including end-stage pulmonary fibrosis, severe pulmonary hypertension, diastolic CHF, GERD, chronic renal disease, on chronic steroids, depression, hyperlipidemia and on chronic oxygen. The patient has been stabilized. Hospital Course: Did have stay in ICU the patient remained stable, requiring vasopressors to support her blood pressure and ventilator machine. The poor prognosis of the patient has been discussing with her daughter, who wants to the critical situation and decided to continue DNR status. Around 2200 her BP starts dropping as well as her heart rate. At 22:13, would notice asystole line in monitoring specialist, no heart beat hearing, no spontaneous breathing. Then she was pronounced . Vital Signs/Physical Exam: Temp Pulse Resp BP Pulse Ox 101.0 F H 116 H 26 H 113/89 91 04/17/18 19:15 04/17/18 19:15 04/17/18 19:15 04/17/18 19:15 04/17/18 19:15 Laboratory Data at Discharge: WBC 13.0 K/uL (4.3-10.9) H D 04/17/18 11:40 Hgb 14.6 g/dL (12.0-15.0) D 04/17/18 11:40 Hct 46.2 % (36.0-45.0) H D 04/17/18 11:40 Plt Count 101 K/uL (152-406) L D 04/17/18 11:40 PT 17.5 SECONDS (9.5-12.5) H 04/17/18 11:40 INR 1.48 04/17/18 11:40 APTT 21.9 SECONDS (24.3-36.9) L 04/17/18 11:40 Sodium 140 mmol/L (136-145) 04/17/18 11:40 Potassium 6.3 mmol/L (3.5-5.1) H* 04/17/18 11:40 BUN 58 mg/dL (7-18) H D 04/17/18 11:40 Creatinine 3.10 mg/dL (0.55-1.3) H D 04/17/18 11:40 Glucose 75 mg/dL (74-106) 04/17/18 11:40 Magnesium 2.0 mg/dL (1.8-2.4) 04/17/18 11:40 Total Bilirubin 1.2 mg/dL (0.2-1.0) H 04/17/18 11:40 AST 420 U/L (15-37) H* D 04/17/18 11:40 ALT 195 U/L (12-78) H D 04/17/18 11:40 Alkaline Phosphatase 65 U/L (45-117) 04/17/18 11:40 Troponin I 0.25 ng/mL (0.0-0.045) H 04/17/18 19:58 Triglycerides 126 mg/dL (<150) 04/17/18 11:40 Cholesterol 99 mg/dL (<200) 04/17/18 11:40 HDL Cholesterol 30 mg/dL (40-60) L 04/17/18 11:40 Cholesterol/HDL Ratio 3.30 04/17/18 11:40 Home Medications: Albuterol Sulfate [Ventolin Hfa] 2 inhaler IH QID 08/17/17 Ascorbic Acid [Vitamin C] 500 mg PO DAILY 08/17/17 Aspirin [Aspirin EC 325 MG] 325 mg PO DAILY 08/17/17 Bimatoprost [Lumigan Opthalmic Drops*] 1 drops OPTH DAILY 08/17/17 Cetirizine HCl [Zyrtec] 10 mg PO DAILY 08/17/17 Citalopram Hydrobromide [Citalopram HBr] 20 mg PO DAILY 08/17/17 Omeprazole 20 mg PO DAILY 08/17/17 Sildenafil Citrate [Sildenafil] 10 mg PO TID 08/17/17 Simvastatin 80 mg PO BEDTIME 08/17/17 Brimonidine Tartrate/Timolol [Combigan 0.2%-0.5% Eye Drops] 1 drop EACH EYE BID 01/16/18 Metoprolol Succinate [Toprol Xl*] 12.5 mg PO DAILY 01/16/18 Spironolactone [Aldactone*] 25 mg PO DAILY 01/16/18 predniSONE [Prednisone*] 10 mg PO DAILY 01/16/18 Furosemide [Lasix] 40 mg PO DAILY 04/08/18 Cyanocobalamin [Vitamin B-12] 1,000 mcg PO DAILY 04/17/18 Ferrous Sulfate [Feosol] 325 mg PO DAILY 04/17/18 L.acidoph,Paracasei, B.lactis [Probiotic] 1 each PO DAILY 04/17/18
[2018-04-18 00:18] VITALS: O2SAT 92
--- NOTE | 2018-04-18 07:37 | EKG ---
Test Date: 2018-04-17 Test Time: 11:30:29 Data Steward: MEASUREMENT RESULTS: Intervals: Rate: 88 NC: 182 QRSD: 90 QT: 384 QTc: 464 [place]: P: 39 NC: 182 QRS: 247 T: 56 INTERPRETIVE STATEMENTS: Normal sinus rhythm Possible Left atrial enlargement Low voltage QRS Inferior infarct, age undetermined Possible Anterolateral infarct, age undetermined Abnormal ECG Compared to ECG 04/07/2018 15:51:39 Atrial premature complex(es) no longer present Left-axis deviation no longer present Myocardial infarct finding still present Electronically Signed On 04-18-18 07:34:32 CDT by Saleem Patricia
[2018-04-18] MEDS ORDERED: VANCOMYCIN 1 GM in NA CHLORIDE 0.9% 500 ML IVPB SCH (09:00)
[2018-04-18] MEDS ORDERED: PANTOPRAZOLE 40 MG INJ IVP SCH (09:00)
--- NOTE | 2018-04-18 15:29 | EEG ---
CHART: [id number] TEST ID#: [id number] DATE OF STUDY: 04/17/2018 THE EEG WAS RECORDED PORTABLE IN THE ICU ON A 17 CHANNEL MACHINE. ELECTRODES WERE APPLIED IN THE USUAL MANNER USING THE INTERNATIONAL 10-20 SYSTEM. THE EEG IS LARGELY OBSCURED BY MUCH HIGH FREQUENCY INTERFERENCE. HOWEVER, THE ACTIVITY IS CHARACTERIZED BY A BURST-SUPPRESSION BACKGROUND AND MARKED GENERALIZED VOLTAGE ATTENUATION. THERE ARE NO FOCAL OR LATERALIZING FEATURES. NO EPILEPTIFORM ACTIVITY APPEARS. SLEEP DID NOT OCCUR. HYPERVENTILATION WAS NOT PREFORMED. PHOTIC STIMULATION PRODUCED NO DRIVING BILATERALLY. IMPRESSION: THIS IS A MARKEDLY ABNORMAL EEG DUE TO A BURST-SUPPRESSION BACKGROUND AND SIGNIFICANT GENERALIZED VOLTAGE ATTENUATION. THESE FINDINGS ARE CONSISTENT WITH A SEVERE DIFFUSE DISTURBANCE IN CEREBRAL FUNCTION AND POOR PROGNOSIS FOR GOOD RECOVERY.
== END 2018-04-17 23:25 | disposition expired | DRG 871 ==
LOC: ER 11:28 → ERHOLD 12:27 → 3RD-ICU 13:42
PROVIDERS: ADMIT Family Medicine; ATTEND Family Medicine
PROC: 5A1935Z Respiratory Ventilation, Less than 24 Consecutive Hours (ICD-10-PCS; principal; 2018-04-17)
PROC: 06HN33Z Insertion of Infusion Device into Left Femoral Vein, Percutaneous Approach (ICD-10-PCS; 2018-04-17)
PROC: 3E033XZ Introduction of Vasopressor into Peripheral Vein, Percutaneous Approach (ICD-10-PCS; 2018-04-17)
DX: A41.9 Sepsis, unspecified organism (principal); G92 Toxic encephalopathy; R65.21 Severe sepsis with septic shock; J96.20 Acute and chronic respiratory failure, unspecified whether with hypoxia or hypercapnia; I50.33 Acute on chronic diastolic (congestive) heart failure; K72.00 Acute and subacute hepatic failure without coma; E87.2 Acidosis; I13.0 Hypertensive heart and chronic kidney disease with heart failure and stage 1 through stage 4 chronic kidney disease, or unspecified chronic kidney disease; N39.0 Urinary tract infection, site not specified; N17.9 Acute kidney failure, unspecified; I46.9 Cardiac arrest, cause unspecified; Z66 Do not resuscitate; E87.5 Hyperkalemia; J84.10 Pulmonary fibrosis, unspecified; I27.20 Pulmonary hypertension, unspecified; Z88.3 Allergy status to other anti-infective agents; Z88.2 Allergy status to sulfonamides; Z79.82 Long term (current) use of aspirin; Z79.52 Long term (current) use of systemic steroids; K21.9 Gastro-esophageal reflux disease without esophagitis; E78.5 Hyperlipidemia, unspecified; F32.9 Major depressive disorder, single episode, unspecified; R09.02 Hypoxemia; T68.XXXA Hypothermia, initial encounter; N18.9 Chronic kidney disease, unspecified; Z99.81 Dependence on supplemental oxygen; I07.1 Rheumatic tricuspid insufficiency; F41.9 Anxiety disorder, unspecified
CPT/HCPCS: 36415; 70450; 71045; 80048; 80061; 80076; 82550; 82553; 82805; 82962; 83735; 83880; 84484; 85025; 85610; 85730; 92950; 93005; 94002; 94003; 94640; 95819; 99291; J0610; J0696; J1265; J1650; J1720; J2543; J7030